=== PATIENT | male | born 1985 | race Caucasian/White ===

== ENCOUNTER 2016-10-31 09:48 | Inpatient (IN) | payer MEDICAID, OTHER ==
[~2016-10-31] VITALS: Ht 165.1 cm; Wt 67.4 kg
[~2016-10-31 09:48] MED LIST: AMPH20TA PO; AMPHETAMINE SALTS PO; CLON1TAB PO; EFFE150C OR; GABAPOW41 PO; LAMI25TA OR; QUET5TAB PO
[2016-10-31 10:42] LABS: MEAN CORPUSCULAR HEMOGLOBIN 30.6 pg (27.0-33.0); MEAN CORPUSCULAR HGB CONC 33.1 g/dl (32.0-36.5); MEAN CORPUSCULAR VOLUME 92.6 fl (80.0-96.0); RED CELL DISTRIBUTION WIDTH 13.5 % (11.5-14.5); WHITE BLOOD COUNT 11.2 K/mm3 (4.0-10.0)
[2016-10-31 10:46] LABS: AMPHETAMINES LEVEL URINE NEGATIVE (NEGATIVE); BENZODIAZEPINES URINE NEGATIVE (NEGATIVE); COCAINE METABOLITE URINE NEGATIVE (NEGATIVE); CONTROL LINE INT CTR LINE PRESENT; METHADONE URINE NEGATIVE (NEGATIVE); OPIATES URINE NEGATIVE (NEGATIVE); TRICYCLIC ANTIDEPRESS URINE NEGATIVE (NEGATIVE)
[2016-10-31 11:09] LABS: ALBUMIN 4.1 GM/DL (3.2-5.2); ALBUMIN/GLOBULIN RATIO 1.28 (1.00-1.93); ALKALINE PHOSPHATASE 66 U/L (45-117); ALT/SGPT 26 U/L (12-78); ANION GAP 9 MEQ/L (8-16); AST/SGOT 16 U/L (15-37); BILIRUBIN,DIRECT 0.1 MG/DL (0.0-0.2); BILIRUBIN,TOTAL 0.3 MG/DL (0.2-1.0); BLOOD UREA NITROGEN 6 MG/DL (7-18); CALCIUM LEVEL 8.5 MG/DL (8.5-10.1); CARBON DIOXIDE LEVEL 31 MEQ/L (21-32); CHLORIDE LEVEL 105 MEQ/L (98-107); CREATININE FOR GFR 0.93 MG/DL (0.70-1.30); GLOMERULAR FILTRATION RATE > 60.0 (>60); GLUCOSE, FASTING 80 MG/DL (70-105); POTASSIUM SERUM 3.5 MEQ/L (3.5-5.1); SODIUM LEVEL 145 MEQ/L (136-145); TOTAL PROTEIN 7.3 GM/DL (6.4-8.2)
[2016-10-31] MEDS ORDERED: AMPH20CA PO (13:01)
--- NOTE | 2016-10-31 14:11 | EDDOCDS ---
Physician Documentation [facility] Name: Pola Costello Age: 31 yrs Sex: Male : 1985 Arrival Date: 10/31/2016 Time: 09:48 Bed BHU1 Private MD: NO PRIMARY PHYSICIAN, . Disposition: 10/31 12:45 Critical Care: Critical care not applicable. pc Disposition: 10/31/16 12:46 Hospitalization ordered by Idris Perez for Inpatient Admission. Preliminary diagnosis are Major depressive disorder, recurrent, moderate, Suicidal ideations. - Bed requested for Admit. - Status is Inpatient Admission. kcs - Condition is Stable. - Problem is new. - Symptoms are unchanged. HPI: 10:12 This 31 yrs old Male presents to ER via Walkin/Carried/Asstd with complaints pc of Psych Problem. 10:14 The history is obtained from the patient. The patient presents to the emergency pc department with suicidal ideation, depression, anxiety. At their worst, the symptoms were moderate. In the emergency department, the symptoms are unchanged. He is brought in by TLS staff with SI. The patient has experienced similar episodes in the past, multiple times. The patient has been recently seen by a psychiatrist. Historical: - Allergies: no known allergies; - Home Meds: 1. adderall 20mg twice a day (Last dose: 10/31/2016 09:00) 2. clonazepam 1 mg Oral tab 1 tab 3 times per day (Last dose: 10/30/2016 09:00) 3. Seroquel 100 mg Oral tab nightly (Last dose: 10/30/2016 23:00) - PMHx: ADHD; Anxiety; - PSHx: none; - The history from nurses notes was reviewed: and I agree with what is documented. - Social history: Smoking status: Patient uses tobacco products, current every day smoker. No barriers to communication noted, The patient speaks fluent Urdu, Speaks appropriately for age. - : The pt / caregiver states he / she is not on anticoagulants. Home medication list is obtained from the patient. - Hospitalizations: : No recent hospitalization is reported. - Exposure Risk Screening:: None identified. - Immunization history:: All immunizations up-to-date. - Family history: Not pertinent. - Social history:: the patient smokes cigarettes 2ppd the patient drinks alcohol. ROS: 10:14 All systems are negative except as listed. The psychiatric and neurological components pc are also addressed in the HPI. Exam: 10:14 General Appearance: alert, anxious. pc 10:14 ENT: ear, nose and throat normal, pharynx normal. 10:14 Eyes: pupils equal, round and reactive to light, extraocular motions intact. 10:14 Neck: The exam reveals no acute abnormalities. ROM is normal and painless. No nuchal rigidity is noted.. 10:14 Respiratory: breathing is even and unlabored, breath sounds are normal. 10:14 Cardiovascular: regular pulse rate, regular heart rhythm, normal heart sounds, equal and full pulses bilaterally. 10:14 Abdomen: soft, non-tender, no organomegaly, normal bowel sounds. 10:14 Skin: skin color is normal, warm, dry. 10:14 Extremities: The extremities have a grossly normal appearance, are non-tender, without acute ROM abnormalities. 10:14 Neuro: alert, oriented to person, place and time, cranial nerves normal as tested, no motor deficits, no sensory deficits. 10:14 Psych: mood is depressed, suicidal, affect is flat. Vital Signs: 09:50 BP 171 / 93; Pulse 99; Resp 18; Temp 97.7(O); Pulse Ox 99% ; Weight 72.57 kg / 159.99 cmb lbs; Height 5 ft. 5 in. (165.10 cm); Pain 0/10; 09:50 Body Mass Index 26.63 (72.57 kg, 165.10 cm) cmb MDM: 10:05 Consult PFS/PSA/Superintendent [employer]: Patient's case requires discussion with on-call pc Psychiatrist ordered. 10:05 PSA/PFS to call Nursing Java Application Developer, to enter patient data on [place] Safe Act if patient pc involuntarily admitted or transferred for SI or HI ordered. 10:05 Confirm accurate psychiatric medication list and times of last dosage ordered. pc 10:05 Detain Pt Until Medically/PFS Cleared ordered. pc 10:06 Acetaminophen Level Ordered. EDMS 10:06 Basic Metabolic Profile Ordered. EDMS 10:06 Complete Blood Count Ordered. EDMS 10:06 Drug Eval Toxicology ED Only Ordered. EDMS 10:06 Ethyl Alcohol (ethanol) Ordered. EDMS 10:06 Liver Profile Ordered. EDMS 10:06 Salicylate Level Ordered. EDMS 10:06 Thyroid Stimulating Hormone Ordered. EDMS 10:14 Differential diagnosis: depression, suicidal ideation. Plan: labs, PFS eval. pc 10:27 Consult PFS/PSA/Super[employer]: Patient's case requires discussion with on-call mk4 Psychiatrist complete. 10:27 PSA/PFS to call Nursing Java Application Developer, to enter patient data on [facility] Safe Act if patient mk4 involuntarily admitted or transferred for SI or HI complete. 11:05 Financial registration complete. lg 11:11 Complete Blood Count Reviewed. pc 11:11 Drug Eval Toxicology ED Only Reviewed. pc 11:44 Acetaminophen Level Reviewed. pc 11:44 Basic Metabolic Profile Reviewed. pc 11:44 Salicylate Level Reviewed. pc 11:44 Ethyl Alcohol (ethanol) Reviewed. pc 11:44 Liver Profile Reviewed. pc 11:44 Thyroid Stimulating Hormone Reviewed. pc 11:52 REGULAR DIET PLASTIC BOOGIE+DIET ordered. EDMS 12:45 The patient has been medically cleared for psychiatric evaluation, admission and/or pc transfer. [place] Safe Act reporting: The patient poses a significant risk to self or others, and PSA/PFS has notified the Nursing Java Application Developer and he/she will complete the required data warehousing architect. Data reviewed: old medical records, vital signs, nurses notes, lab test results. Test interpretation: LAB - all labs as ordered have been reviewed, interpreted and considered in the overall management of the clinical presentation;. The patient has been re-examined and re-evaluated. There is no appreciated change of the patient's symptoms at this time. Disposition: The historical points, examination findings, and any diagnostic results supporting the provided diagnosis, were discussed with the patient or legal guardian. The need for further work-up and/or treatment in the hospital was explained. 13:12 Admit to IM: ordered. EDMS 13:29 [facility] [place] was scanned into [employer] and attached to record. lg 13:33 M[facility] Legal paperwork was scanned into [employer] and attached to record. wild Signatures: Dispatcher [employer] EDDC Lucas Williamson MD MD pc Sleeman, Kacey, RN RN kcs Michelson, Staci, RN RN srm Ganter, LoriLee, Reg Reg lg Adriana Weston, PSA PSA jfSuki Lozano RN RN mk4 The chart was reviewed and I authenticate all verbal orders and agree with the evaluation and treatment provided.Attachments: 13:29 [facility] Payment Agreement lg MTDD
--- NOTE | 2016-10-31 14:11 | EDDOCDS ---
Nurse's Notes [facility] Name: Pola Costello Age: 31 yrs Sex: Male : 1985 Arrival Date: 10/31/2016 Time: 09:48 Bed [facility] Private MD: NO PRIMARY PHYSICIAN, . Diagnosis: Major depressive disorder, recurrent, moderate;Suicidal ideations Presentation: 10/31 09:54 Presenting complaint: Patient states: suicidal ideation and " feeling lost " for about srm a week. resides at [facility]. denies OD or injuring self. Mental Health Triage Level: Level 2: The patient displays active suicidal ideations. Adult Sepsis Screening: The patient does not have new or worsening altered mentation. Patient's respiratory rate is less than 22. Systolic blood pressure is greater than 100. Patient has a qSOFA score of 0- Negative Sepsis Screen. Suicide/Homicide risk assessment- The patient admits to and/or has been reported to be having suicidal ideations. The patient reports that he/she has not been admitted to an inpatient mental health facility in the last 30 days. The patient reports that he/she does not have a recent or current history of substance abuse. The patient reports that he/she has no prior history of suicide attempt and/or organized plan. The patient reports that he/she has experienced a significant life altering event in the last 30 days. The patient reports that he/she has adequate social support. Status: Patient is not a conference services director or dependent. Transition of care: patient was not received from another setting of care. 09:54 Acuity: DESIRAE Level 3 [facility] 09:54 Method Of Arrival: Walkin/Carried/Asstd [facility] Triage Assessment: 09:57 General: Appears in no apparent distress, Behavior is appropriate for age, cooperative. srm Pain: Denies pain. HIV screening NA for this visit Offered previously. Historical: - Allergies: no known allergies; - Home Meds: 1. adderall 20mg twice a day (Last dose: 10/31/2016 09:00) 2. clonazepam 1 mg Oral tab 1 tab 3 times per day (Last dose: 10/30/2016 09:00) 3. Seroquel 100 mg Oral tab nightly (Last dose: 10/30/2016 23:00) - PMHx: ADHD; Anxiety; - PSHx: none; - The history from nurses notes was reviewed: and I agree with what is documented. - Social history: Smoking status: Patient uses tobacco products, current every day smoker. No barriers to communication noted, The patient speaks fluent Kuwaiti, Speaks appropriately for age. - : The pt / caregiver states he / she is not on anticoagulants. Home medication list is obtained from the patient. - Hospitalizations: : No recent hospitalization is reported. - Exposure Risk Screening:: None identified. - Immunization history:: All immunizations up-to-date. - Family history: Not pertinent. - Social history:: the patient smokes cigarettes 2ppd the patient drinks alcohol. Screenin:47 Screening information is obtained from the patient. Fall risk: No risks identified. kcs Assistance ADL's: requires no assistance with activities of daily living. Abuse/DV Screen: The patient / caregiver reports he/she is: not in a situation that causes fear, pain or injury. Nutritional screening: No deficits noted. Advance Directives: Currently, there is no health care proxy. There is no living will. home support is adequate. Assessment: 10:28 General: Appears in no apparent distress, comfortable, Behavior is cooperative, sitting mk4 quietly with TLs worker , denies needs . Neurological: Level of Consciousness is awake, alert, Oriented to person, place, time. Respiratory: Airway is patent Respiratory effort is even, unlabored, Respiratory pattern is regular. 11:15 Reassessment: Patient standing in room - talking and smiling with TLS staff. Denies any kcs needs. Given coffee. Pleasant and cooperative. Respirations easy. Color = pink. Security observing.. 12:30 General: Patient eating lunch.. kcs 12:42 General: DEEPA Wilson talking with patient.. kcs 12:49 Reassessment: Patient now eating boxed lunch. Pleasant and cooperative. Security kcs observing.. 13:13 Reassessment: Patient still eating. Pleasant and cooperative. Good eye contact. Denies kcs any needs. Respirations easy. Color = pink. Security observing.. 14:08 Reassessment: Patient appears in no apparent distress at this time. Patient denies pain kcs at this time. General: Appears comfortable, well developed, well nourished, Behavior is cooperative, pleasant. Pain: Denies pain. Neurological: Level of Consciousness is awake, alert. Respiratory: Airway is patent Respiratory effort is even, unlabored, Respiratory pattern is regular, symmetrical. Derm: Skin is intact, is healthy with good turgor, Skin is dry, Skin is normal. Mental Health Eval: 12:52 Status: The patient is not a conference services director or dependent. [facility] Behavioral Health: The patient is not an established patient of [facility] Behavioral Health. Referral Information: Evaluation referral is generated by the patient himself / herself. The patient was referred for evaluation because +SI. Subjective: The patients chief complaint is PT states that about 2 weeks ago his depression began to worsen and he started having SI. PT denies plan but states he would want it as pain free as possible. PT states he trouble focusing and concentrating and is having mood swings to include depressed to manic. "I don't feel safe with myself" PT states he wants to get help before he tries to hurt himself and cannot CFS. PT's TLS worker present and he states PT has been trying to manage his symptoms but today he asked to come to ED for admition.. Delusions are denied. Patient's mood is appropriate. Hallucinations are denied. Mental Health history: ADHD, anxiety, depression, sleep disturbance, suicide attempt by OD several years ago ideation currently Mental Health Admissions: Since 2009 PT has 4 admission-three to [facility] and one [facility]. Last admission was 05/2016 Current Outpatient Mental Health Services: Psychiatrist / Agency: [facility]. Therapist / Agency: [facility]. Medical Office Technologist / Agency: [facility]. Current living environment is The patient currently lives in a [facility] apartment. Patient presents to Emergency Department with the following symptoms within the past 2 weeks: anxiety, depressed mood, labile mood, poor concentration, suicidal ideation with no plan. Substance abuse: Patient uses marijuana occasionally. Mental status exam: Patients appearance is appropriate, Patient's behavior is cooperative, Speech is normal. Affect is appropriate. Mood is appropriate. Hallucinations are denied. Appetite is normal. Memory is good. Energy level is normal. Content of thought is depressive. cannot CFS Thought process is intact. Cognitive level is oriented to person, place, time and situation Patient's insight is fair. Judgement is fair. Rapport with interviewer is good. Suicidal Ideation is present with no specific plan. Homicidal ideation is denied. Disposition: Medically cleared for disposition by Lucas Williamson MD Psychiatric Consult is performed by phone with Dr Idris Perez MD. [facility] Admission Criteria: The patient is experiencing suicidal ideation. The patient requires continuous observation and/or control to protect self, others or property. The patient's care requires a multi-modal treatment plan under close supervision and coordination due to the complexity and severity of the patient's symptoms. Legal Status: Patient's legal status will be Emergency admission: 39. [place] Safe [place] because patient was registered less than 6 months ago. DSM-V Differential Diagnosis: Unspecified Depressive Disorder (F32.9). Awaiting: transfer to [facility]. Vital Signs: 09:50 BP 171 / 93; Pulse 99; Resp 18; Temp 97.7(O); Pulse Ox 99% ; Weight 72.57 kg; Height 5 cmb ft. 5 in. (165.10 cm); Pain 0/10; 09:50 Body Mass Index 26.63 (72.57 kg, 165.10 cm) cmb Vitals: 09:50 Log In Time: October 31, 2016 at 09:45. cmb ED Course: 09:49 Patient visited by Amy Bruce. cmb 09:49 Patient moved to Waiting cmb 09:50 NO PRIMARY PHYSICIAN, . is Private Physician. cmb 09:51 RN notified that patient meets Red Flag criteria. cmb 09:55 Triage Initiated srm 09:58 Patient moved to [facility] srm 10:05 Lucas Williamson MD is Attending Physician. pc 10:07 Patient visited by Ish Blake. dpm 10:07 Pt greeted and oriented to ED. Patient advised of names of staff involved in care, dpm location of call peacock, wait times and NPO status. Patient has correct armband on for positive identification. Placed in gown. Placed in psych safe attire. Bed in low position. Side rails up X 1. Security observing. Property removed, inventory done, secured in belongings bag- placed in locked locker. Placed in locker 1. Psych Safety Check: Location: Psych Room. Visual Assessment: Cooperative. 10:16 Patient visited by Lucas Williamson MD. pc 10:26 Acetaminophen Level Sent. mk4 10:27 Basic Metabolic Profile Sent. mk4 10:27 Complete Blood Count Sent. mk4 10:27 Drug Eval Toxicology ED Only Sent. mk4 10:27 Ethyl Alcohol (ethanol) Sent. mk4 10:27 Liver Profile Sent. mk4 10:27 Salicylate Level Sent. mk4 10:27 Thyroid Stimulating Hormone Sent. mk4 10:31 Patient visited by Ish Blake. dpm 10:45 Patient visited by Ish Blkae. dpm 11:00 Patient visited by Ish Blake. dpm 11:21 Patient visited by Ish Blake. dpm 11:29 Patient visited by Ish Blake. dpm 11:50 Patient visited by Ish Blake. dpm 12:04 Patient visited by Ish Blake. dpm 12:26 Patient visited by Ish Blake. dpm 12:42 Patient visited by Ish Blake. dpm 12:46 Idris Perez MD is Hospitalizing Provider. pc 12:47 The patient / caregiver is instructed regarding the plan of care and ED course. kcs 12:47 No IV's were initiated during this patient's visit. No procedures done that require kcs assistance. 13:22 Patient visited by Ish Blake. dpm 13:29 [facility] Payment Agreement was scanned into [employer] and attached to record. lg 13:33 E Legal paperwork was scanned into [employer] and attached to record. jfb 13:38 Patient visited by Ish Blake. dpm 13:54 Patient visited by Ish Blake. dpm 14:09 Patient visited by Ish Blake. dpm Attachments: 13:33 E Legal paperwork jfb Order Results: Lab Order: Acetaminophen Level; SPEC'M 10/31/16 10:16 Test: ACETAMINOPHEN LEVEL; Value: < 2.0; Range: 10.0-30.0; Abnormal: Below low normal; Units: UG/ML; Status: F Lab Order: Basic Metabolic Profile; SPEC'M 10/31/16 10:16 Test: GLUCOSE, FASTING; Value: 80; Range: 70-105; Units: MG/DL; Status: F Test: BLOOD UREA NITROGEN; Value: 6; Range: 7-18; Abnormal: Below low normal; Units: MG/DL; Status: F Test: CREATININE FOR GFR; Value: 0.93; Range: 0.70-1.30; Units: MG/DL; Status: F Test: GLOMERULAR FILTRATION RATE; Value: > 60.0; Range: >60; Status: F Test: SODIUM LEVEL; Value: 145; Range: 136-145; Units: MEQ/L; Status: F Test: POTASSIUM SERUM; Value: 3.5; Range: 3.5-5.1; Units: MEQ/L; Status: F Test: CHLORIDE LEVEL; Value: 105; Range: 98-107; Units: MEQ/L; Status: F Test: CARBON DIOXIDE LEVEL; Value: 31; Range: 21-32; Units: MEQ/L; Status: F Test: ANION GAP; Value: 9; Range: 8-16; Units: MEQ/L; Status: F Test: CALCIUM LEVEL; Value: 8.5; Range: 8.5-10.1; Units: MG/DL; Status: F Test Note: ; Units are mL/min/1.73 m2 Chronic Kidney Disease Staging per NKF: Stage I & II GFR >=60 Normal to Mildly Decreased Stage III GFR 30-59 Moderately Decreased Stage IV GFR 15-29 Severely Decreased Stage V GFR <15 Very Little GFR Left ESRD GFR <15 on AREA INTELLIGENCE TECHNICIAN Lab Order: Complete Blood Count; SPEC'M 10/31/16 10:16 Test: WHITE BLOOD COUNT; Value: 11.2; Range: 4.0-10.0; Abnormal: Above high normal; Units: K/mm3; Status: F Test: RED BLOOD COUNT; Value: 4.81; Range: 4.30-6.10; Units: M/mm3; Status: F Test: HEMOGLOBIN; Value: 14.7; Range: 14.0-18.0; Units: g/dl; Status: F Test: HEMATOCRIT; Value: 44.5; Range: 42.0-52.0; Units: %; Status: F Test: MEAN CORPUSCULAR VOLUME; Value: 92.6; Range: 80.0-96.0; Units: fl; Status: F Test: MEAN CORPUSCULAR HEMOGLOBIN; Value: 30.6; Range: 27.0-33.0; Units: pg; Status: F Test: MEAN CORPUSCULAR HGB CONC; Value: 33.1; Range: 32.0-36.5; Units: g/dl; Status: F Test: RED CELL DISTRIBUTION WIDTH; Value: 13.5; Range: 11.5-14.5; Units: %; Status: F Test: PLATELET COUNT, AUTOMATED; Value: 252; Range: 150-450; Units: k/mm3; Status: F Lab Order: Drug Eval Toxicology ED Only; SPEC'M 10/31/16 10:16 Test: AMPHETAMINES LEVEL URINE; Value: NEGATIVE; Range: NEGATIVE; Status: F Test: BARBITURATES URINE; Value: NEGATIVE; Range: NEGATIVE; Status: F Test: BENZODIAZEPINES URINE; Value: NEGATIVE; Range: NEGATIVE; Status: F Test: CANNABINOIDS URINE; Value: POSITIVE; Range: NEGATIVE; Abnormal: Above high normal; Status: F Test: COCAINE METABOLITE URINE; Value: NEGATIVE; Range: NEGATIVE; Status: F Test: METHADONE URINE; Value: NEGATIVE; Range: NEGATIVE; Status: F Test: OPIATES URINE; Value: NEGATIVE; Range: NEGATIVE; Status: F Test: TRICYCLIC ANTIDEPRESS URINE; Value: NEGATIVE; Range: NEGATIVE; Status: F Test Note: ; FALSE POSITIVE RESULTS CAN BE CAUSED BY THE USE OF PANTOPRAZOLE (PROTONIX). Lab Order: Ethyl Alcohol (ethanol); SPEC'M 10/31/16 10:16 Test: ETHYL ALCOHOL (ETHANOL); Value: < 0.003; Range: 0.000-0.010; Units: %; Status: F Lab Order: Liver Profile; SPEC'M 10/31/16 10:16 Test: AST/SGOT; Value: 16; Range: 15-37; Units: U/L; Status: F Test: ALT/SGPT; Value: 26; Range: 12-78; Units: U/L; Status: F Test: ALKALINE PHOSPHATASE; Value: 66; Range: 45-117; Units: U/L; Status: F Test: BILIRUBIN,TOTAL; Value: 0.3; Range: 0.2-1.0; Units: MG/DL; Status: F Test: BILIRUBIN,DIRECT; Value: 0.1; Range: 0.0-0.2; Units: MG/DL; Status: F Test: TOTAL PROTEIN; Value: 7.3; Range: 6.4-8.2; Units: GM/DL; Status: F Test: ALBUMIN; Value: 4.1; Range: 3.2-5.2; Units: GM/DL; Status: F Test: ALBUMIN/GLOBULIN RATIO; Value: 1.28; Range: 1.00-1.93; Status: F Lab Order: Salicylate Level; SPEC'M 10/31/16 10:16 Test: SALICYLATE LEVEL; Value: 2.8; Range: 5.0-30.0; Abnormal: Below low normal; Units: MG/DL; Status: F Lab Order: Thyroid Stimulating Hormone; SPEC'M 10/31/16 10:16 Test: THYROID STIMULATING HORMONE; Value: 2.630; Range: 0.358-3.740; Units: uIU/ML; Status: F Outcome: 12:46 Decision to Hospitalize by Provider. pc 14:08 Discharge Assessment: Patient awake, alert and oriented x 3. No cognitive and/or kcs functional deficits noted. Patient verbalized understanding of disposition instructions. Patient awake and alert. patient administered narcotics - no. The following High Risk Discharge criteria are identified: Yes, patient has been evaluated by PSA.. Admitted to Psych accompanied by tech, via wheelchair, with chart. Condition: stable. No special radiology studies were completed. Property :Personal belongings accompany Pt. 14:10 Patient left the ED. kcs Signatures: Lucas Williamson MD MD pc Sleeman, Kacey, RN RN Chantel Hector RN RN [facility] Hugh Chino, Abisai Reg lg Adriana Weston, PSA PSA Ish Clemente dpm, Chelsea cmb King, Margaret, RN RN mk4 Corrections: (The following items were deleted from the chart) 11:17 11:15 Reassessment: Patient standing in room - talking and smiling with TLS staff. kcs Denies any needs. Given coffee. Pleasant and cooperative. Respirations easy. Color = pink.. kcs 13:18 12:52 Mental Health history: ADHD, anxiety, depression, sleep disturbance, suicide jfb attempt by OD several years ago ideation currently Mental Health Admissions: Since 2009 PT has 4 admission-three to [facility] and one [facility]. Last admission was 05/2016 Current Outpatient Mental Health Services: Psychiatrist / Agency: [facility]. Therapist / Agency: [facility] Marie Medical Office Technologist / Agency: [facility]. Current living environment is The patient currently lives in a [facility] apartment. jfb JACKD
[2016-10-31 15:03] VITALS: BP 138/89
[2016-10-31] MEDS ORDERED: MOM 30ML SUSPENSION UDC PO PRN (16:45)
[2016-10-31] MEDS ORDERED: MAALOX 30 ML SUSP *UDC PO PRN (16:45)
[2016-10-31] MEDS ORDERED: QUEtiapine FUMARATE 25 MG TAB PO PRN (16:45)
[2016-10-31] MEDS: clonazePAM 1 MG TAB PO PRN (21:30)
[2016-10-31] MEDS: QUEtiapine FUMARATE 100 MG TAB PO SCH (21:30)
[2016-11-01] MEDS: IBUPROFEN 400 MG TAB PO PRN (06:33)
[2016-11-01 06:36] VITALS: BP 141/80
[2016-11-01] MEDS: NICOTINE 21MG/24HR 1 EA TRANSDERMAL TD SCH (08:40)
[2016-11-01] MEDS: ADDERALL 5 MG TAB PO SCH ×2 (08:40→12:58)
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
--- NOTE | 2016-11-01 10:26 | HPEPDOC ---
Medical History and Physical Date of Admission Oct 31, 2016 at 14:17 History and Physical PCP: None ATTENDING: Dr. Mario Alberto Shirley HPI: 31yoM admitted to [facility] for depressive disorder unspecified, being medically examined today. No acute medical complaints today. Denies any fevers, chills, weakness, fatigue, SIGALA, CP, SOB, cough, palpitations, abdominal pain, N/V /D or changes in bowel or bladder habits. PMHx: ADHD Anxiety Panic disorder Insomnia Bipolar disorder Tobacco use Poor dentition PSHX: Denies SOCHX: Resides in: [facility] Marital Status: Single Kids: None Employment: Unemployed Tobacco use: 2 packs per day ETOH: One to 2 times per month 3-5 drinks Illicit Drugs: Marijuana monthly IV Drug Use: Denies Tattoos done unprofessionally: Denies FAMHX: Mother: , breast cancer Father: Alive, unknown Siblings: Alive, well Children: None Unexpected deaths due to medical reasons: None. ROS: As noted in HPI, otherwise 11pt ROS of systems reviewed and unremarkable PE: GEN: 31yoM, appears stated age. Well-nourished, well developed. No acute distress. Alert and oriented x 3. Pleasant, interactive. HEENT: Normocephalic, atraumatic. Pupils are equal, round, and reactive to light. Extraocular movements are intact. No nystagmus appreciated. Sclera are nonicteric. Conjunctiva without injection. Nose midline. Nasal turbinates without bogginess. EACs both patent BL. TMs both visualized and ghotra with good cone of light, no bulging or erythema. No facial asymmetry. Moist mucous membranes. Dentition poor. Pharynx pink and moist, no cobblestoning. Neck supple , trachea midline. No lymphadenopathy or thyromegaly appreciated. CHEST: Regular rate and rhythm, +S1, +S2 LUNGS: Clear to auscultation bilaterally. No wheezes, rales, or rhonchi. Breathing appears symmetric and easy. Patient is speaking in full sentences. No accessory muscle use. ABD: Round, soft, non-tender, non-distended. +Bowel sounds throughout. No rebound or guarding. No costovertebral angle tenderness. EXT: Pulses 2+ bilaterally dorsalis pedis and radial. No lower extremity edema appreciated. SKIN: [place], dry, warm. Capillary refill <2sec. No rashes. NEURO: Alert and oriented x 3. Cranial nerves III-XII are intact. No focal deficits appreciated. EK06/29/16 SR. Nonspecific T wave abnormalities. A&P: 31yoM admitted to [facility] for depressive disorder unspecified 1. Psych. Plan per Psychiatry. EKG on file. 2. Nicotine dependence. Patch available. 3. Poor dentition. No acute issues at this time. Ibuprofen if needed. Arrange dental appointment at discharge. 4. Follow up. No Primary Care Provider. Will attempt to establish PCP on discharge. 5. Leukocytosis. Patient is afebrile. Asymptomatic. Recheck CBC 6. Cannabinoid use. 7. Staff member present throughout exam, kendra Castañeda. Vital Signs Vital Signs Label Value Date Time Patient Temperature 96.4 degrees F 11/01/16 0636 Temperature Source Tympanic 11/01/16 0636 Pulse 59 11/01/16 0636 Respiratory Rate 18 bpm 11/01/16 0636 Blood Pressure Assessment 141/80 (100) 11/01/16 0636 Laboratory Data Labs 24H Item Value Date Time White Blood Count 11.2 K/mm3 H 10/31/16 1016 Red Blood Count 4.81 M/mm3 10/31/16 1016 Hemoglobin 14.7 g/dl 10/31/16 1016 Hematocrit 44.5 % 10/31/16 1016 Mean Corpuscular Volume 92.6 fl 10/31/16 1016 Mean Corpuscular Hemoglobin 30.6 pg 10/31/16 1016 Mean Corpuscular Hemoglobin Concent 33.1 g/dl 10/31/16 1016 Red Cell Distribution Width 13.5 % 10/31/16 1016 Platelet Count 252 k/mm3 10/31/16 1016 Sodium Level 145 MEQ/L 10/31/16 1016 Potassium Level 3.5 MEQ/L 10/31/16 1016 Chloride Level 105 MEQ/L 10/31/16 1016 Carbon Dioxide Level 31 MEQ/L 10/31/16 1016 Anion Gap 9 MEQ/L 10/31/16 1016 Blood Urea Nitrogen 6 MG/DL L 10/31/16 1016 Creatinine 0.93 MG/DL 10/31/16 1016 Glomerular Filtration Rate > 60.0 10/31/16 1016 Fasting Glucose 80 MG/DL 10/31/16 1016 Calcium Level 8.5 MG/DL 10/31/16 1016 Total Bilirubin 0.3 MG/DL 10/31/16 1016 Direct Bilirubin 0.1 MG/DL 10/31/16 1016 Aspartate Amino Transf (AST/SGOT) 16 U/L 10/31/16 1016 Alanine Aminotransferase (ALT/SGPT) 26 U/L 10/31/16 1016 Total Protein 7.3 GM/DL 10/31/16 1016 Albumin 4.1 GM/DL 10/31/16 1016 Albumin/Globulin Ratio 1.28 10/31/16 1016 Thyroid Stimulating Hormone (TSH) 2.630 uIU/ML 10/31/16 1016 Salicylates Level 2.8 MG/DL L 10/31/16 1016 Urine Opiates Screen NEGATIVE 10/31/16 1016 Urine Methadone Screen NEGATIVE 10/31/16 1016 Acetaminophen Level < 2.0 UG/ML L 10/31/16 1016 Urine Barbiturates, Qualitative NEGATIVE 10/31/16 1016 Urine Tricyclic Antidepressants NEGATIVE 10/31/16 1016 Urine Amphetamine Level NEGATIVE 10/31/16 1016 Urine Benzodiazepines Screen NEGATIVE 10/31/16 1016 Urine Cocaine Metabolite NEGATIVE 10/31/16 1016 Urine Cannabinoids POSITIVE H 10/31/16 1016 Ethyl Alcohol Level < 0.003 % 10/31/16 1016 Home Medications Scheduled Amphetamine/Dextroamphetamine (Amphetamine/Dextroampheta 20 mg) 1 Cap Cap 1 CAP PO BID Quetiapine Fumerate (Quetiapine Fumarate) 50 Mg Tab 100 MG PO QHS SLEEP Scheduled PRN Clonazepam (Clonazepam) 1 Mg Tab 1 MG PO TIDP PRN PRN ANXIETY Allergies Coded Allergies: No Known Drug Allergy (Verified Allergy, Unknown, 01/20/13) Chiara Sharpe Nov 01, 2016 10:26
[2016-11-01 18:00] VITALS: BP 148/82
[2016-11-01] MEDS: clonazePAM 1 MG TAB PO PRN (20:47)
[2016-11-01] MEDS: QUEtiapine FUMARATE 100 MG TAB PO SCH (20:47)
[2016-11-02 06:41] VITALS: BP 139/84
[2016-11-02 07:01] LABS: MEAN CORPUSCULAR HEMOGLOBIN 31.2 pg (27.0-33.0); MEAN CORPUSCULAR HGB CONC 34.2 g/dl (32.0-36.5); MEAN CORPUSCULAR VOLUME 91.2 fl (80.0-96.0); RED CELL DISTRIBUTION WIDTH 12.6 % (11.5-14.5); WHITE BLOOD COUNT 7.4 K/mm3 (4.0-10.0)
[2016-11-02] MEDS: ADDERALL 5 MG TAB PO SCH ×2 (08:30→13:13)
[2016-11-02] MEDS: NICOTINE 21MG/24HR 1 EA TRANSDERMAL TD SCH (08:30)
[2016-11-02] MEDS: IBUPROFEN 400 MG TAB PO PRN (11:57)
--- NOTE | 2016-11-02 15:11 | EDDOCDS ---
Physician Documentation [facility] Name: Pola Costello Age: 31 yrs Sex: Male : 1985 Arrival Date: 10/31/2016 Time: 09:48 Bed BHU1 Private MD: NO PRIMARY PHYSICIAN, . Disposition: 10/31 12:45 Critical Care: Critical care not applicable. pc Disposition: 10/31/16 12:46 Hospitalization ordered by Idris Perez for Inpatient Admission. Preliminary diagnosis are Major depressive disorder, recurrent, moderate, Suicidal ideations. - Bed requested for Admit. - Status is Inpatient Admission. kcs - Condition is Stable. - Problem is new. - Symptoms are unchanged. HPI: 10:12 This 31 yrs old Male presents to ER via Walkin/Carried/Asstd with complaints pc of Psych Problem. 10:14 The history is obtained from the patient. The patient presents to the emergency pc department with suicidal ideation, depression, anxiety. At their worst, the symptoms were moderate. In the emergency department, the symptoms are unchanged. He is brought in by [facility] staff with SI. The patient has experienced similar episodes in the past, multiple times. The patient has been recently seen by a psychiatrist. Historical: - Allergies: no known allergies; - Home Meds: 1. adderall 20mg twice a day (Last dose: 10/31/2016 09:00) 2. clonazepam 1 mg Oral tab 1 tab 3 times per day (Last dose: 10/30/2016 09:00) 3. Seroquel 100 mg Oral tab nightly (Last dose: 10/30/2016 23:00) - PMHx: ADHD; Anxiety; - PSHx: none; - The history from nurses notes was reviewed: and I agree with what is documented. - Social history: Smoking status: Patient uses tobacco products, current every day smoker. No barriers to communication noted, The patient speaks fluent Vietnamese, Speaks appropriately for age. - : The pt / caregiver states he / she is not on anticoagulants. Home medication list is obtained from the patient. - Hospitalizations: : No recent hospitalization is reported. - Exposure Risk Screening:: None identified. - Immunization history:: All immunizations up-to-date. - Family history: Not pertinent. - Social history:: the patient smokes cigarettes 2ppd the patient drinks alcohol. ROS: 10:14 All systems are negative except as listed. The psychiatric and neurological components pc are also addressed in the HPI. Exam: 10:14 General Appearance: alert, anxious. pc 10:14 ENT: ear, nose and throat normal, pharynx normal. 10:14 Eyes: pupils equal, round and reactive to light, extraocular motions intact. 10:14 Neck: The exam reveals no acute abnormalities. ROM is normal and painless. No nuchal rigidity is noted.. 10:14 Respiratory: breathing is even and unlabored, breath sounds are normal. 10:14 Cardiovascular: regular pulse rate, regular heart rhythm, normal heart sounds, equal and full pulses bilaterally. 10:14 Abdomen: soft, non-tender, no organomegaly, normal bowel sounds. 10:14 Skin: skin color is normal, warm, dry. 10:14 Extremities: The extremities have a grossly normal appearance, are non-tender, without acute ROM abnormalities. 10:14 Neuro: alert, oriented to person, place and time, cranial nerves normal as tested, no motor deficits, no sensory deficits. 10:14 Psych: mood is depressed, suicidal, affect is flat. Vital Signs: 09:50 BP 171 / 93; Pulse 99; Resp 18; Temp 97.7(O); Pulse Ox 99% ; Weight 72.57 kg / 159.99 cmb lbs; Height 5 ft. 5 in. (165.10 cm); Pain 0/10; 09:50 Body Mass Index 26.63 (72.57 kg, 165.10 cm) cmb MDM: 10:05 Consult PFS/PSA/Senior Manager Creative Services: Patient's case requires discussion with on-call pc Psychiatrist ordered. 10:05 PSA/PFS to call Nursing Cattle Sticker, to enter patient data on [place] Safe Act if patient pc involuntarily admitted or transferred for SI or HI ordered. 10:05 Confirm accurate psychiatric medication list and times of last dosage ordered. pc 10:05 Detain Pt Until Medically/PFS Cleared ordered. pc 10:06 Acetaminophen Level Ordered. EDMS 10:06 Basic Metabolic Profile Ordered. EDMS 10:06 Complete Blood Count Ordered. EDMS 10:06 Drug Eval Toxicology ED Only Ordered. EDMS 10:06 Ethyl Alcohol (ethanol) Ordered. EDMS 10:06 Liver Profile Ordered. EDMS 10:06 Salicylate Level Ordered. EDMS 10:06 Thyroid Stimulating Hormone Ordered. EDMS 10:14 Differential diagnosis: depression, suicidal ideation. Plan: labs, PFS eval. pc 10:27 Consult PFS/PSA/Senior Manager Creative Services: Patient's case requires discussion with on-call mk4 Psychiatrist complete. 10:27 PSA/PFS to call Nursing Cattle Sticker, to enter patient data on [facility] Safe Act if patient mk4 involuntarily admitted or transferred for SI or HI complete. 11:05 Financial registration complete. lg 11:11 Complete Blood Count Reviewed. pc 11:11 Drug Eval Toxicology ED Only Reviewed. pc 11:44 Acetaminophen Level Reviewed. pc 11:44 Basic Metabolic Profile Reviewed. pc 11:44 Salicylate Level Reviewed. pc 11:44 Ethyl Alcohol (ethanol) Reviewed. pc 11:44 Liver Profile Reviewed. pc 11:44 Thyroid Stimulating Hormone Reviewed. pc 11:52 REGULAR DIET PLASTIC BOOGIE+DIET ordered. EDMS 12:45 The patient has been medically cleared for psychiatric evaluation, admission and/or pc transfer. [place] Safe Act reporting: The patient poses a significant risk to self or others, and PSA/PFS has notified the Nursing Cattle Sticker and he/she will complete the required data clerk. Data reviewed: old medical records, vital signs, nurses notes, lab test results. Test interpretation: LAB - all labs as ordered have been reviewed, interpreted and considered in the overall management of the clinical presentation;. The patient has been re-examined and re-evaluated. There is no appreciated change of the patient's symptoms at this time. Disposition: The historical points, examination findings, and any diagnostic results supporting the provided diagnosis, were discussed with the patient or legal guardian. The need for further work-up and/or treatment in the hospital was explained. 13:12 Admit to IM: ordered. EDMS 13:29 [facility] [place] Agreement was scanned into [employer] and attached to record. lg 13:33 [facility] Legal paperwork was scanned into [employer] and attached to record. wild Signatures: Dispatcher [employer] EDCO Lucas Williamson MD MD pc Sleeman, Kacey, RN RN kcs Michelson, Staci, RN RN srm Ganter, LoriLee, Reg Reg lg Adriana Weston, PSA PSA jfSuki Lozano RN RN mk4 The chart was reviewed and I authenticate all verbal orders and agree with the evaluation and treatment provided.Attachments: 13:29 [facility] Payment Agreement lg Chart Complete MTDD
--- NOTE | 2016-11-02 15:11 | EDDOCDS ---
Physician Documentation [facility] Name: Pola Costello Age: 31 yrs Sex: Male : 1985 Arrival Date: 10/31/2016 Time: 09:48 Bed BHU1 Private MD: NO PRIMARY PHYSICIAN, . Disposition: 10/31 12:45 Critical Care: Critical care not applicable. pc Disposition: 10/31/16 12:46 Hospitalization ordered by Idris Perez for Inpatient Admission. Preliminary diagnosis are Major depressive disorder, recurrent, moderate, Suicidal ideations. - Bed requested for Admit. - Status is Inpatient Admission. kcs - Condition is Stable. - Problem is new. - Symptoms are unchanged. HPI: 10:12 This 31 yrs old Male presents to ER via Walkin/Carried/Asstd with complaints pc of Psych Problem. 10:14 The history is obtained from the patient. The patient presents to the emergency pc department with suicidal ideation, depression, anxiety. At their worst, the symptoms were moderate. In the emergency department, the symptoms are unchanged. He is brought in by TLS staff with SI. The patient has experienced similar episodes in the past, multiple times. The patient has been recently seen by a psychiatrist. Historical: - Allergies: no known allergies; - Home Meds: 1. adderall 20mg twice a day (Last dose: 10/31/2016 09:00) 2. clonazepam 1 mg Oral tab 1 tab 3 times per day (Last dose: 10/30/2016 09:00) 3. Seroquel 100 mg Oral tab nightly (Last dose: 10/30/2016 23:00) - PMHx: ADHD; Anxiety; - PSHx: none; - The history from nurses notes was reviewed: and I agree with what is documented. - Social history: Smoking status: Patient uses tobacco products, current every day smoker. No barriers to communication noted, The patient speaks fluent Danish, Speaks appropriately for age. - : The pt / caregiver states he / she is not on anticoagulants. Home medication list is obtained from the patient. - Hospitalizations: : No recent hospitalization is reported. - Exposure Risk Screening:: None identified. - Immunization history:: All immunizations up-to-date. - Family history: Not pertinent. - Social history:: the patient smokes cigarettes 2ppd the patient drinks alcohol. ROS: 10:14 All systems are negative except as listed. The psychiatric and neurological components pc are also addressed in the HPI. Exam: 10:14 General Appearance: alert, anxious. pc 10:14 ENT: ear, nose and throat normal, pharynx normal. 10:14 Eyes: pupils equal, round and reactive to light, extraocular motions intact. 10:14 Neck: The exam reveals no acute abnormalities. ROM is normal and painless. No nuchal rigidity is noted.. 10:14 Respiratory: breathing is even and unlabored, breath sounds are normal. 10:14 Cardiovascular: regular pulse rate, regular heart rhythm, normal heart sounds, equal and full pulses bilaterally. 10:14 Abdomen: soft, non-tender, no organomegaly, normal bowel sounds. 10:14 Skin: skin color is normal, warm, dry. 10:14 Extremities: The extremities have a grossly normal appearance, are non-tender, without acute ROM abnormalities. 10:14 Neuro: alert, oriented to person, place and time, cranial nerves normal as tested, no motor deficits, no sensory deficits. 10:14 Psych: mood is depressed, suicidal, affect is flat. Vital Signs: 09:50 BP 171 / 93; Pulse 99; Resp 18; Temp 97.7(O); Pulse Ox 99% ; Weight 72.57 kg / 159.99 cmb lbs; Height 5 ft. 5 in. (165.10 cm); Pain 0/10; 09:50 Body Mass Index 26.63 (72.57 kg, 165.10 cm) cmb MDM: 10:05 Consult PFS/PSA/Ice Maker: Patient's case requires discussion with on-call pc Psychiatrist ordered. 10:05 PSA/PFS to call Nursing Cone Machine Operator, to enter patient data on [place] Safe Act if patient pc involuntarily admitted or transferred for SI or HI ordered. 10:05 Confirm accurate psychiatric medication list and times of last dosage ordered. pc 10:05 Detain Pt Until Medically/PFS Cleared ordered. pc 10:06 Acetaminophen Level Ordered. EDMS 10:06 Basic Metabolic Profile Ordered. EDMS 10:06 Complete Blood Count Ordered. EDMS 10:06 Drug Eval Toxicology ED Only Ordered. EDMS 10:06 Ethyl Alcohol (ethanol) Ordered. EDMS 10:06 Liver Profile Ordered. EDMS 10:06 Salicylate Level Ordered. EDMS 10:06 Thyroid Stimulating Hormone Ordered. EDMS 10:14 Differential diagnosis: depression, suicidal ideation. Plan: labs, PFS eval. pc 10:27 Consult PFS/PSA/Ice Maker: Patient's case requires discussion with on-call mk4 Psychiatrist complete. 10:27 PSA/PFS to call Nursing Cone Machine Operator, to enter patient data on [facility] Safe Act if patient mk4 involuntarily admitted or transferred for SI or HI complete. 11:05 Financial registration complete. lg 11:11 Complete Blood Count Reviewed. pc 11:11 Drug Eval Toxicology ED Only Reviewed. pc 11:44 Acetaminophen Level Reviewed. pc 11:44 Basic Metabolic Profile Reviewed. pc 11:44 Salicylate Level Reviewed. pc 11:44 Ethyl Alcohol (ethanol) Reviewed. pc 11:44 Liver Profile Reviewed. pc 11:44 Thyroid Stimulating Hormone Reviewed. pc 11:52 REGULAR DIET PLASTIC BOOGIE+DIET ordered. EDMS 12:45 The patient has been medically cleared for psychiatric evaluation, admission and/or pc transfer. [place] Safe Act reporting: The patient poses a significant risk to self or others, and PSA/PFS has notified the Nursing Cone Machine Operator and he/she will complete the required clinical trial data manager. Data reviewed: old medical records, vital signs, nurses notes, lab test results. Test interpretation: LAB - all labs as ordered have been reviewed, interpreted and considered in the overall management of the clinical presentation;. The patient has been re-examined and re-evaluated. There is no appreciated change of the patient's symptoms at this time. Disposition: The historical points, examination findings, and any diagnostic results supporting the provided diagnosis, were discussed with the patient or legal guardian. The need for further work-up and/or treatment in the hospital was explained. 13:12 Admit to IM: ordered. EDMS 13:29 [facility] Payment Agreement was scanned into [employer] and attached to record. lg 13:33 [facility] Legal paperwork was scanned into [employer] and attached to record. wild Signatures: Dispatcher [employer] EDAK Lucas Williamson MD MD pc Sleeman, Kacey, RN RN kcs Michelson, Staci, RN RN srm Ganter, LoriLee, Reg Reg lg Adriana Weston, PSA PSA jfSuki Lozano RN RN mk4 The chart was reviewed and I authenticate all verbal orders and agree with the evaluation and treatment provided.Attachments: 13:29 [facility] Payment Agreement lg Chart Complete MTDD
--- NOTE | 2016-11-02 15:11 | EDDOCDS ---
Nurse's Notes [facility] Name: Pola Costello Age: 31 yrs Sex: Male : 1985 Arrival Date: 10/31/2016 Time: 09:48 Bed [facility] Private MD: NO PRIMARY PHYSICIAN, . Diagnosis: Major depressive disorder, recurrent, moderate;Suicidal ideations Presentation: 10/31 09:54 Presenting complaint: Patient states: suicidal ideation and " feeling lost " for about srm a week. resides at [facility]. denies OD or injuring self. Mental Health Triage Level: Level 2: The patient displays active suicidal ideations. Adult Sepsis Screening: The patient does not have new or worsening altered mentation. Patient's respiratory rate is less than 22. Systolic blood pressure is greater than 100. Patient has a qSOFA score of 0- Negative Sepsis Screen. Suicide/Homicide risk assessment- The patient admits to and/or has been reported to be having suicidal ideations. The patient reports that he/she has not been admitted to an inpatient mental health facility in the last 30 days. The patient reports that he/she does not have a recent or current history of substance abuse. The patient reports that he/she has no prior history of suicide attempt and/or organized plan. The patient reports that he/she has experienced a significant life altering event in the last 30 days. The patient reports that he/she has adequate social support. Status: Patient is not a billing customer service representative or dependent. Transition of care: patient was not received from another setting of care. 09:54 Acuity: DESIRAE Level 3 [facility] 09:54 Method Of Arrival: Walkin/Carried/Asstd [facility] Triage Assessment: 09:57 General: Appears in no apparent distress, Behavior is appropriate for age, cooperative. srm Pain: Denies pain. HIV screening NA for this visit Offered previously. Historical: - Allergies: no known allergies; - Home Meds: 1. adderall 20mg twice a day (Last dose: 10/31/2016 09:00) 2. clonazepam 1 mg Oral tab 1 tab 3 times per day (Last dose: 10/30/2016 09:00) 3. Seroquel 100 mg Oral tab nightly (Last dose: 10/30/2016 23:00) - PMHx: ADHD; Anxiety; - PSHx: none; - The history from nurses notes was reviewed: and I agree with what is documented. - Social history: Smoking status: Patient uses tobacco products, current every day smoker. No barriers to communication noted, The patient speaks fluent Guyanese, Speaks appropriately for age. - : The pt / caregiver states he / she is not on anticoagulants. Home medication list is obtained from the patient. - Hospitalizations: : No recent hospitalization is reported. - Exposure Risk Screening:: None identified. - Immunization history:: All immunizations up-to-date. - Family history: Not pertinent. - Social history:: the patient smokes cigarettes 2ppd the patient drinks alcohol. Screenin:47 Screening information is obtained from the patient. Fall risk: No risks identified. kcs Assistance ADL's: requires no assistance with activities of daily living. Abuse/DV Screen: The patient / caregiver reports he/she is: not in a situation that causes fear, pain or injury. Nutritional screening: No deficits noted. Advance Directives: Currently, there is no health care proxy. There is no living will. home support is adequate. Assessment: 10:28 General: Appears in no apparent distress, comfortable, Behavior is cooperative, sitting mk4 quietly with TLs worker , denies needs . Neurological: Level of Consciousness is awake, alert, Oriented to person, place, time. Respiratory: Airway is patent Respiratory effort is even, unlabored, Respiratory pattern is regular. 11:15 Reassessment: Patient standing in room - talking and smiling with TLS staff. Denies any kcs needs. Given coffee. Pleasant and cooperative. Respirations easy. Color = pink. Security observing.. 12:30 General: Patient eating lunch.. kcs 12:42 General: DEEPA Wilson talking with patient.. kcs 12:49 Reassessment: Patient now eating boxed lunch. Pleasant and cooperative. Security kcs observing.. 13:13 Reassessment: Patient still eating. Pleasant and cooperative. Good eye contact. Denies kcs any needs. Respirations easy. Color = pink. Security observing.. 14:08 Reassessment: Patient appears in no apparent distress at this time. Patient denies pain kcs at this time. General: Appears comfortable, well developed, well nourished, Behavior is cooperative, pleasant. Pain: Denies pain. Neurological: Level of Consciousness is awake, alert. Respiratory: Airway is patent Respiratory effort is even, unlabored, Respiratory pattern is regular, symmetrical. Derm: Skin is intact, is healthy with good turgor, Skin is dry, Skin is normal. Mental Health Eval: 12:52 Status: The patient is not a billing customer service representative or dependent. [facility] Behavioral Health: The patient is not an established patient of [facility] Behavioral Health. Referral Information: Evaluation referral is generated by the patient himself / herself. The patient was referred for evaluation because +SI. Subjective: The patients chief complaint is PT states that about 2 weeks ago his depression began to worsen and he started having SI. PT denies plan but states he would want it as pain free as possible. PT states he trouble focusing and concentrating and is having mood swings to include depressed to manic. "I don't feel safe with myself" PT states he wants to get help before he tries to hurt himself and cannot CFS. PT's TLS worker present and he states PT has been trying to manage his symptoms but today he asked to come to ED for admition.. Delusions are denied. Patient's mood is appropriate. Hallucinations are denied. Mental Health history: ADHD, anxiety, depression, sleep disturbance, suicide attempt by OD several years ago ideation currently Mental Health Admissions: Since 2009 PT has 4 admission-three to [facility] and one [facility]. Last admission was 05/2016 Current Outpatient Mental Health Services: Psychiatrist / Agency: [facility]. Therapist / Agency: [facility]. [facility] [facility] / Agency: [facility]. Current living environment is The patient currently lives in a [facility] apartment. Patient presents to Emergency Department with the following symptoms within the past 2 weeks: anxiety, depressed mood, labile mood, poor concentration, suicidal ideation with no plan. Substance abuse: Patient uses marijuana occasionally. Mental status exam: Patients appearance is appropriate, Patient's behavior is cooperative, Speech is normal. Affect is appropriate. Mood is appropriate. Hallucinations are denied. Appetite is normal. Memory is good. Energy level is normal. Content of thought is depressive. cannot CFS Thought process is intact. Cognitive level is oriented to person, place, time and situation Patient's insight is fair. Judgement is fair. Rapport with interviewer is good. Suicidal Ideation is present with no specific plan. Homicidal ideation is denied. Disposition: Medically cleared for disposition by Lucas Williamson MD Psychiatric Consult is performed by phone with Dr Idris Perez MD. [facility] Admission Criteria: The patient is experiencing suicidal ideation. The patient requires continuous observation and/or control to protect self, others or property. The patient's care requires a multi-modal treatment plan under close supervision and coordination due to the complexity and severity of the patient's symptoms. Legal Status: Patient's legal status will be Emergency admission: . [place] Safe Act: [place] Safe Act is not applicable because patient was registered less than 6 months ago. DSM-V Differential Diagnosis: Unspecified Depressive Disorder (F32.9). Awaiting: transfer to [facility]. 14:39 Insurance Pre-Certification: approved by: [facility]-#[id number] approved for the thru jfb the with UR on the with Belinda Perez [phone] [id number] . Vital Signs: 09:50 BP 171 / 93; Pulse 99; Resp 18; Temp 97.7(O); Pulse Ox 99% ; Weight 72.57 kg; Height 5 cmb ft. 5 in. (165.10 cm); Pain 0/10; 09:50 Body Mass Index 26.63 (72.57 kg, 165.10 cm) cmb Vitals: 09:50 Log In Time: October 31, 2016 at 09:45. cmb ED Course: 09:49 Patient visited by Amy Bruce. cmb 09:49 Patient moved to Waiting cmb 09:50 NO PRIMARY PHYSICIAN, . is Private Physician. cmb 09:51 RN notified that patient meets Red Flag criteria. cmb 09:55 Triage Initiated srm 09:58 Patient moved to [facility] srm 10:05 Lucas Williamson MD is Attending Physician. pc 10:07 Patient visited by Ish Blake. dpm 10:07 Pt greeted and oriented to ED. Patient advised of names of staff involved in care, dpm location of call peacock, wait times and NPO status. Patient has correct armband on for positive identification. Placed in gown. Placed in psych safe attire. Bed in low position. Side rails up X 1. Security observing. Property removed, inventory done, secured in belongings bag- placed in locked locker. Placed in locker 1. Psych Safety Check: Location: Psych Room. Visual Assessment: Cooperative. 10:16 Patient visited by Lucas Williamson MD. pc 10:26 Acetaminophen Level Sent. mk4 10:27 Basic Metabolic Profile Sent. mk4 10:27 Complete Blood Count Sent. mk4 10:27 Drug Eval Toxicology ED Only Sent. mk4 10:27 Ethyl Alcohol (ethanol) Sent. mk4 10:27 Liver Profile Sent. mk4 10:27 Salicylate Level Sent. mk4 10:27 Thyroid Stimulating Hormone Sent. mk4 10:31 Patient visited by Ish Blake. dpm 10:45 Patient visited by Ish Blake. dpm 11:00 Patient visited by Ish Blake. dpm 11:21 Patient visited by Ish Blake. dpm 11:29 Patient visited by Ish Blake. dpm 11:50 Patient visited by Ish Blake. dpm 12:04 Patient visited by Ish Blake. dpm 12:26 Patient visited by Ish Blake. dpm 12:42 Patient visited by Ish Blake. dpm 12:46 Idris Perez MD is Hospitalizing Provider. pc 12:47 The patient / caregiver is instructed regarding the plan of care and ED course. kcs 12:47 No IV's were initiated during this patient's visit. No procedures done that require kcs assistance. 13:22 Patient visited by Ish Blake. dpm 13:29 [facility] Payment Agreement was scanned into [employer] and attached to record. lg 13:33 E Legal paperwork was scanned into [employer] and attached to record. jfb 13:38 Patient visited by Ish Blake. dpm 13:54 Patient visited by Ish Blake. dpm 14:09 Patient visited by Ish Blake. dpm Attachments: 13:33 E Legal paperwork jfb Order Results: Lab Order: Acetaminophen Level; SPEC'M 10/31/16 10:16 Test: ACETAMINOPHEN LEVEL; Value: < 2.0; Range: 10.0-30.0; Abnormal: Below low normal; Units: UG/ML; Status: F Lab Order: Basic Metabolic Profile; SPEC'M 10/31/16 10:16 Test: GLUCOSE, FASTING; Value: 80; Range: 70-105; Units: MG/DL; Status: F Test: BLOOD UREA NITROGEN; Value: 6; Range: 7-18; Abnormal: Below low normal; Units: MG/DL; Status: F Test: CREATININE FOR GFR; Value: 0.93; Range: 0.70-1.30; Units: MG/DL; Status: F Test: GLOMERULAR FILTRATION RATE; Value: > 60.0; Range: >60; Status: F Test: SODIUM LEVEL; Value: 145; Range: 136-145; Units: MEQ/L; Status: F Test: POTASSIUM SERUM; Value: 3.5; Range: 3.5-5.1; Units: MEQ/L; Status: F Test: CHLORIDE LEVEL; Value: 105; Range: 98-107; Units: MEQ/L; Status: F Test: CARBON DIOXIDE LEVEL; Value: 31; Range: 21-32; Units: MEQ/L; Status: F Test: ANION GAP; Value: 9; Range: 8-16; Units: MEQ/L; Status: F Test: CALCIUM LEVEL; Value: 8.5; Range: 8.5-10.1; Units: MG/DL; Status: F Test Note: ; Units are mL/min/1.73 m2 Chronic Kidney Disease Staging per NKF: Stage I & II GFR >=60 Normal to Mildly Decreased Stage III GFR 30-59 Moderately Decreased Stage IV GFR 15-29 Severely Decreased Stage V GFR <15 Very Little GFR Left ESRD GFR <15 on TRANSCRIPT EVALUATOR Lab Order: Complete Blood Count; SPEC'M 10/31/16 10:16 Test: WHITE BLOOD COUNT; Value: 11.2; Range: 4.0-10.0; Abnormal: Above high normal; Units: K/mm3; Status: F Test: RED BLOOD COUNT; Value: 4.81; Range: 4.30-6.10; Units: M/mm3; Status: F Test: HEMOGLOBIN; Value: 14.7; Range: 14.0-18.0; Units: g/dl; Status: F Test: HEMATOCRIT; Value: 44.5; Range: 42.0-52.0; Units: %; Status: F Test: MEAN CORPUSCULAR VOLUME; Value: 92.6; Range: 80.0-96.0; Units: fl; Status: F Test: MEAN CORPUSCULAR HEMOGLOBIN; Value: 30.6; Range: 27.0-33.0; Units: pg; Status: F Test: MEAN CORPUSCULAR HGB CONC; Value: 33.1; Range: 32.0-36.5; Units: g/dl; Status: F Test: RED CELL DISTRIBUTION WIDTH; Value: 13.5; Range: 11.5-14.5; Units: %; Status: F Test: PLATELET COUNT, AUTOMATED; Value: 252; Range: 150-450; Units: k/mm3; Status: F Lab Order: Drug Eval Toxicology ED Only; SPEC'M 10/31/16 10:16 Test: AMPHETAMINES LEVEL URINE; Value: NEGATIVE; Range: NEGATIVE; Status: F Test: BARBITURATES URINE; Value: NEGATIVE; Range: NEGATIVE; Status: F Test: BENZODIAZEPINES URINE; Value: NEGATIVE; Range: NEGATIVE; Status: F Test: CANNABINOIDS URINE; Value: POSITIVE; Range: NEGATIVE; Abnormal: Above high normal; Status: F Test: COCAINE METABOLITE URINE; Value: NEGATIVE; Range: NEGATIVE; Status: F Test: METHADONE URINE; Value: NEGATIVE; Range: NEGATIVE; Status: F Test: OPIATES URINE; Value: NEGATIVE; Range: NEGATIVE; Status: F Test: TRICYCLIC ANTIDEPRESS URINE; Value: NEGATIVE; Range: NEGATIVE; Status: F Test Note: ; FALSE POSITIVE RESULTS CAN BE CAUSED BY THE USE OF PANTOPRAZOLE (PROTONIX). Lab Order: Ethyl Alcohol (ethanol); SPEC'M 10/31/16 10:16 Test: ETHYL ALCOHOL (ETHANOL); Value: < 0.003; Range: 0.000-0.010; Units: %; Status: F Lab Order: Liver Profile; SPEC'M 10/31/16 10:16 Test: AST/SGOT; Value: 16; Range: 15-37; Units: U/L; Status: F Test: ALT/SGPT; Value: 26; Range: 12-78; Units: U/L; Status: F Test: ALKALINE PHOSPHATASE; Value: 66; Range: 45-117; Units: U/L; Status: F Test: BILIRUBIN,TOTAL; Value: 0.3; Range: 0.2-1.0; Units: MG/DL; Status: F Test: BILIRUBIN,DIRECT; Value: 0.1; Range: 0.0-0.2; Units: MG/DL; Status: F Test: TOTAL PROTEIN; Value: 7.3; Range: 6.4-8.2; Units: GM/DL; Status: F Test: ALBUMIN; Value: 4.1; Range: 3.2-5.2; Units: GM/DL; Status: F Test: ALBUMIN/GLOBULIN RATIO; Value: 1.28; Range: 1.00-1.93; Status: F Lab Order: Salicylate Level; SPEC'M 10/31/16 10:16 Test: SALICYLATE LEVEL; Value: 2.8; Range: 5.0-30.0; Abnormal: Below low normal; Units: MG/DL; Status: F Lab Order: Thyroid Stimulating Hormone; SPEC'M 10/31/16 10:16 Test: THYROID STIMULATING HORMONE; Value: 2.630; Range: 0.358-3.740; Units: uIU/ML; Status: F Outcome: 12:46 Decision to Hospitalize by Provider. pc 14:08 Discharge Assessment: Patient awake, alert and oriented x 3. No cognitive and/or kcs functional deficits noted. Patient verbalized understanding of disposition instructions. Patient awake and alert. patient administered narcotics - no. The following High Risk Discharge criteria are identified: Yes, patient has been evaluated by PSA.. Admitted to Psych accompanied by tech, via wheelchair, with chart. Condition: stable. No special radiology studies were completed. Property :Personal belongings accompany Pt. 14:10 Patient left the ED. kcs Signatures: Lucas Williamson MD MD pc Sleeman, Kacey RN RN Chantel Hector RN RN [facility] Hugh Chino, Adriana Villalpando lg, PSA PSA Ish Clemente dpm, Chelsea cmb King, Margaret, RN RN mk4 Corrections: (The following items were deleted from the chart) 11:17 11:15 Reassessment: Patient standing in room - talking and smiling with TLS staff. kcs Denies any needs. Given coffee. Pleasant and cooperative. Respirations easy. Color = pink.. kcs 13:18 12:52 Mental Health history: ADHD, anxiety, depression, sleep disturbance, suicide jfb attempt by OD several years ago ideation currently Mental Health Admissions: Since 2009 PT has 4 admission-three to [facility] and one [facility]. Last admission was 05/2016 Current Outpatient Mental Health Services: Psychiatrist / Agency: [facility]. Therapist / Agency: [facility] Marie [employer] Col[employer] Baster / Agency: [facility]. Current living environment is The patient currently lives in a [facility] apartment. jfb Chart Complete MTDD
--- NOTE | 2016-11-02 16:04 | IPNPDOC ---
[facility] Progress Note Progress Note DATE OF SERVICE: 11/02/16 HISTORY: Assessment completed with patient today to evaluate treatment response on inpatient unit. Patient is observed to be visible in milieu, socializing with peers, attending groups, and cooperative with staff. Patient reiterates today prior to hospitalization he had been "not feeling like myself, feeling lost, depressed, feeling useless," and adds today, "I still feel like it would be okay if I just wasn't here." Patient reports 5/10 anxiety, 5/10 depression, endorses passive suicidal ideation, denies plan or intent, denies audiovisual hallucinations, and denies urge to engage in self-injurious behavior. Patient denies symptoms of mood lability. Patient indicates she did not sleep well last night, reports experiencing one nightmare, was reminded he has PRN medication available to him for insomnia if desired. Patient denies impulsivity, and physical pain. Patient reiterates today that he does not have medication at home and [facility] has his medication and manages his medications for him and, when ready, plans to return to [facility] apartment upon discharge from hospital. Patient had been meeting with medication prescriber 1 time per month through [facility] and was participating in psychotherapy every 2 weeks on an outpatient basis. Patient has also been working with a [facility] industrial cleaning technician, Theodore, whom patient describes as "awesome." Patient denies challenges with energy level and concentration, indicates appetite is stabilizing. VITAL SIGNS: Please see below. NEW TEST RESULTS: No new results. Labs completed on admission indicated low BUN and elevated WBCs, leukocytosis, patient was afebrile and asymptomatic, PA is monitoring and reran labs 11/02/16 WBC's within normal limits. UDS positive for cannabinoids on admission. CURRENT MEDICATIONS: See below. MENTAL STATUS EXAMINATION: Patient is a 31 year old male who is pleasant, cooperative, easily engaged, displays fair personal hygiene, dressed in hospital clothing, makes good eye contact, is somewhat childlike in interactional style, appears younger than stated age. Speech: Is of normal rate, rhythm, volume, coherent, spontaneous Thought processes: Clear, goal-directed Rate of thoughts: Normal. Thought content: Logical, rational. Abstract reasoning: Peers intact Associations: Intact Abnormal or psychotic thoughts: denies hallucinations, Delusions, Preoccupation with violence, Homicidal or suicidal ideation, and Obsessions. Judgment: Limited Insight: Limited Oriented to: Time, place and person. Recent and Remote Memory: Intact. Attention Span and Concentration: Fair. Language: Normal. Fund of knowledge: Adequate Mood: "I'm feeling pretty good, just still a little depressed." Appears mildly depressed and anxious at times, stable, no lability noted Affect: Full range, brightens at times DIAGNOSES: MDD, recurrent, moderate, ADHD by report, rule out elle, rule out cannabis use disorder, rule out alcohol use disorder, rule out borderline intellectual functioning ASSESSMENT: Patient is 31-year-old male who resides in [facility] housing who is been admitted for inpatient treatment secondary to recent exacerbation in symptoms of anxiety and depression with passive suicidal ideation. Patient remains pleasant and cooperative, has been participating in unit programming, and is easily engaged. Patient appears to be responding positively to influence of inpatient psychiatric environment, continues to express vague passive suicidal ideation, indicates current medication regimen, which is managed by [facility], remains effective. Patient denies need for changes to medication regimen at this time, denies medication side effects. Patient reports notable difficulty with sleep, was reminded he has PRN medication available to him to address symptoms of insomnia. Patient is currently unable to contract for safety were he to be discharged from hospital and continues to report moderate levels of anxiety and depression. Patient states unit programming, staff, and groups are "very helpful," indicates inpatient treatment is helping him to improve coping mechanisms. Will continue to monitor patient's response to current medication regimen consisting of Seroquel 100 mg po hs, Adderall 20 mg p at 09:00 and 13:00 , Klonopin 1 mg TID PRN for anxiety, and Seroquel 50 mg po hs PRN insomnia. Patient was again encouraged to limit benzodiazepine use and to attempt to develop alternative strategies for coping with symptoms of anxiety, declines hydroxyzine trial, but agrees to consider. Will also continue to monitor patient in the inpatient environment for symptom stabilization, resolution of suicidal ideation, and discharge readiness back to [facility] living environment. Patient is aware group sales coordinator is attempting to arrange meeting with [facility] to devise safe discharge plan for patient. MANAGEMENT PLAN: Continue current medication regimen of Seroquel 100 mg po hs, Adderall 20 mg p at 09:00 and 13:00, Klonopin 1 mg TID PRN for anxiety, and Seroquel 50 mg po hs PRN insomnia, monitor for medication side effects and need for dosing/medication changes. Maintain safety precautions Patient to attend groups and participate in unit programming to develop coping strategies Engage patient in discharge planning process and arrange meeting with [facility] providers to ensure safe discharge planning when appropriate Patient to follow up with PCM upon discharge Vital Signs/I&O Vital Signs Date Time Temp Pulse Resp B/P Pulse Ox O2 Delivery O2 Flow Rate FiO2 11/02/16 06:41 97.6 100 18 139/84 10/31/16 15:03 96 Room Air Laboratory Data CBC/BMP Laboratory Tests 11/02/16 06:32 Red Blood Count 4.74, Mean Corpuscular Volume 91.2, Mean Corpuscular Hemoglobin 31.2, Mean Corpuscular Hemoglobin Concent 34.2, Red Cell Distribution Width 12.6 Current Medications Current Medications Al Hydrox/Mg Hydrox/Simethicone (Mylanta) 30 ml Q4HP PRN PO HEARTBURN/ INDIGESTION; Start 10/31/16 at 16:45; Stop 11/30/16 at 16:44 Amphetamine/ Dextroamphetamine (Adderall) 20 mg BID@09,13 PO Last administered on 11/02/16 13:13; Start 11/01/16 at 09:00; Stop 11/08/16 at 08:59 Clonazepam (KlonoPIN) 1 mg TIDP PRN PO ANXIETY Last administered on 11/01/16 20:47; Start 10/31/16 at 16:45; Stop 11/07/16 at 16:44 Home Med (Med Rec Complete!) ASDIRECTED XX ; Start 10/31/16 at 13:15; Stop at 13:15; Status DC Home Med (Med Rec Complete!) ASDIRECTED XX ; Start 10/31/16 at 17:15; Stop at 17:15; Status DC Ibuprofen (Advil) 600 mg Q6HP PRN PO PAIN Last administered on 11/02/16t 11:57 ; Start 10/31/16 at 16:45; Stop 11/30/16 at 16:44 Magnesium Hydroxide (Milk Of Magnesia) 30 ml DAILYPRN PRN PO CONSTIPATION; Start 10/31/16 at 16:45; Stop 11/30/16 at 16:44 Nicotine (Nicoderm Cq 21mg) 1 patch DAILY TD Last administered on 11/02/16 08: 30; Start 11/01/16 at 09:00; Stop 12/01/16 at 08:59 Quetiapine Fumarate (SEROquel) 50 mg QHS PRN PO INSOMNIA; Start 10/31/16 at 16: 45; Stop 11/30/16 at 16:44 Quetiapine Fumarate (SEROquel) 100 mg QHS PO Last administered on 11/01/16 20: 47; Start 10/31/16 at 21:00; Stop 11/30/16 at 20:59 Allergies Coded Allergies: No Known Drug Allergy (Verified Allergy, Unknown, 01/20/13) Concetta Adam Nov 02, 2016 16:04
[2016-11-02 18:00] VITALS: BP 134/86
[2016-11-02] MEDS: clonazePAM 1 MG TAB PO PRN (20:46)
[2016-11-02] MEDS: QUEtiapine FUMARATE 100 MG TAB PO SCH (20:46)
[2016-11-03 06:41] VITALS: BP 142/79
[2016-11-03] MEDS: NICOTINE 21MG/24HR 1 EA TRANSDERMAL TD SCH (07:59)
[2016-11-03] MEDS: ADDERALL 5 MG TAB PO SCH ×2 (07:59→13:19)
[2016-11-03] MEDS: IBUPROFEN 400 MG TAB PO PRN (14:32)
[2016-11-03] MEDS: clonazePAM 1 MG TAB PO PRN ×2 (17:31→23:36)
[2016-11-03 18:15] VITALS: BP 138/77
--- NOTE | 2016-11-03 20:46 | IPNPDOC ---
[facility] Progress Note Progress Note DATE OF SERVICE: 11/03/16 HISTORY: [employer] H[employer] Instructor met with patient on inpatient unit to assess treatment progress. Patient is observed to be visible in milieu, socializing with peers, attending groups, cooperative with staff, sometimes reading quietly in room between groups.. Patient reports current anxiety level of 5/10, depression 3/10 , reiterates passive suicidal ideation involving "feeling lost and not feeling safe, feeling useless," denies plan or intent to harm self but is unable to contract for safety if discharged. Patient denies audiovisual hallucinations and denies urge to engage in self-injurious behavior. Patient denies symptoms of mood lability and impulsivity. Patient reports improved sleep last night, denies nightmares symptoms, remains aware that he has PRN medication available to him for insomnia if desired. Patient and comic book writer spoke at length today regarding patient's intermittent symptoms of anxiety, afternoon stimulant dosing , and use of benzodiazepine at night apparently for sleep. Patient was encouraged to reduce and work toward cessation of benzo, was again coached on the risks of regular benzo use, and was encouraged to trial medication currently available to him for sleep. Since being in hospital patient has taken benzo 1 time per day, informs comic book writer that when not in hospital he takes 2-3 times per day and his outpatient prescriber is familiar and comfortable with his use. Patient indicates he will not be needing ascription's for benzo or stimulant at time of discharge as these medications are made available to him on a routine basis by his [facility] provider, reiterates [facility] manages his meds and provides them to him on a weekly basis. Patient denies challenges with energy level and concentration, indicates appetite is stabilizing, and he denies physical pain. Patient has been working with a [facility] instrument lens grinder, lives in a [facility] apartment, receives outpatient psychotherapy and medication management services , and informs comic book writer plan remains to return to [facility] upon discharge. Addendum: I-stop review completed and patient's report of medication prescriptions and use is consistent with I-stop record. VITAL SIGNS: Please see below. NEW TEST RESULTS: No new results. Labs completed on admission indicated low BUN and elevated WBCs, leukocytosis, patient was afebrile and asymptomatic, PA is monitoring and reran labs 11/02/16 WBC's within normal limits. UDS positive for cannabinoids on admission. CURRENT MEDICATIONS: See below. MENTAL STATUS EXAMINATION: Patient is a 31 year old male who is pleasant, cooperative, easily engaged, displays fair personal hygiene, dressed in hospital clothing, makes good eye contact, is somewhat childlike in interactional style, appears younger than stated age. Speech: Is of normal rate, rhythm, volume, coherent, spontaneous Thought processes: Clear, goal-directed Rate of thoughts: Normal. Thought content: Logical, rational. Abstract reasoning: Peers intact Associations: Intact Abnormal or psychotic thoughts: denies hallucinations, Delusions, Preoccupation with violence, Homicidal or suicidal ideation, and Obsessions. Judgment: Limited Insight: Limited Oriented to: Time, place and person. Recent and Remote Memory: Intact. Attention Span and Concentration: Fair. Language: Normal. Fund of knowledge: Adequate Mood: "I'm feeling ok, down sometimes but starting to feel a little better." Appears depressed and anxious at times, stable, no lability noted Affect: Full range, brightens less today DIAGNOSES: MDD, recurrent, moderate, ADHD by report, rule out elle, rule out cannabis use disorder, rule out alcohol use disorder, rule out borderline intellectual functioning ASSESSMENT: Patient is 31-year-old male who resides in [facility] housing who is been admitted for inpatient treatment secondary to recent exacerbation in symptoms of anxiety and depression with passive suicidal ideation. Patient remains pleasant and cooperative, has been participating in unit programming, and is easily engaged. Patient appears to be responding positively to influence of inpatient psychiatric milieu, continues to express vague passive suicidal ideation, indicates current medication regimen, which is managed by [facility], remains effective. Patient denies need for changes to medication regimen at this time, denies medication side effects. Patient is aware he has PRN medication available to him to address sleep challenges if needed. Patient is currently unable to contract for safety were he to be discharged from hospital and continues to report moderate levels of anxiety and depression. Will continue to monitor patient's response to current medication regimen consisting of Seroquel 100 mg po hs, Adderall 20 mg p at 09:00 and 13:00, Klonopin 1 mg TID PRN for anxiety, and Seroquel 50 mg po hs PRN insomnia. Patient was again encouraged to limit benzodiazepine use, consider reduction to afternoon Adderall dose, and to attempt to develop alternative strategies for coping with symptoms of anxiety and sleep challenges, again declines hydroxyzine trial, but agrees to consider. Will also continue to monitor patient in the inpatient environment for symptom stabilization, resolution of suicidal ideation, and discharge readiness back to [facility] living environment. Patient is aware environment coordinator is attempting to arrange meeting with [facility] to devise safe discharge plan for patient for early next week. MANAGEMENT PLAN: Continue current medication regimen of Seroquel 100 mg po hs, Adderall 20 mg p at 09:00 and 13:00, Klonopin 1 mg TID PRN for anxiety, and Seroquel 50 mg po hs PRN insomnia, monitor for medication side effects and need for dosing/medication changes. Maintain safety precautions Patient to attend groups and participate in unit programming to develop coping strategies Engage patient in discharge planning process and arrange meeting with [facility] providers to ensure safe discharge planning when appropriate Patient to follow up with PCM upon discharge Vital Signs/I&O Vital Signs Date Time Temp Pulse Resp B/P Pulse Ox O2 Delivery O2 Flow Rate FiO2 11/03/16 18:15 97.2 85 16 138/77 10/31/16 15:03 96 Room Air Current Medications Current Medications Al Hydrox/Mg Hydrox/Simethicone (Mylanta) 30 ml Q4HP PRN PO HEARTBURN/ INDIGESTION; Start 10/31/16 at 16:45; Stop 11/30/16 at 16:44 Amphetamine/ Dextroamphetamine (Adderall) 20 mg BID@09,13 PO Last administered on 11/03/16 13:19; Start 11/01/16 at 09:00; Stop 11/08/16 at 08:59 Clonazepam (KlonoPIN) 1 mg TIDP PRN PO ANXIETY Last administered on 11/03/16 17:31; Start 10/31/16 at 16:45; Stop 11/07/16 at 16:44 Home Med (Med Rec Complete!) ASDIRECTED XX ; Start 10/31/16 at 13:15; Stop at 13:15; Status DC Home Med (Med Rec Complete!) ASDIRECTED XX ; Start 10/31/16 at 17:15; Stop at 17:15; Status DC Ibuprofen (Advil) 600 mg Q6HP PRN PO PAIN Last administered on 11/03/16 14:32 ; Start 10/31/16 at 16:45; Stop 11/30/16 at 16:44 Magnesium Hydroxide (Milk Of Magnesia) 30 ml DAILYPRN PRN PO CONSTIPATION; Start 10/31/16 at 16:45; Stop 11/30/16 at 16:44 Nicotine (Nicoderm Cq 21mg) 1 patch DAILY TD Last administered on 11/03/16 07: 59; Start 11/01/16 at 09:00; Stop 12/01/16 at 08:59 Quetiapine Fumarate (SEROquel) 50 mg QHS PRN PO INSOMNIA; Start 10/31/16 at 16: 45; Stop 11/30/16 at 16:44 Quetiapine Fumarate (SEROquel) 100 mg QHS PO Last administered on 11/02/16 20: 46; Start 10/31/16 at 21:00; Stop 11/30/16 at 20:59 Allergies Coded Allergies: No Known Drug Allergy (Verified Allergy, Unknown, 01/20/13) Concetta Adam Nov 03, 2016 20:46
[2016-11-03] MEDS: QUEtiapine FUMARATE 100 MG TAB PO SCH (23:34)
[2016-11-04 06:36] VITALS: BP 126/66
[2016-11-04] MEDS: ADDERALL 5 MG TAB PO SCH ×2 (08:39→13:34)
[2016-11-04] MEDS: NICOTINE 21MG/24HR 1 EA TRANSDERMAL TD SCH (08:39)
[2016-11-04 18:00] VITALS: BP 146/84
[2016-11-04] MEDS: IBUPROFEN 400 MG TAB PO PRN (19:54)
[2016-11-04] MEDS: QUEtiapine FUMARATE 100 MG TAB PO SCH (23:58)
[2016-11-05 06:17] VITALS: BP 119/65
[2016-11-05] MEDS: ADDERALL 5 MG TAB PO SCH ×2 (08:22→13:18)
[2016-11-05] MEDS: NICOTINE 21MG/24HR 1 EA TRANSDERMAL TD SCH (08:23)
--- NOTE | 2016-11-05 08:40 | IPN ---
DATE OF SERVICE: 11/04/2016 SUBJECTIVE: "I am feeling much better. I hope I can go home soon." OBJECTIVE: The patient is improving slowly. He is less depressed. He wants to contract for safety during the interview. No evidence of psychotic symptoms. Denies side effects from the medication. MENTAL STATUS EXAMINATION: The patient is dressed in [facility]. Calm. Cooperative. Fair eye contact. Speech is normal in rate and volume. Articulation is coherent and spontaneous. Mood is depressed and anxious but improving. Affect is congruent with mood. No evidence of delusions or hallucination. Short- and long-term memory are fair. The patient is fully oriented. Associations are intact. Thinking is logical. Thought content is appropriate. The patient is able to contract for safety and denies suicidal or homicidal ideation during the interview. Insight and judgment is fair. ASSESSMENT: 1. Major depressive disorder, recurrent, moderate. 2. Attention deficit hyperactivity disorder (ADHD) by report. 3. Tetrahydrocannabinol (THC) abuse. 4. Rule out borderline intellectual functioning. PLAN: 1. Continue with Seroquel 100 mg by mouth nightly. 2. Continue with clonazepam 1 mg three times a day as needed for anxiety. 3. Continue medication management, individual and group therapy.
[2016-11-05] MEDS: clonazePAM 1 MG TAB PO PRN ×2 (17:21→22:41)
[2016-11-05 18:00] VITALS: BP 143/83
[2016-11-05] MEDS: QUEtiapine FUMARATE 100 MG TAB PO SCH (22:41)
[2016-11-06 06:40] VITALS: BP 124/80
[2016-11-06] MEDS: NICOTINE 21MG/24HR 1 EA TRANSDERMAL TD SCH (08:10)
[2016-11-06] MEDS: ADDERALL 5 MG TAB PO SCH ×2 (08:11→12:50)
[2016-11-06 18:00] VITALS: BP 144/85
[2016-11-06] MEDS: QUEtiapine FUMARATE 100 MG TAB PO SCH (22:46)
--- NOTE | 2016-11-07 01:10 | IPNPDOC ---
[facility] Progress Note Progress Note DATE OF SERVICE: 11/06/16 SUBJECTIVE: Patient reports ongoing daily mood improvement. He reports fair sleep and appetite. Patient reports feeling comfortable with discharge to home tomorrow. He currently denies SI/HI and AH/VH. No med s/e reported. MENTAL STATUS EXAMINATION: The patient is dressed in home clothing, in NAD. speech: spontaneous, RRR. Mood is anxious. Affect is anxious. No evidence of delusions or hallucinations. Short and long-term memory are intact. Patient is alert and oriented. Associations are intact. Thinking is logical. Thought content is appropriate. The patient is denying suicidal or homicidal ideations during the interview. Insight and judgment is limited. ASSESSMENT: 1. Depressive d/o, unspecified 2. ADHD PLAN: - Continue current psychotropic medication regimen. - Continue medical management, individual and group therapy. - Patient tentative discharge scheduled tomorrow. Vital Signs/I&O Vital Signs Date Time Temp Pulse Resp B/P Pulse Ox O2 Delivery O2 Flow Rate FiO2 11/06/16 18:00 97.9 130 16 144/85 Current Medications Current Medications Al Hydrox/Mg Hydrox/Simethicone (Mylanta) 30 ml Q4HP PRN PO HEARTBURN/ INDIGESTION; Start 10/31/16 at 16:45; Stop 11/30/16 at 16:44 Amphetamine/ Dextroamphetamine (Adderall) 20 mg BID@09,13 PO Last administered on 11/06/16 12:50; Start 11/01/16 at 09:00; Stop 11/08/16 at 08:59 Clonazepam (KlonoPIN) 1 mg TIDP PRN PO ANXIETY Last administered on 11/05/16 22:41; Start 10/31/16 at 16:45; Stop 11/13/16 at 16:44 Home Med (Med Rec Complete!) ASDIRECTED XX ; Start 10/31/16 at 13:15; Stop at 13:15; Status DC Home Med (Med Rec Complete!) ASDIRECTED XX ; Start 10/31/16 at 17:15; Stop at 17:15; Status DC Ibuprofen (Advil) 600 mg Q6HP PRN PO PAIN Last administered on 11/04/16 19:54 ; Start 10/31/16 at 16:45; Stop 11/30/16 at 16:44 Magnesium Hydroxide (Milk Of Magnesia) 30 ml DAILYPRN PRN PO CONSTIPATION; Start 10/31/16 at 16:45; Stop 11/30/16 at 16:44 Nicotine (Nicoderm Cq 21mg) 1 patch DAILY TD Last administered on 11/06/16 08: 10; Start 11/01/16 at 09:00; Stop 12/01/16 at 08:59 Quetiapine Fumarate (SEROquel) 50 mg QHS PRN PO INSOMNIA; Start 10/31/16 at 16: 45; Stop 11/30/16 at 16:44 Quetiapine Fumarate (SEROquel) 100 mg QHS PO Last administered on 11/06/16 22: 46; Start 10/31/16 at 21:00; Stop 11/30/16 at 20:59 Allergies Coded Allergies: No Known Drug Allergy (Verified Allergy, Unknown, 01/20/13) ANGELITO DAVENPORT MD Nov 07, 2016 01:10
[2016-11-07 06:26] VITALS: BP 105/61
[2016-11-07] MEDS ORDERED: NICO21PAT TD (08:33)
[2016-11-07] MEDS: NICOTINE 21MG/24HR 1 EA TRANSDERMAL TD SCH (09:00)
[2016-11-07] MEDS: ADDERALL 5 MG TAB PO SCH (10:20)
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
== END 2016-11-07 12:20 | disposition home or self-care (01) | DRG 751 ==
LOC: M ED 09:48 → M PSY 14:17
PROVIDERS: ADMIT Psychiatry & Neurology Psychiatry; ATTEND Psychiatry & Neurology Psychiatry
DX: F33.1 Major depressive disorder, recurrent, moderate (principal); F41.1 Generalized anxiety disorder; F10.10 Alcohol abuse, uncomplicated; F12.10 Cannabis abuse, uncomplicated; G47.00 Insomnia, unspecified; R41.83 Borderline intellectual functioning; F17.210 Nicotine dependence, cigarettes, uncomplicated; Z79.899 Other long term (current) drug therapy

== ENCOUNTER 2016-12-15 12:56 | Emergency (ER) | payer OTHER ==
[~2016-12-15] VITALS: Ht 165.1 cm; Wt 68.0 kg
[~2016-12-15 12:56] MED LIST changes: +AMPH20CA PO; +NICO21PAT TD
[2016-12-15 15:03] VITALS: BP 134/81
== END 2016-12-15 15:34 | disposition home or self-care (01) ==
LOC: M ED 15:03
DX: F15.20 Other stimulant dependence, uncomplicated (principal); F41.9 Anxiety disorder, unspecified; F32.9 Major depressive disorder, single episode, unspecified; I10 Essential (primary) hypertension; F17.200 Nicotine dependence, unspecified, uncomplicated

== ENCOUNTER 2017-03-15 01:32 | Inpatient (IN) | payer OTHER ==
[~2017-03-15] VITALS: Ht 162.6 cm; Wt 69.8 kg
[2017-03-15 02:45] LABS: MEAN CORPUSCULAR HEMOGLOBIN 31.3 pg (27.0-33.0); MEAN CORPUSCULAR HGB CONC 33.8 g/dl (32.0-36.5); MEAN CORPUSCULAR VOLUME 92.4 fl (80.0-96.0); RED CELL DISTRIBUTION WIDTH 12.9 % (11.5-14.5); WHITE BLOOD COUNT 8.8 K/mm3 (4.0-10.0)
[2017-03-15 03:00] LABS: METHADONE URINE NEGATIVE (NEGATIVE)
[2017-03-15 03:07] LABS: ALBUMIN/GLOBULIN RATIO 1.21 (1.00-1.93); ALKALINE PHOSPHATASE 69 U/L (45-117); ALT/SGPT 34 U/L (12-78); ANION GAP 6 MEQ/L (8-16); AST/SGOT 15 U/L (15-37); BILIRUBIN,DIRECT < 0.1 MG/DL (0.0-0.2); BILIRUBIN,TOTAL 0.2 MG/DL (0.2-1.0); BLOOD UREA NITROGEN 8 MG/DL (7-18); CARBON DIOXIDE LEVEL 32 MEQ/L (21-32); CHLORIDE LEVEL 105 MEQ/L (98-107); CREATININE FOR GFR 0.73 MG/DL (0.70-1.30); GLOMERULAR FILTRATION RATE > 60.0 (>60); GLUCOSE, FASTING 88 MG/DL (70-105); POTASSIUM SERUM 3.6 MEQ/L (3.5-5.1); SODIUM LEVEL 143 MEQ/L (136-145); TOTAL PROTEIN 7.3 GM/DL (6.4-8.2)
[2017-03-15] MEDS ORDERED: traZODone 50 MG TAB PO PRN (03:30)
[2017-03-15] MEDS ORDERED: MOM 30ML SUSPENSION UDC PO PRN (03:30)
[2017-03-15] MEDS ORDERED: ACETAMINOPHEN TAB 650MG DOSE (2X325MG) PO PRN (03:30)
[2017-03-15] MEDS ORDERED: LORazepam 1 MG TAB PO PRN (03:30)
[2017-03-15] MEDS ORDERED: MAALOX 30 ML SUSP *UDC PO PRN (03:30)
[2017-03-15] MEDS ORDERED: ADDE5TAB5 PO (03:40)
[2017-03-15 04:55] VITALS: BP 138/90
[2017-03-15] MEDS: CHLORHEXIDINE GLUCONATE 0.12 % 15ML UDC (PERIDEX ORAL RINSE) SSP SCH ×4 (09:00→22:12)
[2017-03-15] MEDS: VENLAFAXINE **XR** 37.5 MG CAPSULE PO SCH (09:00)
[2017-03-15] MEDS ORDERED: hydrOXYzine 25 MG TAB PO PRN (09:30)
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
[2017-03-15 18:00] VITALS: BP 132/93
[2017-03-15] MEDS: NICOTINE 21MG/24HR 1 EA TRANSDERMAL TD SCH (18:05)
[2017-03-15 19:24] LABS: METHADONE URINE NEGATIVE (NEGATIVE)
[2017-03-15] MEDS: QUEtiapine FUMARATE 100 MG TAB PO SCH (22:11)
[2017-03-16] MEDS: IBUPROFEN 400 MG TAB PO PRN (05:25)
[2017-03-16 06:00] VITALS: BP 142/100
[2017-03-16] MEDS: CHLORHEXIDINE GLUCONATE 0.12 % 15ML UDC (PERIDEX ORAL RINSE) SSP SCH ×3 (09:00→22:59)
[2017-03-16] MEDS ORDERED: NICOTINE 21MG/24HR 1 EA TRANSDERMAL TD SCH (09:00)
[2017-03-16] MEDS: VENLAFAXINE **XR** 37.5 MG CAPSULE PO SCH (09:11)
[2017-03-16] MEDS: NICOTINE 21MG/24HR 1 EA TRANSDERMAL TD SCH (09:11)
[2017-03-16 18:00] VITALS: BP 140/86
--- NOTE | 2017-03-16 20:26 | IPN ---
DATE: 03/16/2017 A 31-year-old male with history of depression, unspecified, personality disorder, was admitted with exacerbation of depressive symptoms and suicidal ideation. SUBJECTIVE: "I'm feeling about the same." OBJECTIVE: No major changes from yesterday at admission. The patient is depressed. Reports intermittent suicidal thoughts. Facial expression is restricted. Has psychomotor retardation. The patient denies side effects from the medication. He slept well with the help of the medication. No evidence of psychotic features. MENTAL STATUS EXAMINATION: The patient is dressed in [facility]. The patient is cooperative during exam. Poor eye contact. Speech is slow and monotone. Mood is depressed and anxious. Affect is restricted. No evidence of delusions or hallucinations. Memory, attention and concentration are fair. The patient is able to contract for safety during the interview. Insight and judgment is limited. ASSESSMENT: 1. Depression. 2. Suicidal ideation. PLAN: 1. Increase Effexor XR to 75 mg by mouth every morning. 2. Continue with Seroquel 100 mg by mouth nightly. 3. Continue close observation. 4. Continue medication management, individual and group therapy.
[2017-03-16] MEDS: QUEtiapine FUMARATE 100 MG TAB PO SCH (22:59)
[2017-03-17 06:07] VITALS: BP 137/88
[2017-03-17] MEDS: VENLAFAXINE **XR** 75MG CAPSULE PO SCH (09:35)
[2017-03-17] MEDS: CHLORHEXIDINE GLUCONATE 0.12 % 15ML UDC (PERIDEX ORAL RINSE) SSP SCH ×3 (09:36→23:34)
[2017-03-17] MEDS: NICOTINE 21MG/24HR 1 EA TRANSDERMAL TD SCH (09:36)
[2017-03-17] MEDS: IBUPROFEN 400 MG TAB PO PRN (11:53)
[2017-03-17 18:15] VITALS: BP 130/79
[2017-03-17] MEDS: QUEtiapine FUMARATE 100 MG TAB PO SCH (23:34)
--- NOTE | 2017-03-18 03:17 | IPN ---
DATE OF SERVICE: 03/17/2017 The patient today states that he is still feeling pretty depressed, but he is denying suicidal ideations. He was still sleeping, but he aroused pretty easily. MENTAL STATUS EXAMINATION: This patient is alert and oriented times three. Eye contact is fair. Psychomotor activity is decreased. He is verbally spontaneous. There is no formal thought disorder noted. Mood is depressed. Affect is full range and appropriate. He is not psychotic, suicidal, homicidal. Concentration is fair. Memory intact. Insight and judgment is poor. DIAGNOSES: 1. Unspecified depressive disorder. 2. Cannabis use disorder. TREATMENT PLAN: We will continue to monitor the patient for continued elevation of his mood and continued resolution of suicidal ideation and we will continue to titrate his medications as indicated.
[2017-03-18 06:00] VITALS: BP 138/88
[2017-03-18] MEDS: CHLORHEXIDINE GLUCONATE 0.12 % 15ML UDC (PERIDEX ORAL RINSE) SSP SCH ×3 (08:56→21:25)
[2017-03-18] MEDS: VENLAFAXINE **XR** 75MG CAPSULE PO SCH (08:56)
[2017-03-18] MEDS: NICOTINE 21MG/24HR 1 EA TRANSDERMAL TD SCH (08:57)
[2017-03-18] MEDS: IBUPROFEN 400 MG TAB PO PRN (17:14)
[2017-03-18 18:00] VITALS: BP 138/87
[2017-03-18] MEDS: QUEtiapine FUMARATE 100 MG TAB PO SCH (22:41)
--- NOTE | 2017-03-19 05:12 | IPN ---
DATE OF SERVICE: 03/18/2017 The patient today states that he does continue to feel depressed, but not as intense. His mood is 5/10 with the closer to 10 as the most depressing. He is still not sleeping. MENTAL STATUS EXAMINATION: This patient is alert and oriented times three. Eye contact fairly good. There is no formal thought disorder noted. He is verbally spontaneous. He says his mood is better. Affect full range and appropriate. He is not psychotic, suicidal, homicidal. Concentration and memory is good. Insight and judgment good. DIAGNOSES: 1. Other specified depressive disorder. 2. Cannabis use disorder. TREATMENT PLAN: At this point, will continue to monitor the patient for continued elevation of his mood and continued resolution of suicidal ideation and we will continue to titrate medications as indicated.
[2017-03-19 06:31] VITALS: BP 126/73
[2017-03-19] MEDS: CHLORHEXIDINE GLUCONATE 0.12 % 15ML UDC (PERIDEX ORAL RINSE) SSP SCH ×3 (08:21→21:41)
[2017-03-19] MEDS: VENLAFAXINE **XR** 75MG CAPSULE PO SCH (08:21)
[2017-03-19] MEDS: NICOTINE 21MG/24HR 1 EA TRANSDERMAL TD SCH (08:21)
--- NOTE | 2017-03-19 14:55 | IPN ---
DATE: 03/19/2017 31-year-old male with history of depression and unspecified personality disorder, admitted with exacerbation of depressive symptoms and suicidal ideation. SUBJECTIVE: "I am feeing depressed." OBJECTIVE: Patient has improved from admission. Social work has been able to help him with his core problems and living arrangements. Patient is able to contract for safety during the interview. There is no evidence of psychotic symptoms. No auditory or visual hallucinations or delusions. MENTAL STATUS EXAMINATION: Patient is depressed in [facility]. Patient is cooperative during the interview. Has fair eye contact. Speech is soft and monotone. Mood is depressed, but improved. Affect is restricted. No evidence of delusions or hallucinations. Memory, attention and concentration are fair. Patient is able to contrast for hospitalization during this hospitalization. Insight and judgment is limited. ASSESSMENT: 1. Depression. 2. Cannabis abuse. 3. Suicidal ideation. PLAN: 1. Continue Effexor XR 75 mg by mouth every morning 2. Continue Seroquel 100 mg by mouth at bedtime 3. Continue medication management, individual and group therapy.
[2017-03-19] MEDS: IBUPROFEN 400 MG TAB PO PRN (16:53)
[2017-03-19 18:00] VITALS: BP 142/68
[2017-03-19] MEDS: QUEtiapine FUMARATE 100 MG TAB PO SCH (22:50)
[2017-03-20 06:42] VITALS: BP 136/74
[2017-03-20] MEDS: NICOTINE 21MG/24HR 1 EA TRANSDERMAL TD SCH (08:25)
[2017-03-20] MEDS: VENLAFAXINE **XR** 75MG CAPSULE PO SCH (08:27)
[2017-03-20] MEDS: CHLORHEXIDINE GLUCONATE 0.12 % 15ML UDC (PERIDEX ORAL RINSE) SSP SCH (08:27)
[2017-03-20] MEDS ORDERED: VENL75CA PO (09:16)
[2017-03-20] MEDS ORDERED: QUET1TAB8 PO ×2 (09:16→21:12)
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
[2017-03-20] MEDS ORDERED: VENL75CA47 PO (21:12)
== END 2017-03-20 11:55 | disposition home or self-care (01) | DRG 754 ==
LOC: M ED 02:12 → M ED INP 03:30 → M PSY 04:48
PROVIDERS: ADMIT Psychiatry & Neurology Psychiatry; ATTEND Psychiatry & Neurology Psychiatry
DX: F43.21 Adjustment disorder with depressed mood (principal); I10 Essential (primary) hypertension; R45.851 Suicidal ideations; F12.20 Cannabis dependence, uncomplicated; F17.210 Nicotine dependence, cigarettes, uncomplicated; F19.94 Other psychoactive substance use, unspecified with psychoactive substance-induced mood disorder; Z79.899 Other long term (current) drug therapy; Z80.3 Family history of malignant neoplasm of breast

== ENCOUNTER 2017-03-20 14:44 | Inpatient (IN) | payer OTHER ==
[~2017-03-20] VITALS: Ht 162.6 cm; Wt 68.6 kg
[~2017-03-20 14:44] MED LIST changes: +ADDE5TAB5 PO; +QUET1TAB8 PO; +VENL75CA PO
[2017-03-20 15:49] LABS: MEAN CORPUSCULAR HEMOGLOBIN 31.3 pg (27.0-33.0); MEAN CORPUSCULAR HGB CONC 34.2 g/dl (32.0-36.5); MEAN CORPUSCULAR VOLUME 91.5 fl (80.0-96.0); RED CELL DISTRIBUTION WIDTH 12.8 % (11.5-14.5); WHITE BLOOD COUNT 13.5 K/mm3 (4.0-10.0)
[2017-03-20 16:11] LABS: METHADONE URINE NEGATIVE (NEGATIVE)
[2017-03-20 16:22] LABS: ALBUMIN 4.6 GM/DL (3.2-5.2); ALBUMIN/GLOBULIN RATIO 1.48 (1.00-1.93); ALKALINE PHOSPHATASE 75 U/L (45-117); ALT/SGPT 106 U/L (12-78); ANION GAP 9 MEQ/L (8-16); AST/SGOT 34 U/L (15-37); BILIRUBIN,DIRECT < 0.1 MG/DL (0.0-0.2); BILIRUBIN,TOTAL 0.3 MG/DL (0.2-1.0); BLOOD UREA NITROGEN 12 MG/DL (7-18); CALCIUM LEVEL 9.2 MG/DL (8.5-10.1); CARBON DIOXIDE LEVEL 27 MEQ/L (21-32); CHLORIDE LEVEL 105 MEQ/L (98-107); GLOMERULAR FILTRATION RATE > 60.0 (>60); GLUCOSE, FASTING 94 MG/DL (70-105); POTASSIUM SERUM 3.7 MEQ/L (3.5-5.1); SODIUM LEVEL 141 MEQ/L (136-145); TOTAL PROTEIN 7.7 GM/DL (6.4-8.2)
[2017-03-20] MEDS: QUEtiapine FUMARATE 100 MG TAB PO SCH (21:00)
[2017-03-20] MEDS ORDERED: QUET1TAB8 PO (21:12)
[2017-03-20] MEDS ORDERED: VENL75CA47 PO (21:12)
[2017-03-20] MEDS ORDERED: MOM 30ML SUSPENSION UDC PO PRN (23:45)
[2017-03-20] MEDS ORDERED: traZODone 50 MG TAB PO PRN (23:45)
[2017-03-20] MEDS ORDERED: MAALOX 30 ML SUSP *UDC PO PRN (23:45)
[2017-03-21 02:24] VITALS: BP 157/98
[2017-03-21 06:08] VITALS: BP 136/87
[2017-03-21] MEDS: NICOTINE 21MG/24HR 1 EA TRANSDERMAL TD SCH (08:15)
[2017-03-21] MEDS: VENLAFAXINE **XR** 75MG CAPSULE PO SCH (08:15)
[2017-03-21] MEDS ORDERED: CHLORHEXIDINE GLUCONATE 0.12 % 15ML UDC (PERIDEX ORAL RINSE) SSP SCH (09:00)
--- NOTE | 2017-03-21 09:50 | HPEPDOC ---
Medical History and Physical Date of Admission Mar 20, 2017 at 22:25 History and Physical PCP: None Dental provider. None. ATTENDING: Dr. Mario Alberto Shirley HPI: 31yoM admitted to [facility] for adjustment disorder with depressed mood, being medically examined today. No acute medical complaints today. His only complaint today is nasal dryness related to dry air on the unit. Currently he does not report any dental pain. He reports no headache, vision changes, dizziness. Denies any fevers, chills, weakness, fatigue, SIGALA, CP, SOB, cough, palpitations, abdominal pain, N/V/D or changes in bowel or bladder habits. PMHx: ADHD Anxiety Panic disorder Insomnia Bipolar disorder Tobacco use Poor dentition PSHX: Denies SOCHX: Resides in: [facility] Marital Status: Single Kids: None Employment: Unemployed Tobacco use: 2 packs per day ETOH: One to 2 times per month 3-5 drinks Illicit Drugs: Marijuana monthly IV Drug Use: Denies Tattoos done unprofessionally: Denies FAMHX: Mother: , breast cancer Father: Alive, unknown Siblings: Alive, well Children: None Unexpected deaths due to medical reasons: None. ROS: As noted in HPI, otherwise 11pt ROS of systems reviewed and unremarkable PE: GEN: 31yoM, appears stated age. Well-nourished, well developed. No acute distress. Alert and oriented x 3. Pleasant, interactive. HEENT: Normocephalic, atraumatic. Pupils are equal, round, and reactive to light. Extraocular movements are intact. No nystagmus appreciated. Sclera are nonicteric. Conjunctiva without injection. Nose midline. Nasal turbinates without bogginess. EACs both patent BL. TMs both visualized and ghotra with good cone of light, no bulging or erythema. No facial asymmetry. Moist mucous membranes. Dentition poor, currently no areas of erythema, swelling, tenderness. Pharynx pink and moist, no cobblestoning. Neck supple, trachea midline. No lymphadenopathy or thyromegaly appreciated. CHEST: Regular rate and rhythm, +S1, +S2 LUNGS: Clear to auscultation bilaterally. No wheezes, rales, or rhonchi. Breathing appears symmetric and easy. Patient is speaking in full sentences. No accessory muscle use. ABD: Round, soft, non-tender, non-distended. +Bowel sounds throughout. No rebound or guarding. No costovertebral angle tenderness. EXT: Pulses 2+ bilaterally dorsalis pedis and radial. No lower extremity edema appreciated. SKIN: [place], dry, warm. Capillary refill <2sec. No rashes. Small area of ecchymosis is noted under the right lower lid, seems to be resolving. No swelling, tenderness with palpation around the left eye. NEURO: Alert and oriented x 3. Cranial nerves III-XII are intact. No focal deficits appreciated. EK06/29/16 SR. Nonspecific T wave abnormalities. A&P: 31yoM admitted to [facility] for depressive disorder unspecified 1. Psych. Plan per Psychiatry. EKG on file. 2. Nicotine dependence. Patch available. 3. Poor dentition. No acute issues at this time. Tylenol if needed. Chlorhexidine 3 times a day. Arrange dental appointment at discharge. 4. Follow up. No Primary Care Provider. Will attempt to establish PCP on discharge. 5. Leukocytosis. Patient is afebrile. Asymptomatic. Recheck CBC. 6. Substance use. Per psychiatry. 7. Nasal dryness. Saline nasal spray as needed. 8. Staff member present throughout exam, safety person Ed. Vital Signs Vital Signs Date Time Temp Pulse Resp B/P (MAP) Pulse Ox O2 Delivery O2 Flow Rate FiO2 03/21/17 06:08 98.6 63 18 136/87 (103) 03/20/17 22:49 99 Room Air Laboratory Data Labs 24H Laboratory Tests 2 03/20/17 15:26: Urine Amphetamines Screen NEGATIVE, Urine Benzodiazepines Screen NEGATIVE, Urine Opiates Screen NEGATIVE, Urine Methadone Screen NEGATIVE, Urine Barbiturates Screen NEGATIVE, Urine Phencyclidine Screen NEGATIVE, Urine Cocaine Metabolite Screen NEGATIVE, Urine Cannabinoids Screen NEGATIVE 03/20/17 15:27: Anion Gap 9, Glomerular Filtration Rate > 60.0, Calcium Level 9.2, Aspartate Amino Transf (AST/SGOT) 34, Alanine Aminotransferase (ALT/SGPT) 106H, Alkaline Phosphatase 75, Total Bilirubin 0.3, Direct Bilirubin < 0.1, Total Protein 7.7, Albumin 4.6, Albumin/Globulin Ratio 1.48, Thyroid Stimulating Hormone (TSH) 1.610, Salicylates Level 2.5L, Acetaminophen Level < 2.0L, Ethyl Alcohol Level < 0.003 CBC/BMP Laboratory Tests 03/20/17 15:27 Red Blood Count 4.86, Mean Corpuscular Volume 91.5, Mean Corpuscular Hemoglobin 31.3, Mean Corpuscular Hemoglobin Concent 34.2, Red Cell Distribution Width 12.8 Home Medications Scheduled Quetiapine Fumerate (Quetiapine Fumarate) 100 Mg Tab, 100 MG PO QHS Venlafaxine HCl (Venlafaxine HCl ER) 75 Mg Capcr, 75 MG PO DAILY Allergies Coded Allergies: No Known Drug Allergy (Verified Allergy, Unknown, 01/20/13) Chiara Sharpe Mar 21, 2017 09:50
[2017-03-21] MEDS ORDERED: SODIUM CHLORIDE NASAL 0.65% SPRAY BTL (OCEAN) PRN (10:00)
[2017-03-21] MEDS: CHLORHEXIDINE GLUCONATE 0.12 % 15ML UDC (PERIDEX ORAL RINSE) SSP SCH ×3 (10:37→22:34)
[2017-03-21 11:43] VITALS: BP 122/80
[2017-03-21 18:00] VITALS: BP 140/87
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
[2017-03-21] MEDS: ACETAMINOPHEN TAB 650MG DOSE (2X325MG) PO PRN (20:32)
[2017-03-21] MEDS: QUEtiapine FUMARATE 100 MG TAB PO SCH (22:34)
[2017-03-22 06:37] VITALS: BP 144/84
[2017-03-22 07:50] LABS: MEAN CORPUSCULAR HEMOGLOBIN 31.1 pg (27.0-33.0); MEAN CORPUSCULAR HGB CONC 33.7 g/dl (32.0-36.5); MEAN CORPUSCULAR VOLUME 92.4 fl (80.0-96.0); RED CELL DISTRIBUTION WIDTH 12.7 % (11.5-14.5); WHITE BLOOD COUNT 7.4 K/mm3 (4.0-10.0)
[2017-03-22] MEDS: NICOTINE 21MG/24HR 1 EA TRANSDERMAL TD SCH (08:24)
[2017-03-22] MEDS: VENLAFAXINE **XR** 75MG CAPSULE PO SCH (08:24)
[2017-03-22] MEDS: CHLORHEXIDINE GLUCONATE 0.12 % 15ML UDC (PERIDEX ORAL RINSE) SSP SCH ×3 (08:24→22:12)
--- NOTE | 2017-03-22 15:21 | IPN ---
DATE: 03/22/2017 31-year-old male with a history of depression and unspecified personality disorder, admitted for worsening of depressive symptoms and suicidal thoughts. SUBJECTIVE: "I feel much better today." OBJECTIVE: The patient is significantly improved from admission. The patient now has learned that our assistant media planner has been in touch with DSS department and things have been clarified. They were reporting that the patient was not following their indications and recommendations. During the interview, the patient is calm and cooperative, euthymic and hopeful that things will go well this time. MENTAL STATUS EXAMINATION: The patient is dressed in [facility]. The patient is clean and well groomed. Has fair eye contact. Speech is normal in rate, volume, articulation. It is coherent and is spontaneous. Mood is euthymic. Affect is congruent with mood. There is no evidence of delusions or hallucinations. Memory, attention, and concentration are fair. The patient denies suicidal or homicidal ideation. Insight and judgment fair. ASSESSMENT: 1. Depression. 2. Suicidal ideation. PLAN: 1. Continue with Effexor XR 75 mg by mouth in the morning. 2. Continue with Seroquel 100 mg by mouth at night. 3. Continue medication management, individual and group therapy. If the patient continues to improve, he will be discharged tomorrow morning.
[2017-03-22 18:31] VITALS: BP 134/81
[2017-03-22] MEDS: QUEtiapine FUMARATE 100 MG TAB PO SCH (22:11)
[2017-03-22] MEDS: ACETAMINOPHEN TAB 650MG DOSE (2X325MG) PO PRN (22:13)
[2017-03-23 07:17] VITALS: BP 133/76
[2017-03-23] MEDS: NICOTINE 21MG/24HR 1 EA TRANSDERMAL TD SCH (08:22)
[2017-03-23] MEDS: VENLAFAXINE **XR** 75MG CAPSULE PO SCH (08:22)
[2017-03-23] MEDS: CHLORHEXIDINE GLUCONATE 0.12 % 15ML UDC (PERIDEX ORAL RINSE) SSP SCH (10:15)
--- NOTE | 2017-03-23 21:25 | MHDS ---
DATE OF ADMISSION: 03/23/2017 DATE OF DISCHARGE: 03/23/2017 HISTORY OF PRESENT ILLNESS: 31-year-old male with history of depression and unspecified personality disorder and by his report attention deficit hyperactive disorder (ADHD). The patient was just discharged from our unit earlier this morning hoping to get help for housing through [facility]. He stated that they denied him assistance. Threatened to close his case with no assistance. No food stamps and no help whatsoever. It is also reported that in the chart that he could not finish some paperwork since he was admitted at our unit. Reports that he felt very overwhelmed that "my head was not working correctly", felt hopeless, helpless, went to [facility] to seek help. He stated "I might as well be " and reported suicidal ideation with plan to jump from a bridge. He was referred to emergency department (ED) for an evaluation. The patient is denying any usual drugs or alcohol. During the interview, he reports feeling very depressed, hopeless and helpless with poor self-esteem and intermittent suicidal thoughts. The patient is very anxious about the above situation. There is no evidence of psychotic symptoms, no auditory or visual hallucinations or delusions. LABORATORY AT ADMISSION: Complete blood count (CBC) is unremarkable. Comprehensive metabolic panel (CMP) within normal limits except ALT of 106, thyroid simulating hormone (TSH) is within normal limits. Urine drug screen (UDS) is negative. Blood alcohol is negative. HOSPITAL COURSE: The patient was admitted and restarted on previous admission medications, which are Effexor XR 75 mg by mouth every morning and Seroquel 100 mg by mouth at bedtime (q.h.s.). With this medication, the patient was stabilized. The patient had no complications during this hospital admission. The patient was interacting well with peers and staff. His mood improved fast when he learned that neonatal social worker was in touch with DSS and that she was able to help him. At the moment of discharge, the patient is in stable condition with no auditory or visual hallucinations, delusions, suicidal or homicidal ideation. The patient is tolerating well the medication and is stating that he will followup treatment and recommendation. MENTAL STATUS EXAMINATION AT DISCHARGE: The patient is dressed in [facility]. The patient is calm and cooperative. His speech is clear, coherent with normal rate and is spontaneous. The patient has good eye contact. Mood is euthymic. Affect is appropriate and congruent with mood. The patient is oriented to time, place, person and situation. Maintains attention and concentration correctly. Instant recall, recent and remote memory are intact. Thought process are coherent, logical and goal directed. The patient does not have auditory or visual hallucinations. The patient does not have paranoid, persecutory, somatic, grandiose or amish delusion. The patient is denying suicidal or homicidal ideation. Judgment and insight are fair. DISCHARGE MEDICATIONS: - Effexor XR 75 mg by mouth every morning - Seroquel 100 mg by mouth at bedtime (q.h.s.) DISCHARGE DIAGNOSES: AXIS I: Adjustment disorder with depressed and anxious mood. AXIS II: Deferred. AXIS III: None acute. CONDITION AT DISCHARGE: Stable. No suicidal or homicidal ideation. No auditory of visual hallucinations or delusions. INSTRUCTIONS TO THE PATIENT: The patient is to continue taking his medications as prescribed and followup appointment. He is advised to maintain absolute sobriety from drugs and alcohol. The patient has a scheduled appointment for medication management, individual psychotherapy and primary care physician.
== END 2017-03-23 10:45 | disposition home or self-care (01) | DRG 755 ==
LOC: M ED 15:34 → M ED INP 22:25 → M PSY 23:03
PROVIDERS: ADMIT Psychiatry & Neurology Psychiatry; ATTEND Psychiatry & Neurology Psychiatry
DX: F43.23 Adjustment disorder with mixed anxiety and depressed mood (principal); R45.851 Suicidal ideations; F17.210 Nicotine dependence, cigarettes, uncomplicated; F12.90 Cannabis use, unspecified, uncomplicated; J34.89 Other specified disorders of nose and nasal sinuses; D72.829 Elevated white blood cell count, unspecified; Z79.899 Other long term (current) drug therapy

== ENCOUNTER 2017-05-21 10:06 | Inpatient (IN) | payer OTHER ==
[~2017-05-21] VITALS: Ht 165.1 cm; Wt 70.0 kg
[~2017-05-21 10:06] MED LIST changes: +ADDE1TAB14 PO; -ADDE5TAB5 PO; -VENL75CA PO; +VENL75CA2 PO; +VENL75CA47 PO
[2017-05-21] MEDS ORDERED: AMPHETAMINE PO (10:34)
[2017-05-21 13:26] LABS: MEAN CORPUSCULAR HEMOGLOBIN 31.1 pg (27.0-33.0); MEAN CORPUSCULAR HGB CONC 34.8 g/dl (32.0-36.5); MEAN CORPUSCULAR VOLUME 89.5 fl (80.0-96.0); RED CELL DISTRIBUTION WIDTH 12.9 % (11.5-14.5); WHITE BLOOD COUNT 9.1 K/mm3 (4.0-10.0)
[2017-05-21] MEDS ORDERED: AMPH20CA PO (13:34)
[2017-05-21 13:44] LABS: METHADONE URINE NEGATIVE (NEGATIVE)
[2017-05-21 13:58] LABS: ALBUMIN 4.7 GM/DL (3.2-5.2); ALBUMIN/GLOBULIN RATIO 1.24 (1.00-1.93); ALKALINE PHOSPHATASE 87 U/L (45-117); ALT/SGPT 78 U/L (12-78); ANION GAP 9 MEQ/L (8-16); AST/SGOT 25 U/L (15-37); BILIRUBIN,DIRECT 0.1 MG/DL (0.0-0.2); BILIRUBIN,TOTAL 0.6 MG/DL (0.2-1.0); BLOOD UREA NITROGEN 15 MG/DL (7-18); CALCIUM LEVEL 9.7 MG/DL (8.5-10.1); CARBON DIOXIDE LEVEL 28 MEQ/L (21-32); CHLORIDE LEVEL 105 MEQ/L (98-107); CREATININE FOR GFR 0.99 MG/DL (0.70-1.30); GLOMERULAR FILTRATION RATE > 60.0 (>60); GLUCOSE, FASTING 90 MG/DL (70-105); SODIUM LEVEL 142 MEQ/L (136-145); TOTAL PROTEIN 8.5 GM/DL (6.4-8.2)
[2017-05-21] MEDS ORDERED: MOM 30ML SUSPENSION UDC PO PRN (14:45)
[2017-05-21] MEDS ORDERED: ACETAMINOPHEN TAB 650MG DOSE (2X325MG) PO PRN (14:45)
[2017-05-21] MEDS ORDERED: MAALOX 30 ML SUSP *UDC PO PRN (14:45)
[2017-05-21 15:25] VITALS: BP 147/92
[2017-05-21] MEDS: SERTRALINE HCL 50 MG TAB PO SCH (16:14)
[2017-05-21] MEDS: traZODone 50 MG TAB PO PRN (22:24)
[2017-05-22 06:41] VITALS: BP 144/92
[2017-05-22] MEDS: SERTRALINE HCL 50 MG TAB PO SCH (08:04)
--- NOTE | 2017-05-22 10:20 | HPEPDOC ---
Medical History and Physical Date of Admission May 21, 2017 at 14:55 History and Physical PCP: None Dental provider. Patient states appointment to establish 07/31 ATTENDING: Dr. Mario Alberto Shirley HPI: 31yoM admitted to [facility] for unspecified depressive disorder, being medically examined today. No acute medical complaints today. Currently he does not report any dental pain, he states this has been controlled. Dentition remains poor. He states he has an appointment to establish with a dental provider 07/31. He reports no headache, vision changes, dizziness. Denies any fevers, chills, weakness, fatigue, SIGALA, CP, SOB, cough, palpitations, abdominal pain, N/V/D or changes in bowel or bladder habits. PMHx: ADHD Anxiety Panic disorder Insomnia Bipolar disorder Tobacco use Poor dentition PSHX: Denies SOCHX: Resides in: [facility] Marital Status: Single Kids: None Employment: Unemployed Tobacco use: 2 packs per day ETOH: Denies Illicit Drugs: Marijuana monthly IV Drug Use: Denies Tattoos done unprofessionally: Denies FAMHX: Mother: , breast cancer Father: Alive, unknown Siblings: Alive, well Children: None Unexpected deaths due to medical reasons: None. ROS: As noted in HPI, otherwise 11pt ROS of systems reviewed and unremarkable. PE: GEN: 31yoM, appears stated age. Well-nourished, well developed. No acute distress. Alert and oriented x 3. Pleasant, interactive. HEENT: Normocephalic, atraumatic. Pupils are equal, round, and reactive to light. Extraocular movements are intact. No nystagmus appreciated. Sclera are nonicteric. Conjunctiva without injection. Nose midline. Nasal turbinates without bogginess. EACs both patent BL. TMs both visualized and ghotra with good cone of light, no bulging or erythema. No facial asymmetry. Moist mucous membranes. Dentition poor, currently no areas of erythema, swelling, tenderness. Pharynx pink and moist, no cobblestoning. Neck supple, trachea midline. No lymphadenopathy or thyromegaly appreciated. CHEST: Regular rate and rhythm, +S1, +S2 LUNGS: Clear to auscultation bilaterally. No wheezes, rales, or rhonchi. Breathing appears symmetric and easy. Patient is speaking in full sentences. No accessory muscle use. ABD: Round, soft, non-tender, non-distended. +Bowel sounds throughout. No rebound or guarding. No costovertebral angle tenderness. EXT: Pulses 2+ bilaterally dorsalis pedis and radial. No lower extremity edema appreciated. SKIN: [place], dry, warm. Capillary refill <2sec. No rashes. Small area of ecchymosis is noted under the right lower lid, seems to be resolving. No swelling, tenderness with palpation around the left eye. NEURO: Alert and oriented x 3. Cranial nerves III-XII are intact. No focal deficits appreciated. EKG: Pending A&P: 31yoM admitted to [facility] for unspecified depressive disorder 1. Psych. Plan per Psychiatry. EKG pending. 2. Nicotine dependence. Patch available. 3. Poor dentition. No acute issues at this time. Tylenol if needed. Chlorhexidine 3 times a day. Ensure dental appointment at discharge. 4. Follow up. No Primary Care Provider. Will attempt to establish PCP on discharge. 5. Substance use. Per psychiatry. 6. Staff member present throughout exam, kendra Castañeda. Vital Signs Vital Signs Date Time Temp Pulse Resp B/P (MAP) Pulse Ox O2 Delivery O2 Flow Rate FiO2 05/22/17 06:41 98.5 91 18 144/92 (109) Room Air 05/21/17 14:52 97 Laboratory Data Labs 24H Laboratory Tests 2 05/21/17 13:02: Anion Gap 9, Glomerular Filtration Rate > 60.0, Calcium Level 9.7, Aspartate Amino Transf (AST/SGOT) 25, Alanine Aminotransferase (ALT/SGPT) 78, Alkaline Phosphatase 87, Total Bilirubin 0.6, Direct Bilirubin 0.1, Total Protein 8.5H, Albumin 4.7, Albumin/Globulin Ratio 1.24, Thyroid Stimulating Hormone (TSH) 0.962, Salicylates Level 2.9L, Urine Amphetamines Screen NEGATIVE, Urine Benzodiazepines Screen NEGATIVE, Urine Opiates Screen NEGATIVE, Urine Methadone Screen NEGATIVE, Acetaminophen Level < 2.0L, Urine Barbiturates Screen NEGATIVE , Urine Phencyclidine Screen NEGATIVE, Urine Cocaine Metabolite Screen NEGATIVE , Urine Cannabinoids Screen POSITIVEH, Ethyl Alcohol Level < 0.003 CBC/BMP Laboratory Tests 05/21/17 13:02 Red Blood Count 5.41, Mean Corpuscular Volume 89.5, Mean Corpuscular Hemoglobin 31.1, Mean Corpuscular Hemoglobin Concent 34.8, Red Cell Distribution Width 12.9 Home Medications Scheduled Amphetamine/Dextroamphetamine (Amphetamine/Dextroampheta 20 mg) 1 Cap Cap, 1 CAP PO BID Quetiapine Fumerate (Quetiapine Fumarate) 100 Mg Tab, 200 MG PO QHS Allergies Coded Allergies: Clonidine (Verified Adverse Reaction, Mild, 05/21/17) IRRITABLE Chiara Sharpe May 22, 2017 10:20
[2017-05-22] MEDS: NICOTINE 21MG/24HR 1 EA TRANSDERMAL TD SCH (10:22)
[2017-05-22] MEDS: CHLORHEXIDINE GLUCONATE 0.12 % 15ML UDC (PERIDEX ORAL RINSE) SSP SCH ×3 (11:34→21:25)
--- NOTE | 2017-05-22 17:22 | MHHPEPDOC ---
[facility] History & Physical History and Physical DATE OF ADMISSION: May 21, 2017 at 14:55 LEGAL STATUS AT ADMISSION: 9.39 CHIEF COMPLAINT: "I self-discontinued my anti-depressant medication". HISTORY OF THE PRESENT ILLNESS: Patient is a 31-year-old male, who has a reported history of depression vs bipolar disorder who presents to the hospital with a reported increase in depressive symptoms and vague feelings of lack of safety following non-compliance with his Effexor approximately one month ago. He states he "didn't realize you couldn't just stop antidepressants cold turkey " and that since stopping he has felt a gradual increase in depressive symptoms. When questioned about this the patient is vague and states "I feel down and out" and "I have to fake smiles and drink caffeine all the time just to feel happy". Patient states that he stopped his anti-depressant due to difficulties achieving and maintaining an erection. He also feels that his concentration has suffered and that he loses track of conversations "all the time"; notably the patient provides a clear, consistent history throughout the interview and did not have difficulty remembering recent or remote events. Patient states that he has been tired all the time and needs large quantities of caffeine to stay awake and "happy", he also reports poor sleep during this time period but states that he usually sleeps 8-9 hours a night and has no difficulty falling asleep or with early awakenings, he simply does not feel rested. Patient states that he has had past episodes where he was awake for many days and felt as though he had plenty of energy, although he conflicts with his earlier report involving needing large quantities of caffeine recently as he says his last "up" period was less than 1 week ago. Patient felt it best if he came to the ED for stabilization and to be restarted on medications and now that he is here feels "much better already". PSYCHIATRIC REVIEW OF SYSTEMS: Affective: reports vague depressed mood, non-restorative sleep, and subjective difficulties concentrating; denies anhedonia, loss of appetite, guilt/ worthlessness, or current suicidal ideation; does admit to "some" suicidal thoughts but denies any plan or intent. Reports manic symptoms such as increased energy, impulsive shopping "I'll see a pair of headphones at the store and buy it thinking I'll treat myself even though I have 3 pairs at home" , and increased irritability, mild grandiosity present "I have a good sense of humor and can make people laugh easy; I make friends and don't even know I'm doing it"; denies pressured speech or racing thoughts, no clear timeline of these symptoms. Reports that his mood and energy "bounces up and down from one minute to the next; sometimes I'm happy and laughing and the next I can barely stay awake in my chair" Anxiety: reports general anxiety regarding his life; does not give clear indication of how this has impacted him other than to be consistently irritable Trauma: denies trauma history Psychosis: denies auditory or visual hallucinations PAST PSYCHIATRIC HISTORY: Prior Psychiatric Disorder: Major Depressive Disorder Outpatient Treatment: psychiatrist seen through [facility], patient does not like and has been poorly compliant, was not aware of name Suicidal/Self injurious: denies history Psychotropic Medication History: Effexor; Seroquel; Clonidine; Adderall ALLERGIES: Please see below. FAMILY PSYCHIATRIC HISTORY: "we all have mental issues"; not aware of specific diagnoses but believes anxiety and depression SOCIAL HISTORY: Early Relations/development: had a "decent" childhood; raised by mother and father Sibling order: middle of 3 children Paternal relationships: states parents live in nearby city; previous admission indicate that his mother when he was 15; patient states he has contentious relationship and does not wish to discuss Education: completed high school, in "special-ed" Occupational: unemployed currently; previously multiple unskilled jobs Legal: endorses legal history but does not disclose; previous admissions indicate he was arrested for breaking into cars Marital: single Economic: currently unemployed and homeless; receives some public assistance Supports: "I have a lot of friends" Abuse/trauma: denies SUBSTANCE ABUSE HISTORY: reports infrequent use of marijauna and alcohol; past admissions indicate that patient minimizes his marijuana use and is likely a regular consumer PAST MEDICAL/SURGICAL HISTORY: hypertension Vital Signs Date Time Temp Pulse Resp B/P (MAP) Pulse Ox O2 Delivery O2 Flow Rate FiO2 05/21/17 10:06 99.1 121 18 134/96 (109) 96 05/22/17 06:41 Room Air MENTAL STATUS EXAMINATION: 31 year old male, appears stated age, dressed in [facility]; calm and cooperative with interview, laughs readily; speech is fluent, coherent, and has normal rate and rhythm. Thought process is logical, goal-oriented; associations are intact, abstraction intact; denies SI/HI, denies AVH and no evidence of internal preoccupation. Recent and remote memory appear intact; cognition grossly intact. Mood is "better now", euthymic, full range, smiles appropriately. 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 The patient does not appear to be in current psychiatric distress and seems to be functioning at his baseline. However, he describes emotional stressors which he indicates makes him feel vulnerable and in need of medication. Patient has disliked previous psychotropic trials because of sexual dysfunction. Patient also reports ADHD which appears poorly controlled with his current stimulant medications. Of note the patient indicates he was never medicated until 4-5 years ago, all diagnoses have been present only as an adult. He does describe himself as having been "a problem child" but does not provide elaboration during this interview. The patient would likely benefit from inpatient stay for medication management and stabilization as he has poor coping skills and an apparently limited support system as indicated by his decision to stop pharmacotherapy without a discussion with his provider. PROBLEM LIST: 1. poor coping skills 2. risk for self-harm 3. depression INITIAL TREATMENT PLAN: 1. Patient was admitted on a 9.39 2. Complete history was obtained. 3. With patients permission, family will be contacted and database will be expanded. 4. Patients medication regimen will be reviewed and changed accordingly. Will plan to start patient on Wellbutrin. 5. Patient will be provided with protected environment. 6. Patient will be treated with individual, group, and milieu therapies. 7. Patient will receive supportive psych-education. 8. Discharge planning will commence immediately. 9. Outpatient follow-up treatment will be strongly recommended. 10. The initial treatment plan will focus initially on: * Depression. * Risk for suicide. * Substance abuse. ESTIMATED LENGTH OF STAY: 3-5 DAYS. TIME SPENT COUNSELING AND COORDINATING INITIAL CARE: 60 minutes. Medications Scheduled Amphetamine/Dextroamphetamine (Amphetamine/Dextroampheta 20 mg) 1 Cap Cap, 1 CAP PO BID, (Reported) Quetiapine Fumerate (Quetiapine Fumarate) 100 Mg Tab, 200 MG PO QHS, (Reported) Allergies Coded Allergies: Clonidine (Verified Adverse Reaction, Mild, 05/21/17) IRRITABLE MARLO HOPE MD May 22, 2017 17:22
[2017-05-22 18:07] VITALS: BP 138/84
[2017-05-22] MEDS: traZODone 50 MG TAB PO PRN (21:25)
[2017-05-23 06:45] VITALS: BP 143/89
[2017-05-23] MEDS: buPROPion 75 MG TAB PO SCH (08:17)
[2017-05-23] MEDS: NICOTINE 21MG/24HR 1 EA TRANSDERMAL TD SCH (08:17)
[2017-05-23] MEDS: CHLORHEXIDINE GLUCONATE 0.12 % 15ML UDC (PERIDEX ORAL RINSE) SSP SCH ×3 (08:17→21:47)
[2017-05-23] MEDS: QUEtiapine FUMARATE 100 MG TAB PO SCH (14:58)
[2017-05-23] MEDS: hydrOXYzine 50 MG TAB PO SCH ×2 (16:00→21:47)
[2017-05-23 18:05] VITALS: BP 140/72
[2017-05-23] MEDS: QUEtiapine FUMARATE 200 MG TAB PO SCH (21:48)
--- NOTE | 2017-05-23 22:07 | MHIPNPDOC ---
[facility] Progress Note Progress Note DATE OF SERVICE: 05/23/17 HISTORY: Patient states that he did not notice any side effects from the switch to Wellbutrin. Appreciates the fact that there is thought given to an antidepressant that will likely not interfere with his sexual life. Patient states that his sleep has been okay, but that he feels as though he is not getting quite enough. He identifies that he feels important when attending groups while on the unit because he is able to "help others" due to his experience and having been on the unit many times in the past. He questions whether he may have Bipolar Disorder because "my moods go up and down a lot, and when I'm down I'm really down". However patient gives a poor timeline of these "ups and downs" and it seems that he does not stay in any one extreme for very long. VITAL SIGNS: See below. NEW TEST RESULTS: no new labs CURRENT MEDICATIONS: See below. MENTAL STATUS EXAMINATION: 31 year old man who appears the stated age; dressed in [facility]; calm and cooperative with interview; eye contact is improved when compared to yesterday. Speech is fluent, with normal rate, rhythm, and volume. Patient's thought process appears logical, linear, and goal-oriented; he appears to have intact associations and abstraction. He denies the presence of SI/HI/AVH and states that he feels much better now that he has been on the unit. Mood is "good ", affect is euthymic, full range, congruent to stated mood. Insight appears poor, judgement appears fair. 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 Patient has been started on Wellbutrin to help with possible depression as well as his ADHD, he has not experienced any side effects at this time. Patient appears to have poor coping skills and despite his report of a strong support system has repeatedly come to the inpatient unit seeking additional help. Patient has poor insight related to his illness and feels isntead that he can help others rather than focusing on his own acknowledged problems. MANAGEMENT PLAN: Continue Wellbutrin at current dose; add 100mg Seroquel QAM to assist with anxious feelings throughout the day; discuss with patient plans for discharge; encourage patient to participate in groups but focus on his benefit rather than benefit of others TIME SPENT: 20 minutes. Vital Signs Vital Signs Date Time Temp Pulse Resp B/P (MAP) Pulse Ox O2 Delivery O2 Flow Rate FiO2 05/23/17 18:05 98.0 74 18 140/72 (94) 05/22/17 06:41 Room Air 05/21/17 14:52 97 Current Medications Current Medications Acetaminophen (Tylenol Tab) 650 mg Q6HP PRN PO HEADACHE or DISCOMFORT; Start at 14:45; Stop 06/20/17 at 14:44 Al Hydrox/Mg Hydrox/Simethicone (Mylanta) 30 ml Q4HP PRN PO HEARTBURN/ INDIGESTION; Start 05/21/17 at 14:45; Stop 06/20/17 at 14:44 Bupropion HCl (Wellbutrin) 75 mg QAM PO Last administered on 05/23/17 08:17; Start 05/23/17 at 09:00; Stop 06/22/17 at 08:59 Chlorhexidine Gluconate (Peridex Oral Rinse) 15 ml TID SSP Last administered on 05/23/17 21:47; Start 05/22/17 at 09:00; Stop 06/21/17 at 08:59 Home Med (Med Rec Complete!) ASDIRECTED XX ; Start 05/21/17 at 13:45; Stop at 13:45; Status DC Hydroxyzine HCl (Atarax) 100 mg TID PO Last administered on 05/23/17 21:47; Start 05/23/17 at 16:00; Stop 06/22/17 at 15:59 Magnesium Hydroxide (Milk Of Magnesia) 30 ml DAILYPRN PRN PO CONSTIPATION; Start 05/21/17 at 14:45; Stop 06/20/17 at 14:44 Nicotine (Nicoderm Cq 21mg) 1 patch DAILY TD Last administered on 05/23/17 08: 17; Start 05/22/17 at 09:00; Stop 06/21/17 at 08:59 Quetiapine Fumarate (SEROquel) 100 mg QAM PO Last administered on 05/23/17 14: 58; Start 05/23/17 at 09:00; Stop 06/22/17 at 08:59 Quetiapine Fumarate (SEROquel) 200 mg QHS PO Last administered on 05/23/17 21: 48; Start 05/23/17 at 21:00; Stop 06/22/17 at 20:59 Sertraline HCl (Zoloft) 50 mg DAILY PO Last administered on 05/22/17 08:04; Start 05/21/17 at 09:00; Stop 05/22/17 at 12:36; Status DC Trazodone HCl (Desyrel) 50 mg QHSP PRN PO INSOMNIA Last administered on 21:25; Start 05/21/17 at 14:45; Stop 05/23/17 at 14:24; Status DC Allergies Coded Allergies: Clonidine (Verified Adverse Reaction, Mild, 05/21/17) IRRITABLE MARLO HOPE MD May 23, 2017 22:07
--- NOTE | 2017-05-23 22:42 | ECGEPIP ---
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
[2017-05-24 07:19] VITALS: BP 138/73
[2017-05-24] MEDS: QUEtiapine FUMARATE 100 MG TAB PO SCH (09:00)
[2017-05-24] MEDS: NICOTINE 21MG/24HR 1 EA TRANSDERMAL TD SCH (09:02)
[2017-05-24] MEDS: hydrOXYzine 50 MG TAB PO SCH ×3 (09:02→20:12)
[2017-05-24] MEDS: CHLORHEXIDINE GLUCONATE 0.12 % 15ML UDC (PERIDEX ORAL RINSE) SSP SCH ×3 (09:02→20:12)
[2017-05-24] MEDS: buPROPion 75 MG TAB PO SCH (09:02)
--- NOTE | 2017-05-24 11:17 | MHIPN ---
DATE: 05/23/2017 AGE: 31 HISTORY: 31-year-old man who has been previously diagnosed with major depression, who presented for decompensated after he discontinued his medications due to intolerable side effects. DIAGNOSES: 1. Unspecified personality disorder with cluster B traits (1). 2. Unspecified depressive disorder. 3. Attention deficit hyperactivity disorder (ADHD). SUBJECTIVE: The patient reports minor trouble sleeping. He states that he woke up once during the night. He went to bed late. Reports his appetite is okay. Reports he is interacting with staff and peers on the inpatient mental health unit, says his previous psychiatrist as an outpatient used to give him Seroquel 200 mg by mouth at night because he always had that problem sleeping, however, he has reported drinking coffee, one to three cups on different days during the week, drinking Monster or other energizing drinks, one at least per day to make himself feel happy and full of energy. He denies suicidal thoughts. OBJECTIVE: The patient is alert, oriented times three, cooperative with interview, dressed in hospital clothes. His speech is spontaneous and fluid. His thought process is intact. His thought content is coherent. He denies auditory and visual hallucinations, denies thought delusions and denies suicidal or homicidal ideation. His memory is intact. Abstract reasoning and computation are fair. Attention and concentration, he is easily distractible. Judgment, insight are limited. Impulse control is fair. ASSESSMENT: The patient is cooperative. He is willing to get better. He reports having a social network at home, his neighbors, and relies on his father when he needs to. He apparently gets depressed and using energizing drinks and coffee to make himself feel better and this creates a lumbee of non sleep or sleep deprivation, which, at the same time, effects his mood and he becomes irritable and edgy. Today, he complained of feeling anxious, so he was started on Atarax 100 mg three times a day. Because he believes that he is bipolar due to the fact that other providers have told him that he might be bipolar, he was started on Seroquel 100 mg by mouth in the morning, 200 mg at bedtime. The patient has not shown signs of bipolarity, he does not fulfill the criteria of neo and he is not severely depressed at this time, but he is a little bit depressed and he seems to feel lonely at home. MANAGEMENT PLAN: We will continue with Seroquel 200 mg by mouth at night, Seroquel 100 mg by mouth in the morning, Atarax 100 mg by mouth three times a day, and bupropion or Wellbutrin 75 mg by mouth in the morning. He will continue with his nicotine patch 21 mg per 24 hours. We will monitor and followup.
--- NOTE | 2017-05-24 17:55 | MHIPNPDOC ---
[facility] Progress Note Progress Note DATE OF SERVICE: 05/24/17 HISTORY: Patient stated he has been sleeping okay; denies side effects from WEellbutrin. Was angry because he had been started on 100mg Seroquel and it was given to him in the afternoon. He stated this made him feel very sleepy. He felt that he slept all yesterday afternoon and said because of this he would not be taking the Seroquel in the morning. It was explained to the patient that this addition was made because he was concerned of being Bipolar and felt he needed a mood stabilizer; he insisted he was fine and said he wanted to return home because he had received everything he needed from this stay. Patient very irritable and acting sleepy in this interview, however approximately 1 hour previously had been observed walking in the halls talking with female patients and being very animated; was later observed in group approximately 30 minutes later participating readily. VITAL SIGNS: See below. NEW TEST RESULTS: no new labs CURRENT MEDICATIONS: See below. MENTAL STATUS EXAMINATION: 31 year old man who appears stated age; dressed in [facility]; irritable and dismissive with interview; avoidant eye contact. Speech is fluent, soft in volume, irritable tone. Thought process appears concrete, but logical and goal- oriented; associatiosn are intact. Denies SI/HI/AVH, denies paranoia or delusions; feels safe to return home. Mood is "annoyed"; irritable affect, restricted range. Insight is poor, judgement appears fair. DIAGNOSES: Unspecified Personality Disorder with Borderline and Narcissitic traits Major Depressive Disorder, mild, without psychotic features ADHD ASSESSMENT: 31 year old man with diagnoses as above who has responded well to resumption of antidepressant therapy. He has demonstrated poor coping skills and a thinly protected ego during his admission and stay. Patient has poor insight regarding his coping strategies and instead prefers to socialize on the unit as well as "help" others with his wisdom. He prefers to avoid direct responsibility and believe instead that his outpatient providers have not been providing him proper medications. He has remained free of self-harming thoughts and behaviors throughout his stay and at this time would prefer to return to his regular outpatient treatment. There are no acute safety concerns at this time. MANAGEMENT PLAN: Will contact patient's case coordinator to determine assistance with discharge planning; plan to discharge patient tomorrow to his regular outpatient providers. Will continue Wellbutrin at current dose TIME SPENT: 20 minutes. Vital Signs Vital Signs Date Time Temp Pulse Resp B/P (MAP) Pulse Ox O2 Delivery O2 Flow Rate FiO2 05/24/17 07:19 97.5 84 16 138/73 (94) 05/22/17 06:41 Room Air 05/21/17 14:52 97 Current Medications Current Medications Acetaminophen (Tylenol Tab) 650 mg Q6HP PRN PO HEADACHE or DISCOMFORT; Start at 14:45; Stop 06/20/17 at 14:44 Al Hydrox/Mg Hydrox/Simethicone (Mylanta) 30 ml Q4HP PRN PO HEARTBURN/ INDIGESTION; Start 05/21/17 at 14:45; Stop 06/20/17 at 14:44 Bupropion HCl (Wellbutrin) 75 mg QAM PO Last administered on 05/24/17 09:02; Start 05/23/17 at 09:00; Stop 06/22/17 at 08:59 Chlorhexidine Gluconate (Peridex Oral Rinse) 15 ml TID SSP Last administered on 05/24/17 15:49; Start 05/22/17 at 09:00; Stop 06/21/17 at 08:59 Home Med (Med Rec Complete!) ASDIRECTED XX ; Start 05/21/17 at 13:45; Stop at 13:45; Status DC Hydroxyzine HCl (Atarax) 100 mg TID PO Last administered on 05/24/17 15:49; Start 05/23/17 at 16:00; Stop 06/22/17 at 15:59 Magnesium Hydroxide (Milk Of Magnesia) 30 ml DAILYPRN PRN PO CONSTIPATION; Start 05/21/17 at 14:45; Stop 06/20/17 at 14:44 Nicotine (Nicoderm Cq 21mg) 1 patch DAILY TD Last administered on 05/24/17 09: 02; Start 05/22/17 at 09:00; Stop 06/21/17 at 08:59 Quetiapine Fumarate (SEROquel) 100 mg QAM PO Last administered on 05/23/17 14: 58; Start 05/23/17 at 09:00; Stop 06/22/17 at 08:59 Quetiapine Fumarate (SEROquel) 200 mg QHS PO Last administered on 05/23/17 21: 48; Start 05/23/17 at 21:00; Stop 06/22/17 at 20:59 Sertraline HCl (Zoloft) 50 mg DAILY PO Last administered on 05/22/17 08:04; Start 05/21/17 at 09:00; Stop 05/22/17 at 12:36; Status DC Trazodone HCl (Desyrel) 50 mg QHSP PRN PO INSOMNIA Last administered on 21:25; Start 05/21/17 at 14:45; Stop 05/23/17 at 14:24; Status DC Allergies Coded Allergies: Clonidine (Verified Adverse Reaction, Mild, 05/21/17) IRRITABLE MARLO HOPE MD May 24, 2017 17:55
[2017-05-24 18:00] VITALS: BP 139/79
[2017-05-24] MEDS: QUEtiapine FUMARATE 200 MG TAB PO SCH (22:31)
[2017-05-25 07:00] VITALS: BP 106/100
[2017-05-25] MEDS: CHLORHEXIDINE GLUCONATE 0.12 % 15ML UDC (PERIDEX ORAL RINSE) SSP SCH (08:41)
[2017-05-25] MEDS: buPROPion 75 MG TAB PO SCH (08:42)
[2017-05-25] MEDS: QUEtiapine FUMARATE 100 MG TAB PO SCH (08:42)
[2017-05-25] MEDS: hydrOXYzine 50 MG TAB PO SCH (08:42)
[2017-05-25] MEDS: NICOTINE 21MG/24HR 1 EA TRANSDERMAL TD SCH (08:44)
[2017-05-25] MEDS ORDERED: BUPR75TA5 PO (12:01)
[2017-05-25] MEDS ORDERED: NICO21PAT TD (12:01)
[2017-05-25] MEDS ORDERED: HYDRO50TAB PO (12:01)
--- NOTE | 2017-05-25 14:41 | MHDSPDOC ---
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 He states he "didn't realize you couldn't just stop antidepressants cold " and that since stopping he has felt a gradual increase in depressive symptoms. When questioned about this the patient is vague and states "I feel down and out" and "I have to fake smiles and drink caffeine all the time just to feel happy". Patient states that he stopped his anti-depressant due to difficulties achieving and maintaining an erection. He also feels that his concentration has suffered and that he loses track of conversations "all the time"; notably the patient provides a clear, consistent history throughout the interview and did not have difficulty remembering recent or remote events. Patient states that he has been tired all the time and needs large quantities of caffeine to stay awake and "happy", he also reports poor sleep during this time period but states that he usually sleeps 8-9 hours a night and has no difficulty falling asleep or with early awakenings, he simply does not feel rested. Patient states that he has had past episodes where he was awake for many days and felt as though he had plenty of energy, although he conflicts with his earlier report involving needing large quantities of caffeine recently as he says his last "up" period was less than 1 week ago. Patient felt it best if he came to the ED for stabilization and to be restarted on medications and now that he is here feels "much better already"" CONSULTANTS INVOLVED: none TREATMENT AND PROGRESS ON THE UNIT : started on Wellbutrin 75mg daily; added 100mg AM dose of Seroquel for bipolarity/anxiety; patient improved and felt more stable, no SI/HI/AVH on discharge or throughout stay; decreased anxiety HOSPITAL COURSE: Patient was admitted due to feeling "unsafe" at home and to be started on medications as he had been non-compliant with treatment due to sexual dysfunction. On the morning after admission the patient stated that he felt better already and was interested in engaging in groups. He was started on Wellbutrin for his depression which he tolerated without noticeable side effects. He reported improved mood after 2 days and felt that he was ready to go home. Patient observed to be appropriately interacting within groups and to be chatting with other patients during free time. He became irritable after another patient came to the unit who was very demanding of attention from staff and patients. It was at this time that began to request to go home. Patient's case repairer came for a meeting at which point the patient stated that he would not be compliant with the morning dose of Seroquel due to increased fatigue. Patient was discharged to home with plan to follow-up with his regular providers. DISCHARGE ASSESSMENT: 31 year old man with diagnoses as above. He demonstrates poor coping skills when exposed to stress and difficulty interacting with peers appropriately. The patient has a known history of non-compliance in the outpatient setting and appears to seek inpatient admission partially to socialize. His mood was notably labile over the course of several days and he displayed poor frustration tolerance when redirected. At this time there are no safety concerns as patient has not had clear SI throughout his stay. Patient is appropriate for discharge with outpatient follow-up. MENTAL STATUS EXAMINATION ON DISCHARGE: 31 year old man who appears the stated age; dressed in [facility]; minimal eye contact; minimally interactive with interview. Speech is fluent, with regular rate and rhythm, patient displays an angry/hostile tone; thought process are logical, goal-oriented, and linear; his associations appear intact with appropriate abstraction; denies SI/HI/AVH, no evidence of paranoia or delusions, does not appear internally preoccupied; Mood is "good", affect is dysphoric, blunted range, incongruent to stated mood; Insight is poor, judgement is fair. MEDICATIONS ON DISCHARGE: Wellbutrin 75mg daily Seroquel 200mg nightly PLAN/FOLLOWUP ARRANGEMENTS: discharge to home, patient did not want transportation to pharmacy to pickling solution maker medications; has case repairer who provides regular support; will follow-up with regular outpatient providers. The amount of time spent in the coordination of care for this patient was approximately 30 minutes. Vital Signs/I&Os Vital Signs Date Time Temp Pulse Resp B/P (MAP) Pulse Ox O2 Delivery O2 Flow Rate FiO2 05/25/17 07:00 96.7 77 18 106/100 (102) 05/22/17 06:41 Room Air 05/21/17 14:52 97 Medications Scheduled Bupropion HCl (Bupropion HCl) 75 Mg Tab, 75 MG PO QAM for DEPRESSION, #7 Hydroxyzine HCl (Hydroxyzine HCl) 50 Mg Tab, 100 MG PO TID for ANXIETY/AGITATION , #42 Nicotine (Nicotine Transdermal Syst) 21 Mg/24 Hr Dis, 1 PATCH TD DAILY for SMOKING CESSATION, #7 Quetiapine Fumerate (Quetiapine Fumarate) 100 Mg Tab, 200 MG PO QHS, (Reported) Allergies Coded Allergies: Clonidine (Verified Adverse Reaction, Mild, 05/21/17) IRRITABLE MARLO HOPE MD May 25, 2017 14:41
== END 2017-05-25 14:00 | disposition home or self-care (01) | DRG 752 ==
LOC: M ED 10:06 → M PSY 14:55
PROVIDERS: ADMIT Psychiatry & Neurology Psychiatry; ATTEND Psychiatry & Neurology Psychiatry
DX: F60.81 Narcissistic personality disorder (principal); F32.0 Major depressive disorder, single episode, mild; Z91.14 Patient's other noncompliance with medication regimen; F90.9 Attention-deficit hyperactivity disorder, unspecified type; Z59.0 Homelessness; Z56.0 Unemployment, unspecified; Z79.899 Other long term (current) drug therapy; Z88.8 Allergy status to other drugs, medicaments and biological substances; F17.210 Nicotine dependence, cigarettes, uncomplicated; F60.3 Borderline personality disorder

== ENCOUNTER 2017-11-27 12:14 | Inpatient (IN) | payer MEDICAID, OTHER ==
[2017-11-27 13:16] LABS: HEMATOCRIT 44.1 % (42.0-52.0); HEMOGLOBIN 15.1 g/dl (14.0-18.0); MEAN CORPUSCULAR HEMOGLOBIN 29.7 pg (27.0-33.0); MEAN CORPUSCULAR HGB CONC 34.2 g/dl (32.0-36.5); MEAN CORPUSCULAR VOLUME 86.8 fl (80.0-96.0); PLATELET COUNT, AUTOMATED 270 10^3/uL (150-450); RED BLOOD COUNT 5.08 10^6/uL (4.30-6.10); RED CELL DISTRIBUTION WIDTH 12.8 % (11.5-14.5); WHITE BLOOD COUNT 10.1 10^3/uL (4.0-10.0)
[2017-11-27 13:46] LABS: AMPHETAMINES LEVEL URINE NEGATIVE (NEGATIVE); BARBITURATES URINE NEGATIVE (NEGATIVE); BENZODIAZEPINES URINE NEGATIVE (NEGATIVE); CANNABINOIDS URINE NEGATIVE (NEGATIVE); COCAINE METABOLITE URINE NEGATIVE (NEGATIVE); METHADONE URINE NEGATIVE (NEGATIVE); OPIATES URINE NEGATIVE (NEGATIVE); PHENCYCLIDINE URINE NEGATIVE (NEGATIVE)
[2017-11-27 13:56] LABS: ACETAMINOPHEN LEVEL < 2.0 UG/ML (10.0-30.0); ALBUMIN 4.4 GM/DL (3.2-5.2); ALBUMIN/GLOBULIN RATIO 1.42 (1.00-1.93); ALKALINE PHOSPHATASE 74 U/L (45-117); ALT/SGPT 25 U/L (12-78); ANION GAP 8 MEQ/L (8-16); AST/SGOT 13 U/L (7-37); BILIRUBIN,DIRECT 0.1 MG/DL (0.0-0.2); BILIRUBIN,TOTAL 0.4 MG/DL (0.2-1.0); BLOOD UREA NITROGEN 11 MG/DL (7-18); CARBON DIOXIDE LEVEL 28 MEQ/L (21-32); CHLORIDE LEVEL 106 MEQ/L (98-107); CREATININE FOR GFR 0.82 MG/DL (0.70-1.30); ETHYL ALCOHOL (ETHANOL) < 0.003 % (0.000-0.010); GLOMERULAR FILTRATION RATE > 60.0 (>60); GLUCOSE, FASTING 121 MG/DL (70-100); POTASSIUM SERUM 3.5 MEQ/L (3.5-5.1); SALICYLATE LEVEL 4.7 MG/DL (5.0-30.0); SODIUM LEVEL 142 MEQ/L (136-145); THYROID STIMULATING HORMONE 0.372 uIU/ML (0.358-3.740); TOTAL PROTEIN 7.5 GM/DL (6.4-8.2)
[2017-11-27] MEDS ORDERED: MAALOX 30 ML SUSP *UDC PO (23:15)
[2017-11-27] MEDS ORDERED: MOM 30ML SUSPENSION UDC PO (23:15)
[2017-11-28] MEDS: NICOTINE 21MG/24HR 1 EA TRANSDERMAL TD (08:18)
[2017-11-28] MEDS: SERTRALINE HCL 50 MG TAB PO (13:23)
[2017-11-28] MEDS: QUEtiapine FUMARATE 12.5 MG HALF-TAB PO (16:30)
[2017-11-28] MEDS: QUEtiapine FUMARATE 25 MG TAB PO (21:57)
[2017-11-28] MEDS: traZODone 50 MG TAB PO (21:57)
[2017-11-29] MEDS: SERTRALINE HCL 50 MG TAB PO (08:07)
[2017-11-29] MEDS: QUEtiapine FUMARATE 12.5 MG HALF-TAB PO (08:07)
[2017-11-29] MEDS: NICOTINE 21MG/24HR 1 EA TRANSDERMAL TD (09:00)
[2017-11-29] MEDS: hydrOXYzine 50 MG TAB PO (16:59)
[2017-11-29] MEDS: QUEtiapine FUMARATE 25 MG TAB PO (21:43)
[2017-11-29] MEDS: traZODone 50 MG TAB PO (21:44)
[2017-11-30] MEDS: SERTRALINE HCL 50 MG TAB PO (08:53)
[2017-11-30] MEDS: QUEtiapine FUMARATE 12.5 MG HALF-TAB PO (08:53)
[2017-11-30] MEDS: NICOTINE 21MG/24HR 1 EA TRANSDERMAL TD (08:54)
[2017-11-30] MEDS: hydrOXYzine 50 MG TAB PO (19:05)
[2017-11-30] MEDS: DOXEPIN 25 MG CAP PO (21:35)
[2017-11-30] MEDS: QUEtiapine FUMARATE 25 MG TAB PO (21:35)
[2017-12-01] MEDS: NICOTINE 21MG/24HR 1 EA TRANSDERMAL TD (09:07)
[2017-12-01] MEDS: SERTRALINE HCL 50 MG TAB PO (09:07)
[2017-12-01] MEDS: QUEtiapine FUMARATE 12.5 MG HALF-TAB PO (09:07)
[2017-12-01] MEDS: ACETAMINOPHEN TAB 650MG DOSE (2X325MG) PO (19:00)
[2017-12-01] MEDS: QUEtiapine FUMARATE 25 MG TAB PO (21:42)
[2017-12-02] MEDS: NICOTINE 21MG/24HR 1 EA TRANSDERMAL TD (08:11)
[2017-12-02] MEDS: QUEtiapine FUMARATE 12.5 MG HALF-TAB PO (08:11)
[2017-12-02] MEDS: SERTRALINE HCL 50 MG TAB PO (08:11)
[2017-12-02] MEDS: hydrOXYzine 50 MG TAB PO (22:03)
[2017-12-02] MEDS: QUEtiapine FUMARATE 25 MG TAB PO (22:03)
[2017-12-03] MEDS: SERTRALINE HCL 50 MG TAB PO (08:04)
[2017-12-03] MEDS: QUEtiapine FUMARATE 12.5 MG HALF-TAB PO (08:04)
[2017-12-03] MEDS: hydrOXYzine 50 MG TAB PO ×2 (08:04→21:45)
[2017-12-03] MEDS: NICOTINE 21MG/24HR 1 EA TRANSDERMAL TD (08:05)
[2017-12-03] MEDS: QUEtiapine FUMARATE 25 MG TAB PO (21:45)
[2017-12-04] MEDS: QUEtiapine FUMARATE 12.5 MG HALF-TAB PO (08:21)
[2017-12-04] MEDS: hydrOXYzine 50 MG TAB PO (08:21)
[2017-12-04] MEDS: NICOTINE 21MG/24HR 1 EA TRANSDERMAL TD (08:21)
[2017-12-04] MEDS: SERTRALINE HCL 25 MG TABLET PO (08:21)
== END 2017-12-04 14:45 | disposition home or self-care (01) | DRG 885 ==
LOC: M ED 12:14 → M ED INP 16:54 → M PSY 23:00
DX: F33.1 Major depressive disorder, recurrent, moderate (principal); F60.81 Narcissistic personality disorder; Z91.14 Patient's other noncompliance with medication regimen; Z91.19 Patient's noncompliance with other medical treatment and regimen; Z79.899 Other long term (current) drug therapy; Z88.8 Allergy status to other drugs, medicaments and biological substances; F17.210 Nicotine dependence, cigarettes, uncomplicated; Z59.0 Homelessness; Z91.5 Personal history of self-harm

== ENCOUNTER 2017-12-23 06:12 | Emergency (ER) | payer OTHER, MEDICAID ==
[2017-12-23] MEDS: IBUPROFEN 800 MG TAB PO (06:48)
[2017-12-23] MEDS: AMOXICILLIN 500 MG CAP PO (06:48)
== END 2017-12-23 07:12 | disposition home or self-care (01) ==
LOC: M ED 06:12
DX: K02.9 Dental caries, unspecified (principal); K08.89 Other specified disorders of teeth and supporting structures; F31.9 Bipolar disorder, unspecified; F41.9 Anxiety disorder, unspecified; F90.9 Attention-deficit hyperactivity disorder, unspecified type; F17.210 Nicotine dependence, cigarettes, uncomplicated; Z79.899 Other long term (current) drug therapy; Z88.8 Allergy status to other drugs, medicaments and biological substances
CPT/HCPCS: 99283

== ENCOUNTER 2018-07-23 14:27 | Inpatient (IN) | payer MEDICAID, OTHER ==
[2018-07-23 15:28] LABS: HEMATOCRIT 44.2 % (42.0-52.0); HEMOGLOBIN 15.2 g/dl (13.5-17.5); MEAN CORPUSCULAR HEMOGLOBIN 30.2 pg (27.0-33.0); MEAN CORPUSCULAR HGB CONC 34.4 g/dl (32.0-36.5); MEAN CORPUSCULAR VOLUME 87.7 fl (80.0-96.0); PLATELET COUNT, AUTOMATED 287 10^3/uL (150-450); RED BLOOD COUNT 5.04 10^6/uL (4.30-6.10)
[2018-07-23 16:00] LABS: ACETAMINOPHEN LEVEL < 2.0 UG/ML (10.0-30.0); ALBUMIN 4.3 GM/DL (3.2-5.2); ALBUMIN/GLOBULIN RATIO 1.23 (1.00-1.93); ALKALINE PHOSPHATASE 100 U/L (45-117); ALT/SGPT 39 U/L (12-78); ANION GAP 8 MEQ/L (8-16); AST/SGOT 20 U/L (7-37); BILIRUBIN,DIRECT < 0.1 MG/DL (0.0-0.2); BILIRUBIN,TOTAL 0.3 MG/DL (0.2-1.0); BLOOD UREA NITROGEN 6 MG/DL (7-18); CALCIUM LEVEL 8.8 MG/DL (8.5-10.1); CARBON DIOXIDE LEVEL 26 MEQ/L (21-32); CHLORIDE LEVEL 108 MEQ/L (98-107); CREATININE FOR GFR 0.79 MG/DL (0.70-1.30); ETHYL ALCOHOL (ETHANOL) < 0.003 % (0.000-0.010); GLOMERULAR FILTRATION RATE > 60.0 (>60); GLUCOSE, FASTING 84 MG/DL (70-100); POTASSIUM SERUM 3.5 MEQ/L (3.5-5.1); SODIUM LEVEL 142 MEQ/L (136-145); THYROID STIMULATING HORMONE 0.606 uIU/ML (0.358-3.740); TOTAL PROTEIN 7.8 GM/DL (6.4-8.2)
[2018-07-23 16:05] LABS: AMPHETAMINES LEVEL URINE NEGATIVE (NEGATIVE); BARBITURATES URINE NEGATIVE (NEGATIVE); BENZODIAZEPINES URINE NEGATIVE (NEGATIVE); CANNABINOIDS URINE POSITIVE (NEGATIVE); COCAINE METABOLITE URINE NEGATIVE (NEGATIVE); METHADONE URINE NEGATIVE (NEGATIVE); OPIATES URINE NEGATIVE (NEGATIVE); PHENCYCLIDINE URINE NEGATIVE (NEGATIVE)
[2018-07-23] MEDS ORDERED: MAALOX 30 ML SUSP *UDC PO (22:15)
[2018-07-23] MEDS ORDERED: MOM 30ML SUSPENSION UDC PO (22:15)
[2018-07-23] MEDS: traZODone 50 MG TAB PO (22:27)
[2018-07-24] MEDS: CitaloPRAM (CeleXA) 10 MG TABLET PO (13:41)
[2018-07-24] MEDS: CHLORHEXIDINE ORAL RINSE 0.12%/15ML 120ML BOTTLE MT ×2 (14:39→18:30)
[2018-07-24] MEDS: traZODone 50 MG TAB PO (20:59)
[2018-07-25] MEDS: SERTRALINE HCL 50 MG TAB PO (08:23)
[2018-07-25] MEDS: CHLORHEXIDINE ORAL RINSE 0.12%/15ML 120ML BOTTLE MT ×3 (10:12→18:10)
[2018-07-25] MEDS: ACETAMINOPHEN TAB 650MG DOSE (2X325MG) PO (21:10)
[2018-07-25] MEDS: traZODone 50 MG TAB PO (21:10)
[2018-07-26] MEDS: ACETAMINOPHEN TAB 650MG DOSE (2X325MG) PO (06:33)
[2018-07-26] MEDS: SERTRALINE HCL 50 MG TAB PO (08:25)
[2018-07-26] MEDS: CHLORHEXIDINE ORAL RINSE 0.12%/15ML 120ML BOTTLE MT ×3 (08:25→17:39)
[2018-07-26] MEDS: guaiFENesin ER 600 MG TAB PO ×2 (10:25→21:26)
[2018-07-26] MEDS: traZODone 50 MG TAB PO (21:26)
[2018-07-27] MEDS: SERTRALINE HCL 25 MG TABLET PO (08:17)
[2018-07-27] MEDS: guaiFENesin ER 600 MG TAB PO ×2 (08:17→20:09)
[2018-07-27] MEDS: CHLORHEXIDINE ORAL RINSE 0.12%/15ML 120ML BOTTLE MT ×3 (08:17→18:06)
[2018-07-27] MEDS: NICOTINE POLACRILEX 2 MG GUM PO (13:29)
[2018-07-27] MEDS: ACETAMINOPHEN TAB 650MG DOSE (2X325MG) PO (20:10)
[2018-07-27] MEDS: traZODone 50 MG TAB PO (21:43)
[2018-07-28] MEDS: ACETAMINOPHEN TAB 650MG DOSE (2X325MG) PO (07:17)
[2018-07-28] MEDS: CHLORHEXIDINE ORAL RINSE 0.12%/15ML 120ML BOTTLE MT ×3 (08:30→17:56)
[2018-07-28] MEDS: guaiFENesin ER 600 MG TAB PO ×2 (09:33→21:31)
[2018-07-28] MEDS: SERTRALINE HCL 25 MG TABLET PO (09:33)
[2018-07-28] MEDS: NICOTINE POLACRILEX 2 MG GUM PO (16:15)
[2018-07-28] MEDS: traZODone 50 MG TAB PO (21:32)
[2018-07-28] MEDS: PRAZOSIN 1 MG CAP PO (21:32)
[2018-07-29] MEDS: guaiFENesin ER 600 MG TAB PO ×2 (08:50→21:19)
[2018-07-29] MEDS: SERTRALINE HCL 25 MG TABLET PO ×2 (08:50→11:41)
[2018-07-29] MEDS: CHLORHEXIDINE ORAL RINSE 0.12%/15ML 120ML BOTTLE MT ×3 (08:50→18:01)
[2018-07-29] MEDS: traZODone 50 MG TAB PO (21:19)
[2018-07-29] MEDS: PRAZOSIN 1 MG CAP PO (21:19)
[2018-07-29] MEDS: ACETAMINOPHEN TAB 650MG DOSE (2X325MG) PO (21:21)
[2018-07-30] MEDS: guaiFENesin ER 600 MG TAB PO ×2 (09:07→21:05)
[2018-07-30] MEDS: SERTRALINE 100 MG TAB PO (09:07)
[2018-07-30] MEDS: CHLORHEXIDINE ORAL RINSE 0.12%/15ML 120ML BOTTLE MT ×3 (09:07→17:58)
[2018-07-30] MEDS: ARIPiprazole 2 MG TAB PO (09:07)
[2018-07-30] MEDS: ACETAMINOPHEN TAB 650MG DOSE (2X325MG) PO ×2 (14:28→21:36)
[2018-07-30] MEDS: traZODone 50 MG TAB PO (21:05)
[2018-07-30] MEDS: PRAZOSIN 1 MG CAP PO (21:06)
[2018-07-30] MEDS: NICOTINE POLACRILEX 2 MG GUM PO (21:35)
[2018-07-31] MEDS: SERTRALINE 100 MG TAB PO (08:09)
[2018-07-31] MEDS: guaiFENesin ER 600 MG TAB PO (08:09)
[2018-07-31] MEDS: CHLORHEXIDINE ORAL RINSE 0.12%/15ML 120ML BOTTLE MT ×2 (08:09→13:14)
[2018-07-31] MEDS: ARIPiprazole 2 MG TAB PO (08:09)
== END 2018-07-31 13:45 | disposition home or self-care (01) | DRG 751 ==
LOC: M PSY 07-24 00:24 → M ED 14:27 → M ED INP 22:03 → M PSY 07-24 14:16
DX: F33.1 Major depressive disorder, recurrent, moderate (principal); F60.3 Borderline personality disorder; G47.00 Insomnia, unspecified; Z91.5 Personal history of self-harm; Z87.891 Personal history of nicotine dependence; Z59.0 Homelessness; Z88.8 Allergy status to other drugs, medicaments and biological substances

== ENCOUNTER 2018-09-02 13:38 | Emergency (ER) | payer MEDICAID ==
[2018-09-02] MEDS: NAPROXEN 250 MG TAB PO (14:13)
== END 2018-09-02 15:20 | disposition home or self-care (01) ==
LOC: M ED 13:38
DX: S86.812A Strain of other muscle(s) and tendon(s) at lower leg level, left leg, initial encounter (principal); I10 Essential (primary) hypertension; F90.9 Attention-deficit hyperactivity disorder, unspecified type
CPT/HCPCS: 93971

== ENCOUNTER 2018-12-21 20:01 | Emergency (ER) | payer MEDICAID ==
[~2018-12-21] VITALS: Ht 162.6 cm; Wt 77.3 kg
[~2018-12-21 20:01] MED LIST changes: +ADDE25CA PO; +AMOX500C PO; +AMPHETAMINE PO; +ARIP2TAB PO; +BUPR75TA5 PO; -CLON1TAB PO; +CLON1TAB8 PO; +CYCL10TA PO; +GABA600T4 PO; +HYDR50TA70; +HYDRO50TAB PO; +IBUP-1022 PO; +IBUP80TA PO; +MINI1CAP PO; +QUET1TAB10; +QUET1TAB7 PO; +SERO200T PO; +SERT-138 PO; +SERT-155; +SERT25TA PO; +TRAZO50TA PO
[2018-12-21] MEDS ORDERED: IBUP-1022 PO (20:57)
[2018-12-21] MEDS ORDERED: ADACEL/BOOSTRIX VACCINE (DIPHTH/PERTUSS/ACELL/TETANUS)0.5ML SYR (90715) IM ONE (21:00)
[2018-12-21] MEDS ORDERED: NORCO 5/325MG TABLET (BULK FOR ED) PO ONE (21:00)
[2018-12-21 21:37] VITALS: BP 143/90
== END 2018-12-21 21:39 | disposition home or self-care (01) ==
LOC: M ED 20:01
DX: T23.291A Burn of second degree of multiple sites of right wrist and hand, initial encounter (principal); X12.XXXA Contact with other hot fluids, initial encounter; Y92.009 Unspecified place in unspecified non-institutional (private) residence as the place of occurrence of the external cause; Y93.G3 Activity, cooking and baking; F17.200 Nicotine dependence, unspecified, uncomplicated; Z88.8 Allergy status to other drugs, medicaments and biological substances; Z79.899 Other long term (current) drug therapy

== ENCOUNTER 2018-12-23 04:32 | Emergency (ER) | payer MEDICAID ==
[~2018-12-23] VITALS: Ht 162.6 cm; Wt 81.8 kg
[2018-12-23] MEDS ORDERED: TRAZ-163 (04:40)
[2018-12-23] MEDS ORDERED: QUET5TAB (04:40)
[2018-12-23] MEDS ORDERED: NICOINH (04:40)
[2018-12-23] MEDS ORDERED: IBUP-1022 PO (07:25)
[2018-12-23] MEDS ORDERED: BACI500O8 TOP (07:25)
[2018-12-23] MEDS ORDERED: HYDR-3713 PO (07:25)
[2018-12-23] MEDS ORDERED: IBUPROFEN 800 MG TAB PO ONE (07:30)
[2018-12-23 07:34] VITALS: BP 133/85
== END 2018-12-23 07:45 | disposition home or self-care (01) ==
LOC: M ED 04:32
DX: Z48.00 Encounter for change or removal of nonsurgical wound dressing (principal); T23.221D Burn of second degree of single right finger (nail) except thumb, subsequent encounter; X58.XXXD Exposure to other specified factors, subsequent encounter; Z79.899 Other long term (current) drug therapy

== ENCOUNTER 2018-12-26 15:24 | Emergency (ER) | payer MEDICAID, OTHER ==
[~2018-12-26] VITALS: Ht 162.6 cm; Wt 97.0 kg
[~2018-12-26 15:24] MED LIST changes: +BACI500O8 TOP; +HYDR-3713 PO; +NICOINH; +QUET5TAB; +TRAZ-163
[2018-12-26] MEDS ORDERED: PRAZ1CAP (15:33)
[2018-12-26 16:46] VITALS: BP 105/53
[2018-12-26] MEDS ORDERED: BACT800T5 PO (17:15)
[2018-12-26] MEDS ORDERED: BACTRIM 160MG/800MG DS TAB PO ONE (17:30)
== END 2018-12-26 17:41 | disposition home or self-care (01) ==
LOC: M ED 15:24
DX: Z48.00 Encounter for change or removal of nonsurgical wound dressing (principal); T23.221D Burn of second degree of single right finger (nail) except thumb, subsequent encounter; T23.211D Burn of second degree of right thumb (nail), subsequent encounter; X58.XXXD Exposure to other specified factors, subsequent encounter; F17.200 Nicotine dependence, unspecified, uncomplicated; I10 Essential (primary) hypertension; F41.9 Anxiety disorder, unspecified; F32.9 Major depressive disorder, single episode, unspecified; F90.9 Attention-deficit hyperactivity disorder, unspecified type; G47.00 Insomnia, unspecified; Z88.8 Allergy status to other drugs, medicaments and biological substances; Z79.899 Other long term (current) drug therapy; Z79.2 Long term (current) use of antibiotics

== ENCOUNTER → 2019-01-01 | Outpatient (CLI) | payer MEDICAID ==
[~2019-01-01] MED LIST changes: +BACT800T5 PO; +PRAZ1CAP
== END ==
LOC: M OUTALCOH 12:50
PROVIDERS: ATTEND Psychiatry & Neurology Psychiatry
DX: F12.20 Cannabis dependence, uncomplicated (principal); F15.20 Other stimulant dependence, uncomplicated

== ENCOUNTER 2019-01-14 12:58 | Outpatient (RCR) | payer MEDICAID ==
[~2019-01-14 12:58] MED LIST changes: +ARIP1TAB4 PO; -ARIP2TAB PO; -SERT25TA PO; +SERT25TA85 PO; -TRAZ-163; +TRAZ-163 PO
[2019-01-16] MEDS ORDERED: BACI50OI TOP (20:33)
[2019-01-24] MEDS ORDERED: PARO20TA3 PO (10:36)
[2019-01-24] MEDS ORDERED: BUSP15TA47 PO (10:36)
[2019-01-24] MEDS ORDERED: QUET5TAB PO (10:36)
[2019-01-24] MEDS ORDERED: TRAZO50TA PO (10:36)
== END 2019-02-11 ==
LOC: M OUTALCOH 12:58
PROVIDERS: ATTEND Psychiatry & Neurology Psychiatry
DX: F15.20 Other stimulant dependence, uncomplicated (principal); F12.20 Cannabis dependence, uncomplicated; F17.200 Nicotine dependence, unspecified, uncomplicated

== ENCOUNTER → 2019-02-06 | Outpatient (REF) | payer MEDICAID ==
[~2019-02-06] MED LIST changes: +BACI50OI TOP; +BUSP15TA47 PO; +PARO20TA3 PO
== END ==
LOC: M SFHCPLAZ 14:37
DX: Z78.9 Other specified health status (principal)

== ENCOUNTER 2021-04-07 17:06 | Inpatient (IN) | payer MEDICAID, OTHER ==
[~2021-04-07] VITALS: Ht 162.6 cm; Wt 84.2 kg
[~2021-04-07 17:06] MED LIST changes: +AMPH1CAP16 PO; -AMPH20CA PO; +CYCL-707 PO; -CYCL10TA PO; +HYDR1TAB33 PO; -HYDRO50TAB PO; +QUET100T2 PO; -QUET1TAB10; -QUET1TAB7 PO; -QUET1TAB8 PO; +QUET25TA3 PO; +QUET300T2; +QUET50TA3; +QUET50TA3 PO; -QUET5TAB; -QUET5TAB PO; -SERT-155; +SERT50TA29; -TRAZ-163 PO; +TRAZ-257 PO; +TRAZ1TAB10 PO; -TRAZO50TA PO
[2021-04-07 18:12] LABS: HEMATOCRIT 47.1 % (42.0-52.0); HEMOGLOBIN 15.8 g/dl (13.5-17.5); MEAN CORPUSCULAR HEMOGLOBIN 30.4 pg (27.0-33.0); MEAN CORPUSCULAR HGB CONC 33.5 g/dl (32.0-36.5); MEAN CORPUSCULAR VOLUME 90.8 fl (80.0-96.0); PLATELET COUNT, AUTOMATED 276 10^3/uL (150-450); RED BLOOD COUNT 5.19 10^6/uL (4.30-6.10); WHITE BLOOD COUNT 9.3 10^3/uL (4.0-10.0)
[2021-04-07 18:40] LABS: AMPHETAMINES LEVEL URINE NEGATIVE (NEGATIVE); BARBITURATES URINE NEGATIVE (NEGATIVE); BENZODIAZEPINES URINE NEGATIVE (NEGATIVE); CANNABINOIDS URINE POSITIVE (NEGATIVE); COCAINE METABOLITE URINE NEGATIVE (NEGATIVE); METHADONE URINE NEGATIVE (NEGATIVE); OPIATES URINE NEGATIVE (NEGATIVE); PHENCYCLIDINE URINE NEGATIVE (NEGATIVE)
[2021-04-07 18:42] LABS: ACETAMINOPHEN LEVEL < 2.0 UG/ML (10.0-30.0); ALBUMIN 4.1 GM/DL (3.2-5.2); ALT/SGPT 39 U/L (12-78); BILIRUBIN,DIRECT 0.2 MG/DL (0.0-0.2); BILIRUBIN,TOTAL 0.5 MG/DL (0.2-1.0); BLOOD UREA NITROGEN 10 MG/DL (7-18); CALCIUM LEVEL 8.9 MG/DL (8.5-10.1); CARBON DIOXIDE LEVEL 31 MEQ/L (21-32); CHLORIDE LEVEL 107 MEQ/L (98-107); CREATININE FOR GFR 0.83 MG/DL (0.70-1.30); ETHYL ALCOHOL (ETHANOL) 0.005 % (0.000-0.010); GLOMERULAR FILTRATION RATE > 60.0 (>60); GLUCOSE, FASTING 98 MG/DL (70-100); POTASSIUM SERUM 3.4 MEQ/L (3.5-5.1); SODIUM LEVEL 141 MEQ/L (136-145); THYROID STIMULATING HORMONE 0.607 uIU/ML (0.358-3.740); TOTAL PROTEIN 7.4 GM/DL (6.4-8.2)
[2021-04-07 22:41] LABS: RSV AMPLIFICATION NEGATIVE (NEGATIVE)
[2021-04-07] MEDS ORDERED: MAALOX 30 ML SUSP *UDC PO PRN (23:00)
[2021-04-07] MEDS ORDERED: ACETAMINOPHEN TAB 650MG DOSE (2X325MG) PO PRN (23:00)
[2021-04-07] MEDS ORDERED: MOM 30ML SUSPENSION UDC PO PRN (23:00)
[2021-04-08 00:15] VITALS: BP 150/93
[2021-04-08] MEDS: OLANZapine ORAL DISINTEGRATING TAB 5MG PO PRN ×2 (00:22→21:36)
[2021-04-08 06:00] VITALS: BP 169/86
[2021-04-08] MEDS: SERTRALINE HCL 50 MG TAB PO SCH (09:13)
[2021-04-08] MEDS: NICOTINE 21MG/24HR 1 EA TRANSDERMAL TD SCH (09:13)
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
--- NOTE | 2021-04-08 15:57 | HPEPDOC ---
General Date of Admission Apr 07, 2021 at 17:07 Date of Service: Apr 08, 2021 Chief Complaint The patient is a 35-year-old male admitted with a reason for visit of Unspecified Depressive D/O. Source: Patient History of Present Illness Patient is 35 years old male with past medical history of bipolar disorder, depression, anxiety presented hospital after suicidal ideation. He reported suicidal statement that he was going to jump off the bridge to the ED. Patient self-presented to the hospital reporting that he has been having suicidal ideations for several weeks. He reports that he has been feeling depressed, anxious, suicidal, feeling worthless, hopeless and complaining of poor sleep and poor appetite. During my my interview patient denies fever, chills, nausea, vomiting, diarrhea or dysuria Home Medications No Active Prescriptions or Reported Meds Allergies Coded Allergies: clonidine (Verified Adverse Reaction, Mild, 01/16/19) Past Medical History Medical History bipolar disorder, depression, anxiety Family History Patient did not provide family history Social History * Smoker: current smoker Alcohol: occationally Drugs: marijuana A-FIB/CHADSVASC A-FIB History Current/History of A-Fib/PAF?: No Current PO Anticoag Therapy: No Review of Systems Constitutional: Denies: Chills, Fever Eyes: Denies: Pain ENT: Denies: Head Aches Skin: Denies: Rash, Lesions Pulmonary: Denies: Dyspnea Cardiovascular: Denies: Chest Pain Gastrointestinal: Denies: Nausea Genitourinary: Denies: Dysuria Hematologic: Denies: Bruising Endocrine: Denies: Polydipsia, Polyphagia Musculoskeletal: Denies: Neck Pain Neurological: Denies: Weakness Psych: Reports: Anxiety, Depression Physical Examination General Exam: Positive: Alert Eye Exam: Positive: PERRLA ENT Exam: Positive: Atraumatic Neck Exam: Positive: Supple; Negative: JVD Chest Exam: Positive: Clear to auscultation Heart Exam: Positive: Rate Normal Telemetry: Positive: No significant arrhythmia Abdomen Exam: Positive: Normal bowel sounds Extremity Exam: Negative: Cyanosis Skin Exam: Positive: Nl turgor and temperature Neuro Exam: Positive: Normal Gait Psych Exam: Positive: Oriented x 3 Vital Signs Vital Signs Date Time Temp Pulse Resp B/P (MAP) Pulse Ox O2 Delivery O2 Flow Rate FiO2 04/08/21 06:00 97.1 98 18 169/86 (113) 100 04/08/21 00:15 Room Air Laboratory Data Labs 24H Laboratory Tests 2 04/07/21 17:48: Nucleated Red Blood Cells % (auto) 0.0, Anion Gap 3L, Glomerular Filtration Rate > 60.0, Calcium Level 8.9, Total Bilirubin 0.5, Direct Bilirubin 0.2, Aspartate Amino Transf (AST/SGOT) 16, Alanine Aminotransferase (ALT/SGPT) 39, Alkaline Phosphatase 82, Total Protein 7.4, Albumin 4.1, Albumin/Globulin Ratio 1.2, Thyroid Stimulating Hormone (TSH) 0.607, Salicylates Level 4.0L, Acetaminophen Level < 2.0L, Ethyl Alcohol Level 0.005 04/07/21 17:51: Urine Opiates Screen NEGATIVE, Urine Methadone Screen NEGATIVE, Urine Bar biturates Screen NEGATIVE, Urine Phencyclidine Screen NEGATIVE, Urine Amphetamines Screen NEGATIVE, Urine Benzodiazepines Screen NEGATIVE, Urine Cocaine Metabolite Screen NEGATIVE, Urine Cannabinoids Screen POSITIVEH 04/07/21 21:44: Coronavirus (COVID-19)(PCR) NEGATIVE, Influenza Type A (RT-PCR) NEGATIVE, Influenza Type B (RT-PCR) NEGATIVE, Respiratory Syncytial Virus (PCR) NEGATIVE CBC/BMP Laboratory Tests 04/07/21 17:48 Assessment/Plan Patient is 35 years old male with past medical history of bipolar disorder, depression, anxiety presented hospital after suicidal ideation. He reported suicidal statement that he was going to jump off the bridge to the ED. Patient self-presented to the hospital reporting that he has been having suicidal ideations for several weeks. He reports that he has been feeling depressed, anxious, suicidal, feeling worthless, hopeless and complaining of poor sleep and poor appetite. During my my interview patient denies fever, chills, nausea, vomiting, diarrhea or dysur Problems (1) Suicidal ideations Status: Acute Problem Text: Deferred treatment to psych team Plan / VTE VTE Prophylaxis Ordered?: No VTE Exclusion Mechanical Proph: Low Risk for VTE ELIZBAETH ERVIN DO Apr 08, 2021 15:57
[2021-04-08 16:10] VITALS: BP 125/74
[2021-04-08] MEDS: traZODone 50 MG TAB PO PRN (21:36)
[2021-04-09 06:17] VITALS: BP 144/84
[2021-04-09] MEDS: SERTRALINE HCL 50 MG TAB PO SCH (08:25)
[2021-04-09] MEDS: NICOTINE 21MG/24HR 1 EA TRANSDERMAL TD SCH (09:27)
[2021-04-09 16:35] VITALS: BP 137/87
[2021-04-09] MEDS: traZODone 50 MG TAB PO PRN (22:11)
[2021-04-10 06:21] VITALS: BP 133/84
[2021-04-10] MEDS: SERTRALINE HCL 50 MG TAB PO SCH (08:01)
[2021-04-10] MEDS: NICOTINE 21MG/24HR 1 EA TRANSDERMAL TD SCH (08:01)
[2021-04-10] MEDS: OLANZapine ORAL DISINTEGRATING TAB 5MG PO PRN (08:02)
[2021-04-10 16:47] VITALS: BP 140/72
[2021-04-10] MEDS: traZODone 50 MG TAB PO PRN (22:01)
[2021-04-11 07:06] VITALS: BP 134/89
[2021-04-11] MEDS: SERTRALINE HCL 50 MG TAB PO SCH (08:18)
[2021-04-11] MEDS: NICOTINE 21MG/24HR 1 EA TRANSDERMAL TD SCH (08:19)
--- NOTE | 2021-04-11 08:45 | MHIPN ---
[facility] PROGRESS NOTE DATE: 04/09/2021 This is a video assessment, I am at home, he is in the inpatient psychiatry unit, he is seen in the presence of staff. VITAL SIGNS: Blood pressure 144/84, pulse 67, temperature 96.8. CHIEF COMPLAINT: Feels anxious. SUBJECTIVE: Seen for followup, in the presence of staff. Says feels anxious and depressed, concerned as to his residence, says had some difficulties with sleep, and indicates appetite is fair. MENTAL STATUS EXAMINATION: Somewhat unkempt, cooperative, no agitation, no psychomotor retardation, coherent, but mildly irritable, has some suicidal thoughts, no firm plans, no homicidal ideals or intents, no evidence of any psychosis, cognition grossly intact, judgment and insight remain compromised. ASSESSMENT: Unspecified depressive disorder. Cannabis use disorder. Alcohol use disorder. PLAN: Continue current care, observations, has been on sertraline, at some point this ought to be increased, unclear how regular he has been on it. Will look at increasing the trazodone should difficulties with sleep persist. Further recommendations will be made depending on the clinical picture.
--- NOTE | 2021-04-11 10:56 | MHIPN ---
[facility] PROGR[facility] DATE: 04/10/2021 VITAL SIGNS: Blood pressure 133/84, pulse 57, temperature 98.4. This is a video assessment, he is at the inpatient psychiatry unit, he is seen in the presence of staff, I am at home. CHIEF COMPLAINT: Feels anxious. SUBJECTIVE: Seen for followup. Indicates feels anxious, did not sleep well yesterday, says it was a bit broken, but possibly slept a bit longer than he usually has. Appetite okay. Says is worried about his living conditions, that raises anxieties. MENTAL STATUS EXAMINATION: He is cooperative, coherent, no agitation, no psychomotor retardation, affect restricted but reactive, vague on suicidal thoughts, no firm plans, no homicidal ideas or intents, no evidence of any psychosis. Cognition grossly intact, judgment and insight fair. ASSESSMENT: Unspecified depressive disorder. Cannabis use disorder. PLAN: Continue current care, observations, look at obtaining collateral information, and I would suggest that his residential status is explored, when he sees the systems requirements planner tomorrow. Further recommendations to be made depending on the clinical picture. Meanwhile, will increase the trazodone to help with sleep, will also increase the sertraline.
[2021-04-11] MEDS: OLANZapine ORAL DISINTEGRATING TAB 5MG PO PRN (13:08)
[2021-04-11] MEDS ORDERED: DOCUSATE SODIUM 100MG CAPSULE PO PRN (13:50)
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
[2021-04-11] MEDS: traZODone 50 MG TAB PO PRN (22:30)
[2021-04-12 07:29] VITALS: BP 122/68
[2021-04-12] MEDS: SERTRALINE HCL 25 MG TABLET PO SCH (09:09)
[2021-04-12] MEDS: NICOTINE 21MG/24HR 1 EA TRANSDERMAL TD SCH (09:10)
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
[2021-04-12] MEDS: OLANZapine ORAL DISINTEGRATING TAB 5MG PO PRN (16:36)
[2021-04-12 18:35] VITALS: BP 129/80
[2021-04-12] MEDS: traZODone 50 MG TAB PO PRN (22:10)
[2021-04-13 06:36] VITALS: BP 139/86
[2021-04-13] MEDS: SERTRALINE HCL 25 MG TABLET PO SCH (08:20)
[2021-04-13] MEDS: NICOTINE 21MG/24HR 1 EA TRANSDERMAL TD SCH (08:20)
[2021-04-13] MEDS: hydrOXYzine 25 MG TAB PO PRN (10:35)
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
[2021-04-13 18:31] VITALS: BP 158/87
[2021-04-13] MEDS: QUEtiapine FUMARATE 50MG TAB PO SCH (21:17)
[2021-04-14 06:02] VITALS: BP 108/59
[2021-04-14] MEDS: SERTRALINE HCL 25 MG TABLET PO SCH (09:16)
[2021-04-14] MEDS: hydrOXYzine 25 MG TAB PO PRN (09:16)
[2021-04-14] MEDS: NICOTINE 21MG/24HR 1 EA TRANSDERMAL TD SCH (09:16)
--- NOTE | 2021-04-14 09:58 | MHIPNPDOC ---
[facility] Progress Note Progress Note DATE OF SERVICE: 04/14/21 HISTORY: Patient is a 35 -year-old Single, Unemployed, Domiciled , male, who reports suicidal statement that he was going to jump off the bridge to the ED. Patient self-presented to the hospital reporting that he has been having suicidal ideations for several weeks. He states, "[facility], I am unmedicated and I haven't slept, don't eating, not showering for weeks, there are druggies that have to share a bathroom there are bed bugs. I don't sleep for more than 2-3 hours I don't feel like I slept at all. It is taking its toll on me, it's sad that you don't feel safe in your own house" Patient reports not showering for several weeks, continues to state that he does not like where he lives due to the IV needles in the bathroom, finding people passed on in the bathroom, defecation in the bathroom, not being to make food unless it is microwavable. He states, "It's sad that [facility] puts you there knowing that there are drugs there but you can't do drugs." PER ED REPORT: +SI with plan [place]. PT self presents stating he is overwhelmed and cannot stop thinking about jumping off the bridge next to the boarding house he is staying at. In 2019 PT was found in possession of child pornography on his phone and he is preparing for court to have a disposition. The guilt he feels in regards to this has begun to spike "What kind of a person am I?" He has been staying at the boarding house at [address] [place] [address] via [facility] and he states his room does not lock, there are bedbugs and that the shared shower often has drug paraphernalia. He has been referred to a Lathing Supervisor via the [facility] to assist him with finding more appropriate housing. PT's therapist, Deanna, via the [facility] sees PT regularly but he will not see their medication provider until he shows that he will be consistent with his attendance. Currently PT is not eating/drinking consistently and he is not taking acre of his ADLs. He attends groups at [facility] but then has nothing to do with his time. He states he is socially drinking only which is an improvement for him and that the only drug he uses is weed. He is +SI and cannot CFS at this time. VITAL SIGNS: See below. CURRENT MEDICATIONS: See below. MENTAL STATUS EXAMINATION: Patient is a 35 -year-old Single, Unemployed, Domiciled , male, who reports suicidal statement that he was going to jump off the bridge to the ED. Speech: Is fluid, conversant, normal rate, tone and volume Language skills are intact Thought processes including: linear and goal oriented Thought content: reports decreased depression and moderate anxiety and improved sleep. Denies suicidal/homicidal ideation, planning or intent. Abstract reasoning, and computation: fair Description of associations: denies, none observed Description of abnormal or psychotic thoughts: denies, none observed. Judgment: fair Insight: fair Orientation: alert and oriented to person, place, time and situation Recent and remote memory: intact Attention span and concentration: good Language: expansive Fund of knowledge: average Mood: Decreased Depressed Mood Affect: Flat DIAGNOSES: Diagnoses Unspecified Depressive Disorder Cannabis Use Disorder Borderline Personality Disorder Alcohol Use Disorder History of Non-compliance ASSESSMENT: Patient reports that his sleep was improved but continues to feel that he may be unsafe to leave over the weekend. He is reporting increased anxiety of being discharged tomorrow, feels that he would have increased negative thinking which will result in increased suicidal thinking. States that he feels he would return over the weekend. He reports milder depression but increasingly the closer it gets to leaving. Discussed with him his using coping skills but he states that due to his poor supports and limited coping that he is unable to manage his anxiety. He is requesting to be discharged on Sunday. Patient is compliant with medications. Attending groups. MANAGEMENT PLAN: Continue all medications. Discharge on Sunday TIME SPENT: 25 minutes. Vital Signs Vital Signs Date Time Temp Pulse Resp B/P (MAP) Pulse Ox O2 Delivery O2 Flow Rate FiO2 04/14/21 06:02 97.5 66 18 108/59 (75) 96 Room Air Current Medications Current Medications Medications (Trade) Dose Ordered Sig/Andrea Route PRN Reason Start Time Stop Time Status Last Admin Dose Admin Acetaminophen (Tylenol Tab) 650 mg Q6HP PRN PO HEADACHE or MILD DISCOMFORT 04/07/21 23:00 Al Hydrox/Mg Hydrox/Simethicone (Mylanta) 30 ml Q4HP PRN PO HEARTBURN/INDIGESTION 04/07/21 23:00 Docusate Sodium (Colace) 100 mg BIDP PRN PO CONSTIPATION 04/11/21 13:50 Home Med (Med Rec Complete!) ASDIRECTED XX 04/08/21 00:25 04/08/21 00:28 DC Hydroxyzine HCl (Atarax) 25 mg Q8HP PRN PO ANXIETY 04/07/21 23:00 04/14/21 09:16 Magnesium Hydroxide (Milk Of Magnesia) 30 ml DAILYPRN PRN PO CONSTIPATION 04/07/21 23:00 Nicotine (Nicoderm Cq 21mg) 1 patch DAILY TD 04/08/21 09:00 04/14/21 09:16 Olanzapine (ZyPREXA ZYDIS) 5 mg Q8HP PRN PO AGITATION 04/07/21 23:00 04/12/21 16:36 Quetiapine Fumarate (SEROquel) 50 mg QHS PO 04/13/21 21:00 04/13/21 21:17 Sertraline HCl (Zoloft) 50 mg DAILY PO 04/08/21 09:00 04/11/21 10:00 DC 04/11/21 08:18 Sertraline HCl (Zoloft) 75 mg DAILY PO 04/12/21 09:00 04/14/21 09:16 Trazodone HCl (Desyrel) 50 mg QHSP PRN PO INSOMNIA 04/07/21 23:00 04/10/21 10:13 DC 04/09/21 22:11 Trazodone HCl (Desyrel) 75 mg QHS PRN PO sleep 04/10/21 10:10 04/13/21 10:22 DC 04/12/21 22:10 Allergies Coded Allergies: clonidine (Verified Adverse Reaction, Mild, 01/16/19) DONITA WHITTINGTON NP Apr 14, 2021 09:58
[2021-04-14 17:31] VITALS: BP 138/98
--- NOTE | 2021-04-14 17:40 | IPNPDOC ---
Subjective Date Seen The patient was seen on 04/14/21. Subjective Chief Complaint/HPI Complains of gia ont he back , both arms and upper part of abdomen. It is papular, non itchy with associated erythema present for years. Objective Physical Examination General Exam: Positive: Alert, Cooperative, No Acute Distress Eye Exam: Positive: PERRLA ENT Exam: Positive: Atraumatic Neck Exam: Positive: Supple; Negative: JVD Chest Exam: Positive: Clear to auscultation, Normal air movement Heart Exam: Positive: Rate Normal, Regular Rhythm, Normal S1, Normal S2; Negative: Murmurs, Rubs Telemetry: Positive: No significant arrhythmia Abdomen Exam: Positive: Normal bowel sounds, Soft; Negative: Tenderness, Hepatospenomegaly Extremity Exam: Negative: Cyanosis Skin Exam: Positive: Rash (on the back, arms and portion of the upper abdomen, erythema, papules, non itchy) Neuro Exam: Positive: Normal Gait Psych Exam: Positive: Oriented x 3 Assessment /Plan Assessment Rash: looks like Pilaris keratosis but it is very wide spread, will start with lachydrin lotion. if that is not enough will likely add triamcinolone to it. Would benefit from referral to dermatology as outpatient. Plan/VTE VTE Prophylaxis Ordered?: No VS, I&O, 24H, Fishbone Vital Signs/I&O Vital Signs Date Time Temp Pulse Resp B/P (MAP) Pulse Ox O2 Delivery O2 Flow Rate FiO2 04/14/21 06:02 97.5 66 18 108/59 (75) 96 Room Air JAYA SCOTT MD Apr 14, 2021 17:39
[2021-04-14] MEDS: QUEtiapine FUMARATE 50MG TAB PO SCH (21:00)
[2021-04-14] MEDS: LACTIC ACID 12% LOTION 225 GM BTL EXT SCH (21:00)
[2021-04-15 06:20] VITALS: BP 126/79
[2021-04-15] MEDS: NICOTINE 21MG/24HR 1 EA TRANSDERMAL TD SCH (08:27)
[2021-04-15] MEDS: OLANZapine ORAL DISINTEGRATING TAB 5MG PO PRN (08:27)
[2021-04-15] MEDS: SERTRALINE HCL 25 MG TABLET PO SCH (08:27)
[2021-04-15] MEDS: LACTIC ACID 12% LOTION 225 GM BTL EXT SCH ×2 (09:00→21:00)
--- NOTE | 2021-04-15 11:54 | MHIPNPDOC ---
[facility] Progress Note Progress Note DATE OF SERVICE: 04/15/21 HISTORY: Patient is a 35 -year-old Single, Unemployed, Domiciled , male, who reports suicidal statement that he was going to jump off the bridge to the ED. Patient self-presented to the hospital reporting that he has been having suicidal ideations for several weeks. He states, "I live in a shitty part of [facility], I am unmedicated and I haven't slept, don't eating, not showering for weeks, there are druggies that have to share a bathroom there are bed bugs. I don't sleep for more than 2-3 hours I don't feel like I slept at all. It is taking its toll on me, it's sad that you don't feel safe in your own house" Patient reports not showering for several weeks, continues to state that he does not like where he lives due to the IV needles in the bathroom, finding people passed on in the bathroom, defecation in the bathroom, not being to make food unless it is microwavable. He states, "It's sad that [facility] puts you there knowing that there are drugs there but you can't do drugs." PER ED REPORT: +SI with plan to jump [place] bridge [place] the river. PT self presents stating he is overwhelmed and cannot stop thinking about jumping off the bridge next to the boarding house he is staying at. In 2019 PT was found in possession of child pornography on his phone and he is preparing for court to have a disposition. The guilt he feels in regards to this has begun to spike "What kind of a person am I?" He has been staying at the boarding house at [address] [place] [address] via [facility] and he states his room does not lock, there are bedbugs and that the shared shower often has drug paraphernalia. He has been referred to a Director Of Business Applications via the [facility] to assist him with finding more appropriate housing. PT's therapist, Deanna, via the [facility] sees PT regularly but he will not see their medication provider until he shows that he will be consistent with his attendance. Currently PT is not eating/drinking consistently and he is not taking acre of hi s ADLs. He attends groups at [facility] but then has nothing to do with his time. He states he is socially drinking only which is an improvement for him and that the only drug he uses is weed. He is +SI and cannot CFS at this time. VITAL SIGNS: See below. CURRENT MEDICATIONS: See below. MENTAL STATUS EXAMINATION: Patient is a 35 -year-old Single, Unemployed, Domiciled , male, who reports suicidal statement that he was going to jump off the bridge to the ED. Speech: Is fluid, conversant, normal rate, tone and volume Language skills are intact Thought processes including: linear and goal oriented Thought content: reports decreased depression and moderate anxiety and improved sleep. Denies suicidal/homicidal ideation, planning or intent. Abstract reas oning, and computation: fair Description of associations: denies, none observed Description of abnormal or psychotic thoughts: denies, none observed. Judgment: fair Insight: fair Orientation: alert and oriented to person, place, time and situation Recent and remote memory: intact Attention span and concentration: good Language: expansive Fund of knowledge: average Mood: Decreased Depressed Mood Affect: Flat DIAGNOSES: Diagnoses Unspecified Depressive Disorder Cannabis Use Disorder Borderline Personality Disorder Alcohol Use Disorder History of Non-compliance ASSESSMENT: Patient is reporting that he feels that his sleep is improving. Discussed with patient the things that cause his need for hospitalization and how to reduce the risk of readmission. States his risks are: 1) not staying or taking his medications, 2) Keeping and going to his appointments, 3) opening up to his therapist. He reports that he was with his therapist when he was sent to the ED for an evaluation. Encouraged patient to be aware of these and to continue to be compliant. Patient can be discharged to home on Sunday. He reports being anxious, decreased depression and no current thoughts of suicidality or homicidality, planning or intent. He does report having negative thoughts if discharged over the weekend due to poor supports. MANAGEMENT PLAN: Continue all medications. Discharge on Sunday TIME SPENT: 25 minutes. Vital Signs Vital Signs Date Time Temp Pulse Resp B/P (MAP) Pulse Ox O2 Delivery O2 Flow Rate FiO2 04/15/21 06:20 98.2 89 12 126/79 (95) 100 Room Air Current Medications Current Medications Medications (Trade) Dose Ordered Sig/Andrea Route PRN Reason Start Time Stop Time Status Last Admin Dose Admin Acetaminophen (Tylenol Tab) 650 mg Q6HP PRN PO HEADACHE or MILD DISCOMFORT 04/07/21 23:00 Al Hydrox/Mg Hydrox/Simethicone (Mylanta) 30 ml Q4HP PRN PO HEARTBURN/INDIGESTION 04/07/21 23:00 Docusate Sodium (Colace) 100 mg BIDP PRN PO CONSTIPATION 04/11/21 13:50 Home Med (Med Rec Complete!) ASDIRECTED XX 04/08/21 00:25 04/08/21 00:28 DC Hydroxyzine HCl (Atarax) 25 mg Q8HP PRN PO ANXIETY 04/07/21 23:00 04/14/21 09:16 Lactic Acid (Lac-Hydrin 12% Lotion) apply to back, arms ... BID EXT 04/14/21 21:00 04/14/21 21:00 Magnesium Hydroxide (Milk Of Magnesia) 30 ml DAILYPRN PRN PO CONSTIPATION 04/07/21 23:00 Nicotine (Nicoderm Cq 21mg) 1 patch DAILY TD 04/08/21 09:00 04/15/21 08:27 Olanzapine (ZyPREXA ZYDIS) 5 mg Q8HP PRN PO AGITATION 04/07/21 23:00 04/15/21 08:27 Quetiapine Fumarate (SEROquel) 50 mg QHS PO 04/13/21 21:00 04/14/21 21:00 Sertraline HCl (Zoloft) 50 mg DAILY PO 04/08/21 09:00 04/11/21 10:00 DC 04/11/21 08:18 Sertraline HCl (Zoloft) 75 mg DAILY PO 04/12/21 09:00 04/15/21 08:27 Trazodone HCl (Desyrel) 50 mg QHSP PRN PO INSOMNIA 04/07/21 23:00 04/10/21 10:13 DC 04/09/21 22:11 Trazodone HCl (Desyrel) 75 mg QHS PRN PO sleep 04/10/21 10:10 04/13/21 10:22 DC 04/12/21 22:10 Allergies Coded Allergies: clonidine (Verified Adverse Reaction, Mild, 01/16/19) DONITA WHITTINGTON P[employer]TER [employer] Apr 15, 2021 11:54
[2021-04-15 17:57] VITALS: BP 154/87
[2021-04-15] MEDS: QUEtiapine FUMARATE 50MG TAB PO SCH (21:51)
[2021-04-16 06:45] VITALS: BP 142/86
[2021-04-16] MEDS: LACTIC ACID 12% LOTION 225 GM BTL EXT SCH ×2 (08:20→21:14)
[2021-04-16] MEDS: OLANZapine ORAL DISINTEGRATING TAB 5MG PO PRN (08:23)
[2021-04-16] MEDS: SERTRALINE HCL 25 MG TABLET PO SCH (08:23)
[2021-04-16] MEDS: NICOTINE 21MG/24HR 1 EA TRANSDERMAL TD SCH (08:23)
[2021-04-16 16:46] VITALS: BP 149/88
[2021-04-16] MEDS: QUEtiapine FUMARATE 50MG TAB PO SCH (21:13)
[2021-04-17 06:49] VITALS: BP 139/99
[2021-04-17] MEDS: LACTIC ACID 12% LOTION 225 GM BTL EXT SCH ×2 (09:00→21:11)
[2021-04-17] MEDS: SERTRALINE HCL 25 MG TABLET PO SCH (12:13)
[2021-04-17] MEDS: NICOTINE 21MG/24HR 1 EA TRANSDERMAL TD SCH (12:15)
[2021-04-17] MEDS: QUEtiapine FUMARATE 50MG TAB PO SCH (21:12)
[2021-04-18] MEDS: LACTIC ACID 12% LOTION 225 GM BTL EXT SCH (08:21)
[2021-04-18] MEDS: NICOTINE 21MG/24HR 1 EA TRANSDERMAL TD SCH (08:22)
[2021-04-18] MEDS: SERTRALINE HCL 25 MG TABLET PO SCH (08:23)
[2021-04-18] MEDS ORDERED: NICO21PAT TD (09:30)
[2021-04-18] MEDS ORDERED: SERT25TA21 PO (09:30)
[2021-04-18] MEDS ORDERED: HYDR-3363 PO (09:30)
[2021-04-18] MEDS ORDERED: QUET50TA3 PO (09:30)
[2021-04-18] MEDS ORDERED: AMMO12LO EXT (09:30)
--- NOTE | 2021-04-18 10:02 | MHDSPDOC ---
[facility] Discharge Summary Discharge Summary DATE OF ADMISSION: Apr 07, 2021 at 17:07 DATE OF DISCHARGE: April 18, 2021 at 0952 DISCHARGE DIAGNOSES: Unspecified Depressive Disorder Cannabis Use Disorder Borderline Personality Disorder Alcohol Use Disorder History of Non-compliance REASON FOR ADMISSION: HISTORY: Patient is a 35 -year-old Single, Unemployed, Domiciled , male, who reports suicidal statement that he was going to jump off the bridge to the ED. Patient self-presented to the hospital reporting that he has been having suicidal ideations for several weeks. He states, "I live in a shitty part of [facility], I am unmedicated and I haven't slept, don't eating, not showering for weeks, there are druggies that have to share a bathroom there are bed bugs. I don't sleep for more than 2-3 hours I don't feel like I slept at all. It is taking its toll on me, it's sad that you don't feel safe in your own house" Patient reports not showering for several weeks, continues to state that he does not like where he lives due to the IV needles in the bathroom, finding people passed on in the bathroom, defecation in the bathroom, not being to make food unless it is microwavable. He states, "It's sad that [facility] puts you there knowing that there are drugs there but you can't do drugs." PER ED REPORT: +SI with plan to [place]. PT self presents stating he is overwhelmed and cannot stop thinking about jumping off the bridge next to the boarding house he is staying at. In 2018 PT was found in possession of child pornography on his phone and he is preparing for court to have a disposition. The guilt he feels in regards to this has begun to spike "What kind of a person am I?" He has been staying at the boarding house at [address] [place] [address] via [facility] and he states his room does not lock, there are bedbugs and that the shared shower often has drug paraphernalia. He has been referred to a E Commerce Merchant via the [facility] to assist him with finding more appropriate housing. PT's therapist, Deanna, via the [facility] sees PT regularly but he will not see their medication provider until he shows that he will be consistent with his attendance. Currently PT is not eating/drinking consistently and he is not taking acre of his ADLs. He attends groups at [facility] but then has nothing to do with his time. He states he is socially drinking only which is an improvement for him and that the only drug he uses is weed. He is +SI and cannot CFS at this time. VITAL SIGNS: See below. CONSULTANTS INVOLVED: See Medical H + P by Hospitalist TREATMENT AND PROGRESS ON THE UNIT: Patient was admitted to the [facility] on a legal status he was afforded the following treatment modalities: 1) Individual Therapy 2) Group Therapy 3) Medication Management 4) Milieu Therapy 5) Safe Environment HOSPITAL COURSE: Patient was admitted to [facility] on a legal status for his admission that he w as feeling suicidal and having thoughts to jump from a bridge. His home medications were resumed, he had complained about sleep and Trazodone was not effective. Seroquel 50 mg was added to the medication regimen and this was effective. Patient's biggest stressor is a possible future court date regarding charges of possession of pictures and videos on his electronic devices of young children in sexual acts. Patient was not forthcoming with this information, but the postulation is that his increased depression and anxiety stems from this. In his statements, he states that he doesn't like where he lives because of the drug activity. Patient was cooperative in the group therapy sessions, he attended individual sessions and he was social with peers. At this time, he is reporting decrease in depression and anxiety and he denies suicidal thinking. He is requesting discharge today and he mets criteria to return home. DISCHARGE ASSESSMENT: n today's interview, patient is alert and oriented, pts dress is appropriate. Hygiene and grooming is well-kempt. Smiles on approach and is pleasant and engaged in the interview. Denies depression and anxiety. Denies suicidal and homicidal ideation, planning or intent. Denies and is not observed with neo, psychotic symptoms of delusions, bizarre thinking, obsessions, paranoia, ruminations illogical thoughts, flight of ideas or having poor insight and judgement. Patient has normal mentation, declines further hospitalization on a voluntary status and meets criteria for discharge today. MENTAL STATUS EXAMINATION ON DISCHARGE: Patient is a -year old male, who is . Speech: Is fluid, conversant, normal rate, tone and volume Language skills are intact Thought processes including: linear and goal oriented Thought content: denies depression and anxiety. Denies suicidal/homicidal ideation, planning or intent. Abstract reasoning, and computation: fair Description of associations: denies, none observed Description of abnormal or psychotic thoughts: denies, none observed. Judgment: fair Insight: fair Orientation: alert and oriented to person, place, time and situation Recent and remote memory: intact Attention span and concentration: good Language: expansive Fund of knowledge: average Mood: Euthymic Mood Affect: reactive MEDICATIONS ON DISCHARGE: See Medication Reconciliation PLAN/FOLLOWUP ARRANGEMENTS: Patient goes to [facility] and has an appointment later in the month The amount of time spent in the coordination of care for this patient was approximately 25 minutes. ETOH/Disorder Med Rx ETOH/DRUG DISORDER RX: Offrd @ d/c & pt refused Vital Signs/I&Os Vital Signs Date Time Temp Pulse Resp B/P (MAP) Pulse Ox O2 Delivery O2 Flow Rate FiO2 04/17/21 06:49 97.3 71 20 139/99 (112) 98 Room Air Medications Scheduled Ammonium Lactate (Ammonium Lactate) 12% Lotion, 0 DOSE EXT BID for Rash, #1 Nicotine (Nicotine Patch) 21 Mg Patch.td24, 1 PATCH TD DAILY for Nicotine Withdrawal, #7 Quetiapine Fumarate (Quetiapine Fumarate) 50 Mg Tablet, 50 MG PO QHS for Sleep, #7 Sertraline HCl (Sertraline HCl) 25 Mg Tablet, 75 MG PO DAILY for Mood, #21 Scheduled PRN Hydroxyzine HCl (Hydroxyzine HCl) 25 Mg Tablet, 25 MG PO BIDP PRN for ANXIETY, #14 Allergies Coded Allergies: clonidine (Verified Adverse Reaction, Mild, 01/16/19) DONITA WHITTINGTON NP Apr 18, 2021 10:02
== END 2021-04-18 12:18 | disposition home or self-care (01) | DRG 754 ==
LOC: M ED 17:06 → M ED INP 17:07 → M PSY 04-08 00:12
PROVIDERS: ADMIT Psychiatry & Neurology Psychiatry; ATTEND Psychiatry & Neurology Psychiatry
DX: F32.9 Major depressive disorder, single episode, unspecified (principal); F12.10 Cannabis abuse, uncomplicated; F10.10 Alcohol abuse, uncomplicated; F60.3 Borderline personality disorder; F17.200 Nicotine dependence, unspecified, uncomplicated; R45.851 Suicidal ideations; L85.8 Other specified epidermal thickening; Z59.1 Inadequate housing; Z65.3 Problems related to other legal circumstances; Z20.822 Contact with and (suspected) exposure to COVID-19; Z88.8 Allergy status to other drugs, medicaments and biological substances; Z91.19 Patient's noncompliance with other medical treatment and regimen

== ENCOUNTER → 2023-01-18 | Outpatient (CLI) | payer OTHER ==
[~2023-01-18] MED LIST changes: +AMMO12LO EXT; +HYDR-3363 PO; +QUET1TAB17 PO; -QUET25TA3 PO; -QUET50TA3; -QUET50TA3 PO; +QUET50TA4; +QUET50TA4 PO; +SERT25TA21 PO
== END ==
LOC: M EKG 08:51
PROVIDERS: ATTEND Nurse Practitioner Psychiatric/Mental Health
DX: F90.2 Attention-deficit hyperactivity disorder, combined type (principal)

== ENCOUNTER → 2024-04-15 | Outpatient (CLI) | payer OTHER | LOC: M OUTALCOH 10:01 | PROVIDERS: ATTEND Psychiatry & Neurology Psychiatry | DX: F15.20 Other stimulant dependence, uncomplicated (principal); F12.10 Cannabis abuse, uncomplicated; F17.200 Nicotine dependence, unspecified, uncomplicated; F10.20 Alcohol dependence, uncomplicated ==

== ENCOUNTER 2024-04-28 12:30 | Inpatient (IN) | payer OTHER ==
[~2024-04-28] VITALS: Ht 165.1 cm; Wt 78.5 kg
[2024-04-28] MEDS ORDERED: ADDE20CA3 PO (13:03)
[2024-04-28] MEDS ORDERED: HALO20TA PO (13:03)
[2024-04-28] MEDS ORDERED: KLON0.5T8 PO (13:03)
[2024-04-28] MEDS ORDERED: ADDE1TAB14 PO (13:03)
[2024-04-28 13:53] LABS: AMPHETAMINES LEVEL URINE NEGATIVE (NEGATIVE)
[2024-04-28 13:54] LABS: BARBITURATES URINE NEGATIVE (NEGATIVE); BENZODIAZEPINES URINE NEGATIVE (NEGATIVE); COCAINE METABOLITE URINE NEGATIVE (NEGATIVE); METHADONE URINE NEGATIVE (NEGATIVE); OPIATES URINE NEGATIVE (NEGATIVE); PHENCYCLIDINE URINE NEGATIVE (NEGATIVE)
[2024-04-28 13:56] LABS: CANNABINOIDS URINE POSITIVE (NEGATIVE)
[2024-04-28 14:29] LABS: HEMOGLOBIN 14.1 g/dl (13.5-17.5); MEAN CORPUSCULAR HGB CONC 34.4 g/dl (32.0-36.5); MEAN CORPUSCULAR VOLUME 90.1 fl (80.0-96.0); PLATELET COUNT, AUTOMATED 225 10^3/uL (150-450); RED BLOOD COUNT 4.55 10^6/uL (4.30-6.10); WHITE BLOOD COUNT 12.5 10^3/uL (4.0-10.0)
[2024-04-28 14:59] LABS: ETHYL ALCOHOL (ETHANOL) < 0.003 % (0.000-0.010)
[2024-04-28 15:01] LABS: ALBUMIN 3.6 G/DL (3.2-5.2); ALKALINE PHOSPHATASE 78 U/L (46-116); ALT/SGPT 24 U/L (7.0-40); AST/SGOT 10 U/L (<34); BILIRUBIN,DIRECT < 0.1 MG/DL (<0.4); BILIRUBIN,TOTAL 0.3 MG/DL (0.3-1.2); BLOOD UREA NITROGEN 5 MG/DL (9-23); CALCIUM LEVEL 8.5 MG/DL (8.5-10.1); CARBON DIOXIDE LEVEL 29 MMOL/L (20-31); CHLORIDE LEVEL 109 MMOL/L (98-107); CREATININE FOR GFR 0.62 MG/DL (0.70-1.30); GLOMERULAR FILTRATION RATE > 60.0 (>60); GLUCOSE, FASTING 84 MG/DL (60-100); POTASSIUM SERUM 3.4 MMOL/L (3.5-5.1); SALICYLATE LEVEL < 3.0 MG/DL (<30); SODIUM LEVEL 145 MMOL/L (136-145); TOTAL PROTEIN 6.3 G/DL (5.7-8.2)
[2024-04-28] MEDS: METOPROLOL TART 50 MG TAB PO ONE (15:07)
[2024-04-28] MEDS ORDERED: CLON1TAB8 PO (17:25)
[2024-04-28] MEDS ORDERED: HOME MED LIST COMPLETE! XX SCH (17:30)
[2024-04-29] MEDS: ADDERALL 5 MG TAB PO SCH ×2 (09:05→13:27)
[2024-04-29] MEDS: METOPROLOL TART 50 MG TAB PO SCH (09:08)
[2024-04-29] MEDS ORDERED: ADDE20TA PO (11:12)
[2024-04-29] MEDS ORDERED: ACETAMINOPHEN TAB 650MG DOSE (2X325MG) PO PRN (12:35)
[2024-04-29] MEDS ORDERED: MOM 30ML SUSPENSION UDC PO PRN (12:35)
[2024-04-29] MEDS ORDERED: MAALOX 30 ML SUSP *UDC PO PRN (12:35)
[2024-04-29] MEDS ORDERED: IBUPROFEN 400MG TAB PO PRN (12:35)
[2024-04-29] MEDS ORDERED: traZODone 50 MG TAB PO PRN (12:35)
[2024-04-29] MEDS ORDERED: diphenhydrAMINE 25MG CAP PO PRN (12:35)
[2024-04-29] MEDS: NICOTINE 21MG/24HR 1 EA TRANSDERMAL TD SCH (13:30)
[2024-04-30 06:40] VITALS: BP 174/112; TEMP 97.6; O2SAT 100
[2024-04-30 07:12] VITALS: BP 164/120
[2024-04-30] MEDS ORDERED: ALBUTEROL 90 MCG/ACT 8GM HFA INHALER INH PRN (08:55)
[2024-04-30] MEDS ORDERED: HALO1TAB PO (10:42)
[2024-04-30 13:31] VITALS: BP 164/102
[2024-04-30 17:39] VITALS: BP 162/102; TEMP 97.9
[2024-04-30 20:00] VITALS: BP 152/90; O2SAT 98
[2024-04-30] MEDS: traZODone 25MG PER 1/2 TABLET PO SCH (21:37)
[2024-04-30] MEDS: clonazePAM 1 MG TAB PO SCH (21:37)
[2024-05-01 06:27] VITALS: BP 150/110; TEMP 97.4; O2SAT 100
[2024-05-01 07:05] LABS: CHOLESTEROL RISK RATIO 4.14 (<5); HDL CHOLESTEROL 49.2 MG/DL (>40); LDL CHOLESTEROL 116.4 MG/DL (<100); NON-HDL-C 154.8 MG/DL
[2024-05-01] MEDS: AMPHETAMINE/DEXTROAMPHETAMINE 5 MG *ER* CAPSULE (ADDERALL XR) PO SCH (12:37)
[2024-05-01 12:44] VITALS: BP 168/102
[2024-05-01 18:52] VITALS: BP 170/110; TEMP 98.4; O2SAT 100
[2024-05-01] MEDS: **hydrALAZINE HCL** 25 MG TAB PO ONE (19:53)
[2024-05-01] MEDS: traZODone 50 MG TAB PO SCH (21:24)
[2024-05-01] MEDS: traZODone 25MG PER 1/2 TABLET PO SCH (21:24)
[2024-05-01 22:29] LABS: BASO % 0.3 % (0.0-1.0); EOS # 0.1 10^3/uL (0.0-0.5); EOS % 0.6 % (0.0-3.0); HEMATOCRIT 43.8 % (42.0-52.0); HEMOGLOBIN 14.7 g/dl (13.5-17.5); LYMPH # 2.8 10^3/uL (1.5-5.0); LYMPH % 25.4 % (24.0-44.0); MEAN CORPUSCULAR HEMOGLOBIN 30.4 pg (27.0-33.0); MEAN CORPUSCULAR HGB CONC 33.6 g/dl (32.0-36.5); MEAN CORPUSCULAR VOLUME 90.5 fl (80.0-96.0); MONO # 0.9 10^3/uL (0.0-0.8); MONO % 8.5 % (2.0-8.0); NEUTROPHILS # 7.1 10^3/uL (1.5-8.5); NEUTROPHILS % 64.8 % (36.0-66.0); PLATELET COUNT, AUTOMATED 221 10^3/uL (150-450); RED BLOOD COUNT 4.84 10^6/uL (4.30-6.10); WHITE BLOOD COUNT 10.9 10^3/uL (4.0-10.0)
[2024-05-01 22:47] VITALS: BP 170/110
[2024-05-01 23:00] LABS: THYROID STIMULATING HORMONE 1.616 uIU/ML (0.55-4.78)
[2024-05-01 23:09] LABS: ALBUMIN 3.8 G/DL (3.2-5.2); ALKALINE PHOSPHATASE 77 U/L (46-116); ALT/SGPT 36 U/L (7.0-40); AST/SGOT 14 U/L (<34); BILIRUBIN,TOTAL 0.2 MG/DL (0.3-1.2); BLOOD UREA NITROGEN 21 MG/DL (9-23); CALCIUM LEVEL 9.9 MG/DL (8.5-10.1); CARBON DIOXIDE LEVEL 32 MMOL/L (20-31); CHLORIDE LEVEL 104 MMOL/L (98-107); CREATININE FOR GFR 0.78 MG/DL (0.70-1.30); GLOMERULAR FILTRATION RATE > 60.0 (>60); GLUCOSE, FASTING 73 MG/DL (60-100); MAGNESIUM LEVEL 1.7 MG/DL (1.8-2.4); POTASSIUM SERUM 3.5 MMOL/L (3.5-5.1); SODIUM LEVEL 140 MMOL/L (136-145); TOTAL PROTEIN 6.8 G/DL (5.7-8.2)
[2024-05-01] MEDS: MAGNESIUM OXIDE 400MG TAB (MAG-OX) PO SCH (23:45)
[2024-05-02] MEDS: CHLORTHALIDONE 12.5MG PER 1/2 TABLET PO SCH (09:00)
[2024-05-02] MEDS: **hydrALAZINE HCL** 25 MG TAB PO SCH (09:00)
[2024-05-02] MEDS ORDERED: NICOTINE 21MG/24HR 1 EA TRANSDERMAL As Ordered ONE (09:50)
[2024-05-02] MEDS ORDERED: clonazePAM 1 MG TAB As Ordered ONE (09:50)
[2024-05-02] MEDS ORDERED: AMPHETAMINE/DEXTROAMPHETAMINE 5 MG *ER* CAPSULE (ADDERALL XR) As Ordered ONE (09:50)
[2024-05-02] MEDS ORDERED: MAGNESIUM OXIDE 400MG TAB (MAG-OX) As Ordered ONE (11:12)
[2024-05-02 12:41] VITALS: BP 138/88
[2024-05-02 17:31] VITALS: BP 152/92; TEMP 97.1; O2SAT 92
[2024-05-02 20:31] VITALS: BP 162/102
[2024-05-02 21:30] VITALS: BP 150/88
[2024-05-03 06:23] VITALS: BP 162/98; TEMP 97.9; O2SAT 97
[2024-05-03] MEDS: **hydrALAZINE** 50 MG TAB PO SCH (16:14)
[2024-05-03 16:53] VITALS: BP 154/100; TEMP 98.7; O2SAT 98
[2024-05-04 06:22] VITALS: BP 149/85; TEMP 97.3; O2SAT 99
[2024-05-04 18:14] VITALS: BP 152/98; TEMP 98.2; O2SAT 100
[2024-05-04 20:56] VITALS: BP 148/94
[2024-05-05 06:15] VITALS: BP 137/83; TEMP 97.3; O2SAT 99
[2024-05-05 08:36] VITALS: BP 154/97
[2024-05-05] MEDS ORDERED: AMPH1CAP15 PO ×2 (09:36→09:37)
[2024-05-05] MEDS ORDERED: CLON1TAB8 PO (09:36)
[2024-05-05] MEDS ORDERED: NICO21PAT TD (09:36)
[2024-05-05] MEDS ORDERED: HALO1TAB19 PO (09:36)
[2024-05-05] MEDS ORDERED: TRAZ-252 PO (09:36)
[2024-05-05] MEDS ORDERED: LISI20TA33 PO (09:36)
[2024-05-05] MEDS ORDERED: CHLO125TA PO (09:36)
[2024-05-05] MEDS ORDERED: HYDR50TA46 PO (09:36)
== END 2024-05-05 13:19 | disposition home or self-care (01) | DRG 753 ==
LOC: M ED 12:30 → M PSY 04-29 12:33 → M ED 04-29 16:12 → M PSY 04-30 13:24
PROVIDERS: ADMIT Student in an Organized Health Care Education/Training Program; ATTEND Student in an Organized Health Care Education/Training Program
DX: F31.9 Bipolar disorder, unspecified (principal); E11.9 Type 2 diabetes mellitus without complications; R45.851 Suicidal ideations; F65.4 Pedophilia; F15.10 Other stimulant abuse, uncomplicated; F60.89 Other specific personality disorders; I10 Essential (primary) hypertension; F17.210 Nicotine dependence, cigarettes, uncomplicated; Z56.0 Unemployment, unspecified; Z81.8 Family history of other mental and behavioral disorders; Z79.899 Other long term (current) drug therapy; Z65.3 Problems related to other legal circumstances; Z88.8 Allergy status to other drugs, medicaments and biological substances

== ENCOUNTER 2024-05-05 08:40 | Outpatient (RCR) | payer OTHER ==
[~2024-05-05 08:40] MED LIST changes: +ADDE20CA3 PO; +ADDE20TA PO; +HALO1TAB PO; +HALO20TA PO; +KLON0.5T8 PO
[2024-05-05] MEDS ORDERED: NICO21PAT TD (09:36)
[2024-05-05] MEDS ORDERED: TRAZ-252 PO (09:36)
[2024-05-05] MEDS ORDERED: AMPH1CAP15 PO ×2 (09:36→09:37)
[2024-05-05] MEDS ORDERED: HYDR50TA46 PO (09:36)
[2024-05-05] MEDS ORDERED: CHLO125TA PO (09:36)
[2024-05-05] MEDS ORDERED: LISI20TA33 PO (09:36)
[2024-05-05] MEDS ORDERED: CLON1TAB8 PO (09:36)
[2024-05-05] MEDS ORDERED: HALO1TAB19 PO (09:36)
== END 2024-05-14 ==
LOC: M OUTALCOH 08:40
PROVIDERS: ATTEND Psychiatry & Neurology Psychiatry
DX: F15.20 Other stimulant dependence, uncomplicated (principal); F12.10 Cannabis abuse, uncomplicated; F17.200 Nicotine dependence, unspecified, uncomplicated; F10.20 Alcohol dependence, uncomplicated

== ENCOUNTER → 2024-06-19 | Outpatient (CLI) | payer OTHER ==
[~2024-06-19] MED LIST changes: +AMPH1CAP15 PO; +CHLO125TA PO; +GABA-1490 PO; -GABA600T4 PO; +HALO1TAB19 PO; +HYDR50TA46 PO; +LISI20TA33 PO; +TRAZ-252 PO
== END ==
LOC: M OUTALCOH 11:46
PROVIDERS: ATTEND Psychiatry & Neurology Psychiatry
DX: F15.20 Other stimulant dependence, uncomplicated (principal); F12.20 Cannabis dependence, uncomplicated; F17.200 Nicotine dependence, unspecified, uncomplicated; F10.20 Alcohol dependence, uncomplicated

== ENCOUNTER → 2024-07-14 | Outpatient (RCR) | payer OTHER | LOC: M OUTALCOH 06-26 15:04 | PROVIDERS: ATTEND Psychiatry & Neurology Psychiatry | DX: F15.20 Other stimulant dependence, uncomplicated (principal); F12.20 Cannabis dependence, uncomplicated; F10.10 Alcohol abuse, uncomplicated; F17.200 Nicotine dependence, unspecified, uncomplicated ==

== ENCOUNTER → 2024-08-14 | Outpatient (RCR) | payer OTHER | LOC: M OUTALCOH 07-17 15:12 | PROVIDERS: ATTEND Psychiatry & Neurology Psychiatry | DX: F15.20 Other stimulant dependence, uncomplicated (principal); F12.20 Cannabis dependence, uncomplicated; F17.200 Nicotine dependence, unspecified, uncomplicated; F10.10 Alcohol abuse, uncomplicated ==

== ENCOUNTER 2024-09-10 16:00 | Outpatient (RCR) | payer OTHER | END 2024-09-13 | LOC: M OUTALCOH 16:00 | PROVIDERS: ATTEND Psychiatry & Neurology Psychiatry | DX: F15.20 Other stimulant dependence, uncomplicated (principal); F12.20 Cannabis dependence, uncomplicated; F17.200 Nicotine dependence, unspecified, uncomplicated; F10.10 Alcohol abuse, uncomplicated ==